=== PATIENT | male | born 1970 ===

== ENCOUNTER 2020-05-23 08:24 | Outpatient (REF) | payer OTHER, SELFPAY ==
[2020-05-23 09:35] LABS: Alanine Aminotransferase 16 U/L (0-40); Albumin Level 4.4 g/dL (3.5-5.0); Alkaline Phosphatase 54 U/L (39-117); Anion Gap 13 (12-20); Aspartate Amino Transferase 15 U/L (5-37); Bilirubin Total 0.6 mg/dL (0.0-1.0); Blood Urea Nitrogen 19 mg/dL (9-16); Calcium 9.4 mg/dL (8.4-10.2); Carbon Dioxide 30 mmol/L (22-29); Chloride 101 mmol/L (96-108); Cholesterol 302 mg/dL; Estimated Glomerular Filt Rate 54; Glucose Fasting 116 mg/dL (60-99); HDL Cholesterol 42 mg/dL; Potassium 3.7 mmol/l (3.3-5.1); Sodium 140 mmol/L (135-145); Total Protein 7.2 g/dL (6.5-8.0); Triglycerides 737 mg/dL
== END 2020-05-23 08:25 | disposition home or self-care (01) ==
LOC: HO.LAB 08:24
PROVIDERS: Visit Provider Internal Medicine
DX: Z12.12 Encounter for screening for malignant neoplasm of rectum (principal); Z12.11 Encounter for screening for malignant neoplasm of colon; E78.2 Mixed hyperlipidemia; I10 Essential (primary) hypertension; R00.0 Tachycardia, unspecified
CPT/HCPCS: 80053; 80061

== ENCOUNTER 2020-05-30 15:49 | Emergency (ER) | payer OTHER, SELFPAY ==
[2020-05-30 16:07] VITALS: BP 171/110; BP 195/107; PULSE 71; PULSE 98; RESP 20; TEMP 36.7; O2SAT 100; O2SAT 97; BMI 22.6
--- NOTE | 2020-05-30 17:43 | XR_ITS ---
EXAMINATION: XR CHEST CLINICAL INFORMATION: Chest pain COMPARISON: Prior chest 2019 TECHNIQUE: 2 views of the chest were obtained. FINDINGS: No significant abnormality is noted involving the heart, lungs, mediastinum, bony thorax or soft tissues. XR/XR chest 2V IMPRESSION: Unremarkable examination.
--- NOTE | 2020-05-30 17:51 | ED.CHESTPAIN ---
HPI - Chest Pain General Chief Complaint: Chest Pain Stated Complaint: htn Time Seen by Provider: 05/30/20 17:20 Source: patient and care transition mgr Mode of arrival: ambulatory Limitations: no limitations and language barrier History of Present Illness HPI narrative: 50-year-old male with a past medical history of anxiety, depression, GERD, asthma, hypertension and hyperlipidemia here with hypertension, chest discomfort, anxiety and palpitations since this morning. The patient tells me his blood pressure has been running high at home for the last month. His doctor has been changing his medications. He last saw his PCP on 05/27 and Norvasc 5 mg was started. The patient tells me he did not want to take his medications as he previously had a reaction and that the pain and did not take it. He is on propanolol 60 mg daily and clonidine 0.1 mg p.r.n.. Today he tells me he woke up with some chest discomfort and feeling anxious with palpitations. He checked his blood pressure at home and it was 200/100 and he brought himself to the emergency department. No headache, vomiting, vision changes. MD complaint: chest discomfort Onset (ago): day(s) Prior episodes: Yes Onset: awoke with symptoms Pain location: substernal Pain radiation: none Severity: mild Quality: heaviness Relieving factors: nothing Exacerbating factors: nothing Treatment prior to arrival: none Related Data Home Medications Medication Instructions Recorded Confirmed albuterol sulfate 90 mcg/actuation 2 puff PO Q4-6H PRN 04/22/20 04/22/20 aerosol inhaler famotidine 40 mg tablet 40 mg PO BID PRN 04/22/20 05/27/20 montelukast 10 mg tablet 10 mg PO DAILY 04/22/20 05/27/20 clonidine HCl 0.1 mg tablet 0.1 mg PO DAILY tab 05/27/20 05/27/20 fluticasone 250 mcg-salmeterol 50 1 inh INHALATION BID ea 05/27/20 05/27/20 mcg/dose blistr powdr for inhalation gabapentin 800 mg tablet 800 mg PO BID tab 05/27/20 05/27/20 Previous Rx's Medication Instructions Recorded escitalopram oxalate 10 mg tablet 10 mg PO DAILY 30 Days #30 tab 04/22/20 alprazolam 0.25 mg tablet 0.25 mg PO BEDTIME PRN #14 tab 05/27/20 amlodipine 5 mg tablet 5 mg PO DAILY #30 tab 05/27/20 hydrochlorothiazide 25 mg PO DAILY #20 tab 05/30/20 Allergies Allergy/AdvReac Type Severity Reaction Status Date / Time sumatriptan Allergy Unknown headaches Verified 05/30/20 16:12 nifedipine AdvReac Intermediate anxious Verified 05/30/20 16:12 Review of Systems Review of Systems: Yes all other systems are reviewed and are negative Constitutional: Constitutional: Reports no additional constitutional complaints, Denies body ache(s), Denies chills, Denies fever(s), Denies headache(s) and Denies weakness Eyes: Eyes: Reports no additional eye complaints and Denies change in vision ENT: Reports system reviewed and no additional complaints, except as documented, Denies dizziness, Denies headache(s), Denies nasal congestion, Denies nasal discharge and Denies neck pain Cardiovascular: Cardiovascular: Reports no additional cardiovascular complaints, Reports chest pain, Denies leg edema and Denies dyspnea Comments: Palpitation Respiratory: Respiratory: Reports no additional respiratory complaints, Denies cough and Denies dyspnea Gastrointestinal: Gastrointestinal: Reports no additional gastrointestinal complaints, Denies abdominal pain, Denies diarrhea, Denies nausea and Denies vomiting Genitourinary: Genitourinary: Denies urinary incontinence Musculoskeletal: Musculoskeletal: Reports no additional musculoskeletal complaints, Denies back pain, Denies arthralgias, Denies joint swelling, Denies neck pain, Denies numbness and Denies tingling Integumentary/Breasts: Skin/Breast: Reports system reviewed and no additional complaints, except as docu and Denies rash Neurologic: Reports system reviewed and no additional complaints, except as documented, Denies Abnormal speech present, Denies dizziness, Denies headache(s), Denies numbness, Denies tingling and Denies weakness Psychiatric: Psychiatric: Reports anxiety PMFSH Past Medical History Attestation statement: The following information was validated with the patient. Source: old records reviewed and nursing notes reviewed Medical History Essential hypertension GERD (gastroesophageal reflux disease) Headache Hyperostosis Mixed hyperlipidemia Moderate asthma Severe depression Tachycardia Surgical History History of hernia surgery Family History Family History Father No problems noted. Mother No problems noted. Social History Social History Smoking Status: Former smoker Advance Directives: No Advance Directives Information Provided: Yes Physical Exam Vital Signs: Vital Signs: Last Vital Signs Temp 98.6 F 05/30/20 19:37 Pulse 69 05/30/20 19:37 Resp 12 05/30/20 19:37 BP 146/102 H 05/30/20 19:37 Pulse Ox 97 05/30/20 19:37 Body Mass Index 22.6 Const: Other: anxious General: cooperative Orientation/consciousness: patient oriented x3 Limitations: no limitations HENMT: Head: Yes normal to inspection Ears: hearing grossly normal bilaterally General nose exam: Normal external nose present Face and sinus: Yes normal facial exam Mouth: Normal oral and palatal mucosa present Throat: Yes posterior oropharynx normal Eyes: General: appearance normal, both eyes and all related structures Pupils: Equal, round and reactive pupils present Neck: Neck: Yes normal visual inspection Chest: Chest palpation & inspection: normal inspection of the chest Resp: Effort & Inspection: normal respiratory effort Auscultation: clear to auscultation bilaterally Cardio: Rate: regular rate Rhythm: regular rhythm Peripheral pulses: Peripheral pulses 2+ throughout GI: Inspection: Yes normal to inspection Palpation (GI): Soft to palpation and nontender Auscultation: normal bowel sounds Back/Spine/Pelvis: Thoracic/Lumbar Spine: thoracic and lumbar spine normal to inspection Skin: General skin exam: no rashes or lesions noted Neuro: General: patient oriented x3, no focal motor deficits and normal sensation to monofilament Cranial nerves: Yes Equal, round and reactive pupils present Cognition (Neuro): normal cognition Speech: No Abnormal speech present Gait exam (Neuro): Normal gait present Motor exam (neuro): 5/5 motor strength present throughout Extrem: General: Yes normal to inspection Course Course Course Narrative: 50-year-old male here with high blood pressure, chest discomfort, anxiety and palpitations with waking this morning. He does have chronic high blood pressure which is uncontrolled. He did see his primary care doctor this week and was recommended to start a new medication but he has been noncompliant with this. On arrival the patient has a normal exam, he is well appearing although very anxious. He is hypertensive with a blood pressure of 170/110. Will check chest x-ray, EKG, labs including troponin and manage blood pressure here. 2000- blood pressure now improved to 146/102. Patient is feeling improved. His labs include troponin are unremarkable. His chest x-ray is also unremarkable his EKG is unremarkable. Discussed findings with patient. We will send him home with hydrochlorothiazide and have him follow-up with his primary care doctor in 1-2 days. Reviewed worrisome signs and symptoms and when to return to the emergency department. Comfortable discharge home. MDM - Chest Pain MDM Narrative Medical decision making narrative: Hypertensive urgency, ACS, anxiety, This likely hypertensive urgency with improving blood pressure when 1 dose of antihypertensives, less likely ACS with negative troponin unremarkable EKG, Medical Records Data Attestation: I reviewed the patient's medical records. Lab Data Attestation: I reviewed the patient's lab results. Result diagrams: 05/30/20 18:33 05/30/20 18:33 Labs: Lab Results 05/30/20 05/30/20 05/30/20 Range/Units 18:33 18:33 18:33 WBC 8.9 (4.8-10.8) X10*3/uL RBC 4.35 L (4.60-5.80) X10*6/uL Hgb 13.5 L (14.0-18.0) g/dl Hct 38.3 L (42-52) % MCV 88.0 (80-98) fL MCH 31.0 (27.0-33.0) pg MCHC 35.2 (31.0-36.0) g/dl RDW 12.4 (11.0-16.0) % Plt Count 204 (160-400) X10*3/uL MPV 12.3 (9.4-12.4) fL Immature Gran % (Auto) 0.4 (0.0-0.4) % Neut % (Auto) 77.9 H (45-73) % Lymph % (Auto) 14.9 L (20-40) % Bartholomew % (Auto) 5.7 (2-11) % Eos % (Auto) 0.9 (0-4) % Baso % (Auto) 0.2 (0-2) % Lymph # (Auto) 1.3 (1.2-4.9) X10*3/uL Bartholomew # (Auto) 0.5 (0.1-1.2) X10*3/uL Eos # (Auto) 0.1 (0.0-0.4) X10*3/uL Baso # (Auto) 0.0 (0.0-0.2) X10*3/uL Abs Immat Gran (auto) 0.04 H (0.00-0.03) X10*3/uL Absolute Neuts (auto) 6.9 (2.0-8.3) X10*3/uL Absolute Nucleated RBC 0.000 (0.0-0.012) X10*3/uL Nucleated RBC % (auto) 0.0 (0.0-0.2) /100WBC Hold Blue Top Sodium 136 (135-145) mmol/L Potassium 3.9 (3.3-5.1) mmol/l Chloride 99 (96-108) mmol/L Carbon Dioxide 26 (22-29) mmol/L Anion Gap 15 (12-20) BUN 16 (9-16) mg/dL Creatinine 1.30 (0.5-1.4) mg/dL Estim Creat Clear Calc 65.2 Estimated GFR 58 Random Glucose 108 (60-115) mg/dL Calcium 9.2 (8.4-10.2) mg/dL Magnesium 2.1 (1.6-2.6) mg/dL Troponin I High Sens 3.7 (<3.5-35.0) ng/L 05/30/20 Range/Units 18:33 WBC (4.8-10.8) X10*3/uL RBC (4.60-5.80) X10*6/uL Hgb (14.0-18.0) g/dl Hct (42-52) % MCV (80-98) fL MCH (27.0-33.0) pg MCHC (31.0-36.0) g/dl RDW (11.0-16.0) % Plt Count (160-400) X10*3/uL MPV (9.4-12.4) fL Immature Gran % (Auto) (0.0-0.4) % Neut % (Auto) (45-73) % Lymph % (Auto) (20-40) % Bartholomew % (Auto) (2-11) % Eos % (Auto) (0-4) % Baso % (Auto) (0-2) % Lymph # (Auto) (1.2-4.9) X10*3/uL Bartholomew # (Auto) (0.1-1.2) X10*3/uL Eos # (Auto) (0.0-0.4) X10*3/uL Baso # (Auto) (0.0-0.2) X10*3/uL Abs Immat Gran (auto) (0.00-0.03) X10*3/uL Absolute Neuts (auto) (2.0-8.3) X10*3/uL Absolute Nucleated RBC (0.0-0.012) X10*3/uL Nucleated RBC % (auto) (0.0-0.2) /100WBC Hold Blue Top SEE NOTE Sodium (135-145) mmol/L Potassium (3.3-5.1) mmol/l Chloride (96-108) mmol/L Carbon Dioxide (22-29) mmol/L Anion Gap (12-20) BUN (9-16) mg/dL Creatinine (0.5-1.4) mg/dL Estim Creat Clear Calc Estimated GFR Random Glucose (60-115) mg/dL Calcium (8.4-10.2) mg/dL Magnesium (1.6-2.6) mg/dL Troponin I High Sens (<3.5-35.0) ng/L Imaging Data Chest x-ray: Attestation: I personally reviewed and interpreted this imaging study as follows: Radiologist's impression: EXAMINATION: XR CHEST CLINICAL INFORMATION: Chest pain COMPARISON: Prior chest 2019 TECHNIQUE: 2 views of the chest were obtained. FINDINGS: No significant abnormality is noted involving the heart, lungs, mediastinum, bony thorax or soft tissues. XR/XR chest 2V IMPRESSION: Unremarkable examination. ECG Data ECG #1: Attestation: I personally reviewed and interpreted this ECG as follows: ECG interpretation date: 05/30/20 Interpretation: normal sinus rhythm with a rate of 66, normal [place], normal QRS, normal QT Discharge Plan Discharge Clinical Impression: Hypertension Patient Disposition: Home, Self-Care Instructions: Chronic Hypertension (ED) Additional Instructions: start your hydrochlorothiazide tomorrow Follow-up with your primary care doctor Tuesday Prescriptions: New hydrochlorothiazide 25 mg tablet 25 mg PO DAILY Qty: 20 RF: 0 No Action albuterol sulfate 90 mcg/actuation HFA aerosol inhaler 2 puff PO Q4-6H PRNRF: 0 montelukast 10 mg tablet 10 mg PO DAILY RF: 0 famotidine 40 mg tablet 40 mg PO BID PRNRF: 0 escitalopram oxalate 10 mg tablet 10 mg PO DAILY 30 Days Qty: 30 RF: 6 clonidine HCl 0.1 mg tablet 0.1 mg PO DAILY RF: 0 gabapentin 800 mg tablet 800 mg PO BID RF: 0 fluticasone propion-salmeterol 250-50 mcg/dose blister with device 1 inh inhalation BID RF: 0 amlodipine 5 mg tablet 5 mg PO DAILY Qty: 30 RF: 3 alprazolam 0.25 mg tablet 0.25 mg PO BEDTIME PRN (Reason: anxiety) Qty: 14 RF: 0 Referrals: Physician,Unknown [Primary Care Provider] - 2 days Interventions: ED Discharge Assessment Last Done: 05/30/20 20:09 Discharge Date/Time: 05/30/20 20:15
[2020-05-30] MEDS: hydroCHLOROthiazide 25 MG TABLET PO (18:34)
[2020-05-30 18:35] VITALS: BP 168/110; PULSE 97; RESP 18; O2SAT 97
[2020-05-30 18:41] LABS: MANUAL DIFF FLAG NO
[2020-05-30 18:42] LABS: Basophils Percent Auto 0.2 % (0-2); Eosinophils Absolute Auto 0.1 X10*3/uL (0.0-0.4); Eosinophils Percent Auto 0.9 % (0-4); Hematocrit 38.3 % (42-52); Hemoglobin 13.5 g/dl (14.0-18.0); Imm Gran Abs Auto 0.04 X10*3/uL (0.00-0.03); Imm Gran Pct Auto 0.4 % (0.0-0.4); Lymphocytes Absolute Auto 1.3 X10*3/uL (1.2-4.9); Lymphocytes Percent Auto 14.9 % (20-40); Mean Corpuscular HGB Conc 35.2 g/dl (31.0-36.0); Mean Platelet Volume 12.3 fL (9.4-12.4); Monocytes Absolute Auto 0.5 X10*3/uL (0.1-1.2); Monocytes Percent Auto 5.7 % (2-11); Neutrophils Absolute Auto 6.9 X10*3/uL (2.0-8.3); Neutrophils Percent Auto 77.9 % (45-73); Platelet Count 204 X10*3/uL (160-400); Red Blood Count 4.35 X10*6/uL (4.60-5.80); Red Cell Distribution Width 12.4 % (11.0-16.0); White Blood Count 8.9 X10*3/uL (4.8-10.8)
[2020-05-30 19:15] LABS: Anion Gap 15 (12-20); Blood Urea Nitrogen 16 mg/dL (9-16); Calcium 9.2 mg/dL (8.4-10.2); Carbon Dioxide 26 mmol/L (22-29); Chloride 99 mmol/L (96-108); Creatinine Clr Calc Pharmacy 65.2; Estimated Glomerular Filt Rate 58; Glucose Random 108 mg/dL (60-115); Magnesium 2.1 mg/dL (1.6-2.6); Potassium 3.9 mmol/l (3.3-5.1); Sodium 136 mmol/L (135-145)
[2020-05-30 19:18] LABS: Troponin-I High Sensitivity 3.7 ng/L (<3.5-35.0)
[2020-05-30 19:37] VITALS: BP 146/102; PULSE 69; RESP 12; TEMP 37; O2SAT 97
== END 2020-05-30 20:15 | disposition home or self-care (01) ==
PROVIDERS: Nurse Practitioner Family; Emergency Provider Emergency Medicine
DX: R07.9 Chest pain, unspecified (principal); I10 Essential (primary) hypertension; F41.9 Anxiety disorder, unspecified; F33.1 Major depressive disorder, recurrent, moderate; Z79.899 Other long term (current) drug therapy; Z87.891 Personal history of nicotine dependence
CPT/HCPCS: 36415; 71046; 80048; 83735; 84484; 85025; 93005; 99283

== ENCOUNTER → 2020-06-23 13:33 | Outpatient (REF) | payer OTHER, SELFPAY ==
--- NOTE | 2020-06-23 13:28 | ECG_ITS ---
Hook-up date: 2020-06-23 13:56:00 Duration: 25:18:00 Test Indications: palpitations Medications: 712255 QRS complexes 1 Ventricular ectopics which represent <1 % of total QRS comp. 13 Supraventricular ectopics which represent <1 % of total QRS comp. * Paced QRS complexs which represent % of total QRS comp. VENTRICULAR ECTOPY 1 Isolated 0 Bigeminal Cycles 0 Couplets 0 Runs 0 Beats in Runs * Beats LONGEST at * BPM at :: -- * Beats FASTEST at * BPM at :: -- SUPRAVENTRICULAR ECTOPY 13 Isolated 0 Couplets 0 Runs 0 Beats in Runs * Beats LONGEST at * BPM at :: -- * Beats FASTEST at * BPM at :: -- HEART RATES 54 MIN at 06:18:23 2020-06-24 79 AVG 113 MAX at 21:08:31 2020-06-23 LONGEST RR 1.2160 secs at 06:18:35 2020-06-24 S-T LEVELS Channel 1 - 128 mm at 13:56:00 2020-06-23 - 128 mm at 13:56:00 2020-06-23 Channel 2 - 128 mm at 13:56:00 2020-06-23 - 128 mm at 13:56:00 2020-06-23 Channel 3 - 128 mm at 03:31:51 -- - 128 mm at 03:31:51 Underlying rhythm is sinus; Average ventricular rate 79/min; range 54-113/min; Very rare ectopy; No sustained arrhythmias; Patient did not return diary Referred By: Jayashree Zepeda Overread By: ZOEY LOPEZ
== END ==
LOC: HO.CARD 13:33
PROVIDERS: PCP Internal Medicine; Visit Provider Internal Medicine
DX: R00.2 Palpitations (principal)
CPT/HCPCS: 93225; 93226

== ENCOUNTER → 2020-07-16 10:24 | Outpatient (BNVA) | payer OTHER, SELFPAY | PROVIDERS: PCP Internal Medicine; Visit Provider Internal Medicine | DX: I10 Essential (primary) hypertension (principal); F41.9 Anxiety disorder, unspecified | CPT/HCPCS: 93005; 99202 ==

== ENCOUNTER 2020-07-18 09:41 | Outpatient (REF) | payer OTHER, SELFPAY ==
[2020-07-18 10:27] LABS: MANUAL DIFF FLAG NO
[2020-07-18 10:43] LABS: Basophils Percent Auto 0.4 % (0-2); Eosinophils Absolute Auto 0.5 X10*3/uL (0.0-0.4); Eosinophils Percent Auto 6.7 % (0-4); Hematocrit 41.5 % (42-52); Hemoglobin 14.1 g/dl (14.0-18.0); Imm Gran Abs Auto 0.03 X10*3/uL (0.00-0.03); Imm Gran Pct Auto 0.4 % (0.0-0.4); Lymphocytes Absolute Auto 1.4 X10*3/uL (1.2-4.9); Lymphocytes Percent Auto 20.8 % (20-40); Mean Corpuscular Hemoglobin 31.2 pg (27.0-33.0); Mean Corpuscular Volume 91.8 fL (80-98); Mean Platelet Volume 12.6 fL (9.4-12.4); Monocytes Absolute Auto 0.6 X10*3/uL (0.1-1.2); Monocytes Percent Auto 8.9 % (2-11); Neutrophils Absolute Auto 4.3 X10*3/uL (2.0-8.3); Neutrophils Percent Auto 62.8 % (45-73); Platelet Count 194 X10*3/uL (160-400); Red Blood Count 4.52 X10*6/uL (4.60-5.80); Red Cell Distribution Width 12.8 % (11.0-16.0); White Blood Count 6.9 X10*3/uL (4.8-10.8)
[2020-07-18 11:07] LABS: Alanine Aminotransferase 13 U/L (0-40); Albumin Level 4.4 g/dL (3.5-5.0); Alkaline Phosphatase 63 U/L (39-117); Anion Gap 12 (12-20); Aspartate Amino Transferase 16 U/L (5-37); Bilirubin Total 0.9 mg/dL (0.0-1.0); Blood Urea Nitrogen 18 mg/dL (9-16); Calcium 9.5 mg/dL (8.4-10.2); Carbon Dioxide 32 mmol/L (22-29); Chloride 102 mmol/L (96-108); Cholesterol 264 mg/dL; Estimated Glomerular Filt Rate 44; Glucose Fasting 102 mg/dL (60-99); HDL Cholesterol 44 mg/dL; Potassium 4.4 mmol/l (3.3-5.1); Sodium 142 mmol/L (135-145); Triglycerides 449 mg/dL
[2020-07-18 11:31] LABS: TSH reflex Free T4 0.93 mIU/mL (0.32-4.0)
== END 2020-07-18 09:42 | disposition home or self-care (01) ==
LOC: HO.LAB 09:41
PROVIDERS: Absent Provider Internal Medicine; PCP Internal Medicine; Visit Provider Internal Medicine
DX: I10 Essential (primary) hypertension (principal); E78.2 Mixed hyperlipidemia; R00.0 Tachycardia, unspecified
CPT/HCPCS: 36415; 80053; 80061; 84443; 85025

== ENCOUNTER → 2020-08-06 13:05 | Outpatient (REF) | payer OTHER, SELFPAY ==
--- NOTE | 2020-08-06 13:08 | CA_ITS ---
Transthoracic Echocardiogram Patient (Last, First, Middle): Gaetano Tanner Leonela Waldrop Gender: Male Date of : 1970 Age: 50 Procedure Date: 08/06/2020 Procedure Type: Transthoracic Echocardiogram Location: OP Height: 175.26 cm Weight: 75.75 kg BSA: 1.91 m2 Heart Rate: bpm BP: 150 / 90 mmHg Supply Chain Intern: DSShahrzad Referring MD: Nadir Dawson MD Insurance Service Representative: Ganesh Arnold MD Symptoms: I10 - Essential (primary) hypertension Study Quality: Good ECG Rhythm: Sinus Conclusions: - Essentially normal study with aneurysmal interatrial septum towards the right Findings Left Ventricle Normal left ventricular size, thickness, and systolic function. The visually estimated ejection fraction is between 60-65%. Spectral Doppler is indicative of an impaired relaxation filling pattern. E/E prime ratio is between 8 and 15 consistent with indeterminate filling pressures. Right Ventricle Normal right ventricular cavity size and systolic function. Atria Both atria are normal in size. There is an interatrial septal aneurysm seen bowing to the right. Interatrial shunt cannot be excluded. Aortic Valve Normal aortic valve structure and function. There is no aortic valve stenosis. There is no aortic valve regurgitation. Mitral Valve Normal mitral valve structure and function. There is trace mitral valve regurgitation. There is no mitral valve stenosis. Pulmonic Valve The pulmonic valve is likely normal. There is trace pulmonic valve regurgitation. Tricuspid Valve Normal tricuspid valve structure. Tricuspid regurgitation envelope is inadequate for calculation of right ventricular systolic pressure. Great Vessels All visible segments of the aorta are normal in size. The pulmonary artery was not well visualized. Venous The inferior vena cava is normal in size and collapses greater than 50% with inspiration. Pericardium/Pleural There is no evidence of pericardial effusion. Prior Study Comparison No significant change compared to prior study dated: 02/17/2018. Recommendations, Care & Conclusions Recommend contrast study to evaluate intracardiac shunting. Measurements 2D Linear Measurements IVSd: 0.90 0.6-0.9/0.6-1.0 cm LVIDd: 4.87 3.9-5.3/4.2-5.9 cm LVIDd Index: 2.55 2.4-3.2/2.2-3.1 cm/m2 LVIDs: 3.18 2.0-3.6 cm LVPWd: 0.93 0.7-1.1 cm Ao Root: 2.80 2.1-3.5 cm LA Diam: 3.60 2.7-3.8/3.0-4.0 cm LAIDs Index: 1.88 1.5-2.3 cm/m2 LV Mass: 192.53 67-162/88-224 g LV Mass Index: 100.80 43-95/49-115 g/m2 LVOT Diam: 1.90 3.0+(-)1.3 cm 2D Systolic Function EF 4C: 64.00 >55% EF 2C: 55.40 >55% EF BiP: 59.90 >55% Mitral Valve MV Pk E: 0.90 MV PK A: 0.93 MV Decel Time: 195.00 E/A: 1.00 E'Lateral: 9.46 E'Medial: 5.66 E/E' Med: 15.90 E/E' Lat: 9.50 PHT: 57.00 MVA PHT: 3.86 Decel [place]: 4.62 Aortic Valve AoV Pk Meet: 1.33 AoV Pk Grad: 7.00 LVOT LVOT Pk Meet: 0.90 LVOT Mn Meet: 0.55 LVOT VTI: 0.20 LVOT Pk Grad: 3.00 LVOT Mn Grad: 1.00 LVOT Diam: 1.90 LVOT Area: 2.84 Diastolic Function MV Pk E: 0.90 MV Pk A: 0.93 E/A: 1.00 E'Medial: 5.66 E/E' Med: 15.90 E' Laterial: 9.46 E/E' Lat: 9.50 Tricuspid Valve RA Press: 3.00 Great Vessels Aorta Ao Root-2D: 2.80 2.0-3.7 cm Ao Asc: 2.90 2.1-3.4 cm Updated in Other Vendor System with Status of Final Ganesh Arnold MD electronically signed on 08/06/2020 3:50:20 PM with status of Final
== END ==
LOC: HO.CARD 13:05
PROVIDERS: Visit Provider Internal Medicine
DX: I10 Essential (primary) hypertension (principal)
CPT/HCPCS: 93306

== ENCOUNTER → 2020-08-13 13:10 | Outpatient (BNVA) | payer OTHER, SELFPAY | PROVIDERS: PCP Internal Medicine; Visit Provider Internal Medicine | DX: I10 Essential (primary) hypertension (principal); F41.9 Anxiety disorder, unspecified; I25.3 Aneurysm of heart | CPT/HCPCS: 99212 ==

== ENCOUNTER 2020-08-18 01:12 | Emergency (ER) | payer OTHER, SELFPAY ==
[2020-08-18] VITALS (10 sets, daily range): BP systolic 108–212; BP diastolic 69–126; PULSE 70–80; RESP 16–20; TEMP 36.9; O2SAT 95–96; BMI 25.5
--- NOTE | 2020-08-18 01:27 | ECG_ITS ---
Test Reason : HTN Blood Pressure : / mmHG Vent. Rate : 077 BPM Atrial Rate : 077 BPM P-R Int : 144 ms QRS Dur : 082 ms QT Int : 384 ms P-R-T Axes : 023 -15 051 degrees QTc Int : 434 ms Normal sinus rhythm Voltage criteria for left ventricular hypertrophy Abnormal ECG When compared with ECG of 30-MAY-2020 16:02, No significant change was found Referred By: Pricilla Holloway Electronically Signed By:Baljeet Tidwell
--- NOTE | 2020-08-18 01:56 | ED_ITS ---
HPI - General Adult General Chief complaint: General Medical Stated complaint: HIGH BP Time Seen by Provider: 08/18/20 01:26 Source: patient Mode of arrival: EMS History of Present Illness HPI narrative: This is a 50-year-old male with significant past medical history anxiety and depression who is brought in by EMS for patient's concerns regarding poorly controlled blood pressure and stating that he feels very anxious about this. However, patient denies any headache, dizziness, chest pain/palpitations, shortness of breath. Patient states that he took his medications in the morning but his blood pressure is persistently stay elevated and again took his medications in the evening and when the blood pressure did not respond decided to call EMS. Related Data Home Medications Medication Instructions Recorded Confirmed albuterol sulfate 90 mcg/actuation 2 puff PO Q4-6H PRN 04/22/20 08/13/20 aerosol inhaler famotidine 40 mg tablet 40 mg PO BID PRN 04/22/20 08/13/20 fluticasone 250 mcg-salmeterol 50 1 inh INHALATION BID ea 05/27/20 08/13/20 mcg/dose blistr powdr for inhalation cromolyn 4 % eye drops 0 drp OPHTHALMIC (EYE) 06/04/20 08/13/20 gabapentin 400 mg capsule 400 mg PO DAILY 06/24/20 08/13/20 Previous Rx's Medication Instructions Recorded rosuvastatin 10 mg tablet 10 mg PO DAILY 30 Days #30 tab 06/24/20 losartan 100 mg tablet 100 mg PO DAILY #30 tab 07/16/20 clonidine HCl 0.2 mg tablet 0.2 mg PO TID 30 Days #90 tab 07/21/20 carvedilol 12.5 mg tablet 12.5 mg PO BID #60 tab 08/13/20 Allergies Allergy/AdvReac Type Severity Reaction Status Date / Time sumatriptan Allergy Unknown headaches Verified 08/18/20 01:24 nifedipine AdvReac Intermediate anxious Verified 08/18/20 01:24 lisinopril AdvReac Mild Anxiety Verified 08/18/20 01:24 Review of Systems Review of Systems: Pertinent positives and negatives as stated in the HPI and 10 point review systems is otherwise negative. PMFSH Past Medical History Source: nursing notes reviewed Medical History Brcjt-fu-poyibkg kidney injury Anxiety Atrial septal aneurysm Benign essential hypertension Essential hypertension GERD (gastroesophageal reflux disease) Headache Hyperostosis Mixed hyperlipidemia Moderate asthma Severe depression Tachycardia Surgical History History of hernia surgery Family History Family History Father No problems noted. Mother No problems noted. Social History Social History Alcohol intake: never Smoking Status: Never smoker Smoked in Last 30 Days: No Use of substances other than those prescribed or required for medical reasons: No Advance Directives: No Advance Directives Information Provided: No Physical Exam Vital Signs: Vital Signs: Last Vital Signs Temp 98.4 F 08/18/20 01:19 Pulse 78 08/18/20 04:30 Resp 16 08/18/20 04:30 BP 140/85 H 08/18/20 04:30 Pulse Ox 96 08/18/20 04:30 Body Mass Index 25.5 VITAL SIGNS: Reviewed. GENERAL: Well developed, well nourished, moderate anxiety. HEAD: Normocephalic/atraumatic EYES: PERRLA, EOMI NOSE: Nares patent bilateral OROPHARYNX: no oral lesions noted, posterior pharynx clear NECK: Supple, no adenopathy LUNGS: Normal breath sounds.SpO2<96> CARDIOVASCULAR: Regular rate and rhythm without noted murmurs, no JVD or lower extremity edema. ABDOMEN: Soft, non-tender, non-distended with bowel sounds. NEUROLOGIC: Alert and oriented x 4. Strength and sensation to light touch were grossly intact x 4, no facial asymmetry, no pronator drift, no dysarthria. Course Course Course Narrative: This is a 50-year-old male with history and clinical presentation consistent with poorly controlled blood pressure, but likely a combination of anxiety. Will evaluate for end-organ concerns, no neurological findings or reported chest pain. Blood pressure elevation was treated with additional 5 mg of hydralazine IVP and 50 mg of hydroxyzine. On review of all investigations there are no acute findings to suggest end-organ affect of patient's blood pressure and no acute changes on EKG. Patient's blood pressure improved with a combination of hydralazine and hydroxyzine. All results and findings were discussed with him at bedside and he was strongly encouraged to follow up his primary care provider by calling the office this morning for re-evaluation and management. Medical Decision Making Lab Data Result diagrams: 08/18/20 01:53 08/18/20 01:53 Labs: Lab Results 08/18/20 08/18/20 08/18/20 Range/Units 01:53 01:53 01:53 WBC 11.9 H (4.8-10.8) X10*3/uL RBC 4.54 L (4.60-5.80) X10*6/uL Hgb 14.0 (14.0-18.0) g/dl Hct 40.5 L (42-52) % MCV 89.2 (80-98) fL MCH 30.8 (27.0-33.0) pg MCHC 34.6 (31.0-36.0) g/dl RDW 12.5 (11.0-16.0) % Plt Count 213 (160-400) X10*3/uL MPV 12.2 (9.4-12.4) fL Immature Gran % (Auto) 0.3 (0.0-0.4) % Neut % (Auto) 79.2 H (45-73) % Lymph % (Auto) 10.7 L (20-40) % [place] % (Auto) 4.9 (2-11) % Eos % (Auto) 4.6 H (0-4) % Baso % (Auto) 0.3 (0-2) % Lymph # (Auto) 1.3 (1.2-4.9) X10*3/uL [place] # (Auto) 0.6 (0.1-1.2) X10*3/uL Eos # (Auto) 0.6 H (0.0-0.4) X10*3/uL Baso # (Auto) 0.0 (0.0-0.2) X10*3/uL Abs Immat Gran (auto) 0.03 (0.00-0.03) X10*3/uL Absolute Neuts (auto) 9.4 H (2.0-8.3) X10*3/uL Absolute Nucleated RBC 0.000 (0.0-0.012) X10*3/uL Nucleated RBC % (auto) 0.0 (0.0-0.2) /100WBC Sodium 140 (135-145) mmol/L Potassium 3.9 (3.3-5.1) mmol/L Chloride 103 (96-108) mmol/L Carbon Dioxide 27 (22-29) mmol/L Anion Gap 14 (12-20) BUN 15 (9-16) mg/dL Creatinine 1.46 H (0.5-1.4) mg/dL Estim Creat Clear Calc 59.1 Estimated GFR 51 Random Glucose 136 H (60-115) mg/dL Calcium 9.7 (8.4-10.2) mg/dL Total Bilirubin 0.9 (0.0-1.0) mg/dL AST 18 (5-37) U/L ALT 19 (0-40) U/L Alkaline Phosphatase 67 (39-117) U/L Troponin I High Sens < 3.5 (<3.5-35.0) ng/L Total Protein 7.3 (6.5-8.0) g/dL Albumin 4.6 (3.5-5.0) g/dL COVID-19 ([facility]) (Negative) COVID-19 Clin Com 08/18/20 Range/Units 02:53 WBC (4.8-10.8) X10*3/uL RBC (4.60-5.80) X10*6/uL Hgb (14.0-18.0) g/dl Hct (42-52) % MCV (80-98) fL MCH (27.0-33.0) pg MCHC (31.0-36.0) g/dl RDW (11.0-16.0) % Plt Count (160-400) X10*3/uL MPV (9.4-12.4) fL Immature Gran % (Auto) (0.0-0.4) % Neut % (Auto) (45-73) % Lymph % (Auto) (20-40) % [place] % (Auto) (2-11) % Eos % (Auto) (0-4) % Baso % (Auto) (0-2) % Lymph # (Auto) (1.2-4.9) X10*3/uL [place] # (Auto) (0.1-1.2) X10*3/uL Eos # (Auto) (0.0-0.4) X10*3/uL Baso # (Auto) (0.0-0.2) X10*3/uL Abs Immat Gran (auto) (0.00-0.03) X10*3/uL Absolute Neuts (auto) (2.0-8.3) X10*3/uL Absolute Nucleated RBC (0.0-0.012) X10*3/uL Nucleated RBC % (auto) (0.0-0.2) /100WBC Sodium (135-145) mmol/L Potassium (3.3-5.1) mmol/L Chloride (96-108) mmol/L Carbon Dioxide (22-29) mmol/L Anion Gap (12-20) BUN (9-16) mg/dL Creatinine (0.5-1.4) mg/dL Estim Creat Clear Calc Estimated GFR Random Glucose (60-115) mg/dL Calcium (8.4-10.2) mg/dL Total Bilirubin (0.0-1.0) mg/dL AST (5-37) U/L ALT (0-40) U/L Alkaline Phosphatase (39-117) U/L Troponin I High Sens (<3.5-35.0) ng/L Total Protein (6.5-8.0) g/dL Albumin (3.5-5.0) g/dL COVID-19 ([facility]) Negative (Negative) COVID-19 Clin Com See Note ECG Data Attestation: I personally reviewed and interpreted this ECG as follows: Prior ECG tracings: available for review (05/30/2020 no acute changes on comparison.) Interpretation: Normal sinus rhythm, HR-77, no evidence of acute ischemia, OK/QRS/QTC are within normal limits. Discharge Plan Discharge Clinical Impression: Uncontrolled hypertension, Anxiety Patient Disposition: Home, Self-Care Instructions: DASH Eating Plan (ED), Hypertension (ED), Anxiety (ED) Additional Instructions: 1. Please resume all home medications as prescribed. 2. Please call the office of your primary care provider this morning to discuss further blood pressure control. Do not hesitate to return to the emergency department if you have any sudden worsening of your symptoms. Prescriptions: No Action clonidine HCl 0.2 mg tablet 0.2 mg PO TID 30 Days Qty: 90 RF: 3 albuterol sulfate 90 mcg/actuation HFA aerosol inhaler 2 puff PO Q4-6H PRNRF: 0 famotidine 40 mg tablet 40 mg PO BID PRNRF: 0 fluticasone propion-salmeterol 250-50 mcg/dose blister with device 1 inh inhalation BID RF: 0 gabapentin 400 mg capsule 400 mg PO DAILY RF: 0 rosuvastatin 10 mg tablet 10 mg PO DAILY 30 Days Qty: 30 RF: 3 cromolyn 4 % drops 0 drp ophthalmic (eye) RF: 0 losartan 100 mg tablet 100 mg PO DAILY Qty: 30 RF: 5 carvedilol [Coreg] 12.5 mg tablet 12.5 mg PO BID Qty: 60 RF: 5 Referrals: [facility] [Primary Care Provider] - 2 days (Re-evaluation and management after evaluation in the emergency department for uncontrolled high blood pressure without acute findings on UA, EKG, and negative troponin) Interventions: ED Discharge Assessment Last Done: 08/18/20 05:38 Discharge Date/Time: 08/18/20 05:39
[2020-08-18 01:57] LABS: Basophils Percent Auto 0.3 % (0-2); Eosinophils Absolute Auto 0.6 X10*3/uL (0.0-0.4); Eosinophils Percent Auto 4.6 % (0-4); Hematocrit 40.5 % (42-52); Imm Gran Abs Auto 0.03 X10*3/uL (0.00-0.03); Imm Gran Pct Auto 0.3 % (0.0-0.4); Lymphocytes Absolute Auto 1.3 X10*3/uL (1.2-4.9); Lymphocytes Percent Auto 10.7 % (20-40); MANUAL DIFF FLAG NO; Mean Corpuscular HGB Conc 34.6 g/dl (31.0-36.0); Mean Corpuscular Hemoglobin 30.8 pg (27.0-33.0); Mean Corpuscular Volume 89.2 fL (80-98); Mean Platelet Volume 12.2 fL (9.4-12.4); Monocytes Absolute Auto 0.6 X10*3/uL (0.1-1.2); Monocytes Percent Auto 4.9 % (2-11); Neutrophils Absolute Auto 9.4 X10*3/uL (2.0-8.3); Neutrophils Percent Auto 79.2 % (45-73); Platelet Count 213 X10*3/uL (160-400); Red Blood Count 4.54 X10*6/uL (4.60-5.80); Red Cell Distribution Width 12.5 % (11.0-16.0); White Blood Count 11.9 X10*3/uL (4.8-10.8)
[2020-08-18] MEDS: hydrALAZINE HCl 20 MG/ML VIAL 5 MG IVPUSH (02:28)
[2020-08-18 02:32] LABS: Alanine Aminotransferase 19 U/L (0-40); Albumin Level 4.6 g/dL (3.5-5.0); Alkaline Phosphatase 67 U/L (39-117); Anion Gap 14 (12-20); Aspartate Amino Transferase 18 U/L (5-37); Bilirubin Total 0.9 mg/dL (0.0-1.0); Blood Urea Nitrogen 15 mg/dL (9-16); Calcium 9.7 mg/dL (8.4-10.2); Carbon Dioxide 27 mmol/L (22-29); Chloride 103 mmol/L (96-108); Creatinine Clr Calc Pharmacy 59.1; Estimated Glomerular Filt Rate 51; Glucose Random 136 mg/dL (60-115); Potassium 3.9 mmol/L (3.3-5.1); Sodium 140 mmol/L (135-145); Total Protein 7.3 g/dL (6.5-8.0)
[2020-08-18 02:37] LABS: Troponin-I High Sensitivity < 3.5 ng/L (<3.5-35.0)
[2020-08-18] MEDS: hydrOXYzine HCL 50 MG TABLET PO (02:40)
[2020-08-18 03:18] LABS: COVID-19 Test Negative (Negative)
== END 2020-08-18 05:39 | disposition home or self-care (01) ==
PROVIDERS: Emergency Provider Student in an Organized Health Care Education/Training Program
DX: I16.0 Hypertensive urgency (principal); F41.9 Anxiety disorder, unspecified; Z20.822 Contact with and (suspected) exposure to COVID-19; I12.9 Hypertensive chronic kidney disease with stage 1 through stage 4 chronic kidney disease, or unspecified chronic kidney disease; N18.9 Chronic kidney disease, unspecified; N17.9 Acute kidney failure, unspecified; Z79.899 Other long term (current) drug therapy
CPT/HCPCS: 36415; 80053; 84484; 85025; 87635; 93005; 96374; 99284

== ENCOUNTER → 2020-09-22 13:56 | Outpatient (BNVA) | payer OTHER, SELFPAY | PROVIDERS: Visit Provider Internal Medicine | DX: I10 Essential (primary) hypertension (principal); I25.3 Aneurysm of heart; F41.9 Anxiety disorder, unspecified; Z79.899 Other long term (current) drug therapy | CPT/HCPCS: Q3014 ==

== ENCOUNTER 2021-02-17 07:54 | Outpatient (REF) | payer OTHER, SELFPAY ==
[2021-02-17 08:23] LABS: MANUAL DIFF FLAG NO
[2021-02-17 08:31] LABS: Basophils Percent Auto 0.4 % (0-2); Eosinophils Absolute Auto 0.4 X10*3/uL (0.0-0.4); Eosinophils Percent Auto 5.8 % (0-4); Hematocrit 39.8 % (42-52); Hemoglobin 13.6 g/dl (14.0-18.0); Imm Gran Abs Auto 0.03 X10*3/uL (0.00-0.03); Imm Gran Pct Auto 0.4 % (0.0-0.4); Lymphocytes Absolute Auto 1.6 X10*3/uL (1.2-4.9); Mean Corpuscular HGB Conc 34.2 g/dl (31.0-36.0); Mean Corpuscular Hemoglobin 31.3 pg (27.0-33.0); Mean Corpuscular Volume 91.7 fL (80-98); Mean Platelet Volume 12.2 fL (9.4-12.4); Monocytes Absolute Auto 0.5 X10*3/uL (0.1-1.2); Monocytes Percent Auto 7.5 % (2-11); Neutrophils Absolute Auto 4.4 X10*3/uL (2.0-8.3); Neutrophils Percent Auto 62.9 % (45-73); Platelet Count 195 X10*3/uL (160-400); Red Blood Count 4.34 X10*6/uL (4.60-5.80); Red Cell Distribution Width 12.6 % (11.0-16.0)
[2021-02-17 08:49] LABS: Alanine Aminotransferase 15 U/L (0-40); Albumin Level 4.4 g/dL (3.5-5.0); Alkaline Phosphatase 53 U/L (39-117); Anion Gap 12 (12-20); Aspartate Amino Transferase 15 U/L (5-37); Bilirubin Total 1.1 mg/dL (0.0-1.0); Blood Urea Nitrogen 22 mg/dL (9-16); Calcium 9.9 mg/dL (8.4-10.2); Carbon Dioxide 30 mmol/L (22-29); Chloride 101 mmol/L (96-108); Cholesterol 266 mg/dL; Estimated Glomerular Filt Rate 39; Glucose Fasting 121 mg/dL (60-99); HDL Cholesterol 37 mg/dL; Potassium 4.4 mmol/L (3.3-5.1); Sodium 139 mmol/L (135-145); Total Protein 7.2 g/dL (6.5-8.0); Triglycerides 546 mg/dL
[2021-02-17 09:11] LABS: TSH reflex Free T4 1.41 uIU/mL (0.32-4.0)
== END 2021-02-17 07:55 | disposition home or self-care (01) ==
LOC: HO.LAB 07:54
PROVIDERS: PCP Internal Medicine; Visit Provider Internal Medicine
DX: R00.0 Tachycardia, unspecified (principal); I10 Essential (primary) hypertension; E78.5 Hyperlipidemia, unspecified
CPT/HCPCS: 36415; 80053; 80061; 84443; 85025

== ENCOUNTER 2021-10-23 15:02 | Outpatient (REF) | payer OTHER, SELFPAY ==
[2021-10-23 17:06] LABS: Influenza A PCR POSITIVE (Negative); Influenza B PCR NEGATIVE (Negative); Resp Syncy Virus RNA Qual PCR NEGATIVE (Negative); SARS COV2 PCR INHOUSE NEGATIVE (Negative)
== END 2021-10-23 15:03 | disposition home or self-care (01) ==
LOC: HO.LAB 15:02
PROVIDERS: Visit Provider Hospitalist
DX: Z20.822 Contact with and (suspected) exposure to COVID-19 (principal); R51.9 Headache, unspecified; R06.00 Dyspnea, unspecified
CPT/HCPCS: 0241U

== ENCOUNTER 2023-02-14 14:58 | Outpatient (AMB) | payer OTHER, SELFPAY ==
[2023-02-14 15:03] VITALS: BP 130/90; PULSE 82; O2SAT 98; BMI 21.4
--- NOTE | 2023-02-14 15:03 | A.OFFPC_ITS ---
Vital Signs 02/14/23 15:03 Height 5 ft 9 in Weight 145 lb BMI 21.4 BP 130/90 H Blood Pressure Location Lt brachial Position Sitting Pulse 82 Pulse Source Pulse Oximeter Pulse Oximetry (%) 98 Oxygen Delivery Method Room Air Intake Visit Reasons: bp Intake Note: Pt is here for BP check. 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 Required: No Accompanied by: Self / Same As Patient Allergies sumatriptan Allergy (Mild, Verified 02/14/23 15:14) headaches nifedipine Adverse Reaction (Intermediate, Verified 02/14/23 15:14) anxious lisinopril Adverse Reaction (Mild, Verified 02/14/23 15:14) Anxiety Medication List - Last Reconciled 02/14/23 by Greta Olivera MD betamethasone dipropionate 0.05% 1 appl topical BID PRN clonidine HCl 0.3 mg PO TID 90 days famotidine 40 mg PO BID fluticasone propion-salmeterol 100-50 mcg/dose (Advair Diskus) 1 inh inhalation BID 30 days gabapentin 1,600 mg (2 x 800 mg) PO DAILY propranolol ER 60 mg PO DAILY 90 days rosuvastatin 10 mg PO DAILY sertraline 25 mg PO DAILY 90 days Ventolin HFA 90 mcg/actuation (albuterol sulfate) 2 puffs inhalation Q6H PRN 30 days NS Tobacco use date assessed: 10/14/22 Dental Screening Dental Screen Date: 02/14/23 Did you have a dental visit in the last 12 months?: Yes Did you have a dental problem in the last 6 months where you did not have access to dental care?: No Was dental information given to patient?: Patient has dentist HPI HPI Comments History of Present Illness Details This is a 52-year-old male with hypertension, mixed hyperlipidemia, GERD and mild recurrent major depression that comes today for follow-up on his conditions. Blood pressure stable. Lipid panel was ordered. GERD stable with medications. Depression also stable with SSRIs. Denies any chest pain or shortness of breath. No fever or cough. Has intentionally lost weight. [facility] Medical History Immff-ie-txzjhnu kidney injury Anxiety Atrial septal aneurysm Benign essential hypertension Essential hypertension GERD (gastroesophageal reflux disease) Headache Hyperostosis Mild recurrent major depression Mixed hyperlipidemia Moderate asthma Severe depression Tachycardia Surgical History History of hernia surgery Family History Father Seizures Mother No problems noted. Social History Housing: Other Housing Other:: townhouse Alcohol intake: never Patient Tobacco Use Status: Former Tobacco user e-Cigarette/Vaping Use: Never Used Second Hand Smoke Exposure: No service: No Current occupational status: disabled Cognitive needs: No Hearing needs: No Vision needs: Yes Questionnaire Thrive Questionnaire Date Thrive assessed: 10/14/22 KHRIS-7 AMB Questionnaire KHRIS-7 Date KHRIS - 7 assessed: 10/14/22 Source: Developed by Drs. Genaro Vásquez, Cindy Chávez, Remington Colvin and colleagues, with an educational kalli from [employer]. Review of Systems Const All systems reviewed & are unremarkable except as noted in HPI and below Eyes Reports no additional complaints, Denies change in vision and Denies other visual disturbances Card Denies chest pain at rest, Denies chest pain with activity, Denies edema, Denies irregular heart rhythm, Denies claudication, Denies dyspnea, Denies dyspnea on exertion, Denies orthopnea, Denies paroxysmal nocturnal dyspnea and Denies slow heart rate Resp Denies cough, Denies dyspnea and Denies dyspnea on exertion GI Denies abdominal pain, Denies change in bowel habits, Denies excessive flatus, Denies nausea and Denies vomiting Denies urinary hesitancy, Denies urinary incontinence and Denies urinary urgency Musc Denies abnormal gait, Denies atrophy, Denies deformity and Denies limited range of motion Skin/Breast Denies bleeding lesions, Denies changing lesions and Denies rash Neuro Denies abnormal gait and Denies lack of coordination Physical exam (Primary Care) Vital Signs: Last Vital Signs Pulse 82 02/14/23 15:03 BP 130/90 H 02/14/23 15:03 Pulse Ox 98 02/14/23 15:03 Oxygen Delivery Method Room Air 02/14/23 15:03 BMI result Body Mass Index 21.4 Tobacco/Smoking Status: Tobacco use Status Tobacco use date assessed 10/14/22 02/14/23 15:05 Patient Tobacco Use Status Former Tobacco user 02/14/23 15:05 e-Cigarette/Vaping Use Never Used 02/14/23 15:05 Thrive Assessment: Date of Thrive Assessment Date Thrive assessed 10/14/22 02/14/23 15:05 Eyes General: appearance normal, both eyes and all related structures Eyelids: Yes eyelids normal Conjunctivae: conjunctivae normal Neck Neck: Yes normal visual inspection and Yes supple Resp Effort & Inspection: normal respiratory effort Auscultation: clear to auscultation bilaterally Cardio Jugular venous distension: no JVD Rate: regular rate Rhythm: regular rhythm Heart sounds: S1 normal heart sound present and S2 normal heart sound present Extrem General: Yes full ROM Assessment and Plan Assessment & Plan (1) Mild recurrent major depression: Code(s): F33.0 - Major depressive disorder, recurrent, mild Plan: Continue SSRIs (2) GERD (gastroesophageal reflux disease): Code(s): K21.9 - Gastro-esophageal reflux disease without esophagitis Qualifiers: Esophagitis presence: without esophagitis Qualified Code(s): K21.9 - Gastro-esophageal reflux disease without esophagitis Plan: Continue famotidine (3) Mixed hyperlipidemia: Code(s): E78.2 - Mixed hyperlipidemia Plan: Continue statins (4) Essential hypertension: Code(s): I10 - Essential (primary) hypertension Plan: Continue clonidine. Blood pressure goal is equal or less than 130/80. Orders: Orders Comprehensive [place]. Panel Fast Today I10 - Essential (primary) hypertension Lipid Panel Today E78.5 - Hyperlipidemia, unspecified Vitamin D 25-OH Total Today E55.9 - Vitamin D deficiency, unspecified Complete Blood Count Auto Diff Today R51.9 - Headache, unspecified Medications: New scopolamine base 1 patch transdermal Q3D 7 days PRN 4 ea 0RF nausea and vomiting Coding Level of Care Code Est Pt Level 4 (10828) Diagnoses Mild recurrent major depression F33.0 GERD (gastroesophageal reflux disease) K21.9 Esophagitis presence: without esophagitis Mixed hyperlipidemia E78.2 Essential hypertension I10 Time Spent (min) 22
== END 2023-02-14 15:22 | disposition home or self-care (01) ==
PROVIDERS: Visit Provider Internal Medicine
DX: F33.0 Major depressive disorder, recurrent, mild (principal); K21.9 Gastro-esophageal reflux disease without esophagitis; E78.2 Mixed hyperlipidemia; I10 Essential (primary) hypertension
CPT/HCPCS: 99214

== ENCOUNTER 2023-04-17 03:33 | Emergency (ER) | payer OTHER, SELFPAY ==
[2023-04-17] VITALS (9 sets, daily range): BP systolic 139–181; BP diastolic 84–114; PULSE 65–92; RESP 14–24; TEMP 36.5–37.2; O2SAT 95–99; BMI 20.8
--- NOTE | ~2023-04-17 | XR_ITS ---
EXAMINATION: XR CHEST CLINICAL INFORMATION: Dyspnea COMPARISON: 05/30/2020 TECHNIQUE: 2 views of the chest were obtained. FINDINGS: No significant abnormality is noted involving the heart, lungs, mediastinum, bony thorax or soft tissues. XR/XR chest 2V IMPRESSION: Unremarkable examination.
[2023-04-17 04:17] LABS: MANUAL DIFF FLAG NO
[2023-04-17 04:19] LABS: Basophils Absolute Auto 0.1 X10*3/uL (0.0-0.2); Basophils Percent Auto 0.4 % (0-2); Eosinophils Absolute Auto 1.1 X10*3/uL (0.0-0.4); Eosinophils Percent Auto 9.6 % (0-4); Hemoglobin 13.5 g/dl (14.0-18.0); Imm Gran Abs Auto 0.03 X10*3/uL (0.00-0.03); Imm Gran Pct Auto 0.3 % (0.0-0.4); Lymphocytes Percent Auto 8.6 % (20-40); Mean Corpuscular HGB Conc 34.6 g/dl (31.0-36.0); Mean Corpuscular Volume 89.4 fL (80.0-98.0); Mean Platelet Volume 11.9 fL (9.4-12.4); Monocytes Absolute Auto 0.8 X10*3/uL (0.1-1.2); Monocytes Percent Auto 6.9 % (2-11); Neutrophils Absolute Auto 8.2 x10*3/uL (2.0-8.3); Neutrophils Percent Auto 74.2 % (45-73); Platelet Count 209 X10*3/uL (160-400); Red Blood Count 4.36 X10*6/uL (4.60-5.80); Red Cell Distribution Width 12.6 % (11.0-16.0); White Blood Count 11.1 X10*3/uL (4.8-10.8)
--- NOTE | 2023-04-17 04:19 | ECG_ITS ---
Test Reason : SOB Blood Pressure : / mmHG Vent. Rate : 081 BPM Atrial Rate : 081 BPM P-R Int : 148 ms QRS Dur : 078 ms QT Int : 376 ms P-R-T Axes : 053 022 083 degrees QTc Int : 436 ms Normal sinus rhythm Possible Left ventricular hypertrophy Abnormal ECG When compared with ECG of 18-AUG-2020 01:56, Moderate voltage criteria for LVH, may be normal variant is new Referred By: Generic ED Physician Electronically Signed By:AMELIA POLO MD
[2023-04-17 04:34] LABS: Alanine Aminotransferase 10 U/L (0-40); Albumin Level 4.4 g/dL (3.5-5.0); Alkaline Phosphatase 55 U/L (39-117); Anion Gap 17 (12-20); Aspartate Amino Transferase 15 U/L (5-37); Bilirubin Total 0.8 mg/dL (0.0-1.0); Blood Urea Nitrogen 20 mg/dL (9-16); Calcium 10.2 mg/dL (8.4-10.2); Carbon Dioxide 24 mmol/L (22-29); Chloride 103 mmol/L (96-108); Creatinine Clr Calc Pharmacy 47.9; Estimated Glomerular Filt Rate 44; Glucose Random 132 mg/dL (60-115); Potassium 4.3 mmol/L (3.3-5.1); Sodium 140 mmol/L (135-145); Total Protein 7.9 g/dL (6.5-8.0)
[2023-04-17 04:40] LABS: COVID-19 Test Negative (Negative); IDNOW Serial# 08D9AD1C
[2023-04-17 04:41] LABS: IDNOW Serial# BCCEAD1C; Influenza A Negative (Negative); Influenza B2 Negative (Negative)
--- NOTE | 2023-04-17 07:21 | PC.NURSE ---
provider at bedside and seen pt wating orders. pt sat 97% with nonprod cough. pt states he has a sore throat 3/. hr 78 with sat 97% on room air. needs at bedside.
--- NOTE | 2023-04-17 07:32 | ED_ITS ---
HPI - SOB/Dyspnea General Chief Complaint: Dyspnea Stated Complaint: asthma diff breathing Time Seen by Provider: 04/17/23 06:40 Source: patient Mode of arrival: ambulatory Limitations: no limitations History of Present Illness HPI Narrative: This is a 52-year-old male history of dermatitis, acute on chronic kidney injury, hypertension, anxiety, depression, GERD, hyperlipidemia presenting to the emergency department with complaints of shortness of breath & intermittent productive cough for the past few days with associated fatigue, malaise, throat discomfort, patient reports he has been wheezing a lot, this feels like his typical asthma attack however he feels like he may be getting sick. He has been using his nebulizer at home with little to no relief. No known sick contacts. Denies chest pain, fevers, chills, nausea, vomiting, abdominal pain, headache, vision changes, dizziness and weakness. Related Data Previous Rx's Medication Instructions Recorded gabapentin 800 mg tablet 1,600 mg (2 x 800 mg) PO DAILY 07/13/21 #180 tabs rosuvastatin 10 mg tablet 10 mg PO DAILY #90 tabs 07/13/21 betamethasone dipropionate 0.05 % 1 appl topical BID PRN skin 06/17/22 topical cream irritation #45 grams propranolol 60 mg capsule,24 60 mg PO DAILY 90 days #90 caps 10/04/22 hr,extended release Ventolin HFA 90 mcg/actuation 2 puff inhalation Q6H PRN 10/14/22 aerosol inhaler (albuterol sulfate) shortness of breath or wheezing 30 days #8 grams fluticasone 100 mcg-salmeterol 50 1 inh inhalation BID 30 days #60 ea 10/14/22 mcg/dose blistr powdr for inhalation (Advair Diskus) sertraline 25 mg tablet 25 mg PO DAILY 90 days #90 tabs 10/14/22 famotidine 40 mg tablet 40 mg PO BID #180 tabs 01/21/23 scopolamine base 1 mg over 3 days 1 patch transdermal Q3D PRN nausea 02/14/23 transdermal patch and vomiting 7 days #4 ea clonidine HCl 0.3 mg tablet 0.3 mg PO TID 90 days #270 tabs 04/04/23 albuterol sulfate 2.5 mg/3 mL 2.5 mg (3 mL) inhalation Q6H #75 mL 04/17/23 (0.083 %) solution for nebulization albuterol sulfate 90 mcg/actuation 2 inh inhalation Q4-6H PRN 04/17/23 breath activated powder inhaler shortness of breath or wheezing #1 ea doxycycline hyclate 100 mg capsule 100 mg PO BID 10 days #20 caps 04/17/23 prednisone 20 mg tablet 40 mg (2 x 20 mg) PO DAILY 5 days 04/17/23 #10 tabs Allergies Allergy/AdvReac Type Severity Reaction Status Date / Time sumatriptan Allergy Mild headaches Verified 02/14/23 15:14 nifedipine AdvReac Intermediate anxious Verified 02/14/23 15:14 lisinopril AdvReac Mild Anxiety Verified 02/14/23 15:14 Review of Systems 2 Review of Systems: Constitutional : No Weight loss, No Fever, No Chills, No Fatigue, No Malaise ENT/Mouth : No sore throat, No Rhinorrhea Eyes: No Eye Pain, No Swelling, No Redness Cardiovascular : No Chest Pain, + SOB, No Dyspnea on Exertion, No Orthopnea, No Edema, No Palpitations Respiratory : + Cough, + Sputum, + Wheezing Gastrointestinal : No Nausea, No Vomiting, No Diarrhea, No Constipation, No abdominal Pain, No Hematochezia, No Melena Genitourinary : No Dysuria, No Urinary Frequency, No Hematuria, Musculoskeletal : No joint pain, No Myalgias, No Joint Swelling Skin : No Skin Lesions, No rash Neuro : No Weakness, No Numbness, No Dizziness, No Headache Psych : No Anxiety/Panic, No Depression All other systems reviewed and are negative Yes all other systems are reviewed and are negative PMFSH Past Medical History Attestation statement: The following information was validated with the patient. Source: old records reviewed Medical History [id number] kidney injury Anxiety Atrial septal aneurysm Benign essential hypertension Essential hypertension GERD (gastroesophageal reflux disease) Headache Hyperostosis Mild recurrent major depression Mixed hyperlipidemia Moderate asthma Severe depression Tachycardia Surgical History History of hernia surgery Family History Family History Father Seizures Mother No problems noted. Social History Social History Housing: Other Housing Other:: [facility] Alcohol intake: never Patient Tobacco Use Status: Former Tobacco user Smoked in Last 30 Days: No e-Cigarette/Vaping Use: Never Used Second Hand Smoke Exposure: No Use of substances other than those prescribed or required for medical reasons: No Advance Directives: No Advance Directives Information Provided: Yes service: No Current occupational status: disabled Cognitive needs: No Hearing needs: No Vision needs: Yes Physical Exam 2 Vital Signs: Vital Signs: Last Vital Signs Temp 97.7 F 04/17/23 06:14 Pulse 75 04/17/23 12:25 Resp 18 04/17/23 12:25 BP 148/91 H 04/17/23 12:25 Pulse Ox 95 04/17/23 12:25 O2 Del Method Room Air 04/17/23 12:25 BMI result Body Mass Index 20.8 Patient is noted to be hypertensive. Has not taken home meds. Appearance: Alert.? Oriented X3.? No acute distress.? Head: Normocephalic, atraumatic, no step-offs or deformities Eyes: Pupils equal, round and reactive to light.? ENT: Pharynx normal.? Neck: Normal inspection.? Neck supple.? CVS: Normal heart rate and rhythm.? Pulses normal.? Respiratory: No respiratory distress.? Breath sounds with expiratory wheezing throughout..? Abdomen: Soft and nontender.? Skin: Skin warm and dry.? Normal skin color.? Normal skin turgor.? Extremities: No lower extremity edema.? No calf ttp. 5/5 strength to bilateral upper and lower extremities Neuro: Oriented X 3.? No motor deficit.? No sensory deficit. CN 2-12 intact Course Reevaluation(s) Reevaluation #1: The appears to have slighty elevated leukocytosis, without left shift, this could be secondary to viral illness, I do not suspect bacterial in nature. Chemistry with acute on chronic kidney injury, no acute findings. Troponin negative. No signs of fluid overload on exam, only noted to have wheezing no crackles no need for BNP unlikely CHF. COVID, influenza negative. Strep negative. Patient's chest x-ray unremarkable. Patient feeling better after a few treatments, magnesium and Solu-Medrol. Will obtain ambulatory O2 Time: 11:26 Reevaluation #2: ambulatory O2 95% feeling much better will dc home at this time. No tachypnea or tachycardia, this is reassuring that unlikely it is PE. Patient without significant risk factors. No chest pain unlikely dissection. Time of discharge denies chest pain and shortness of breath. Educated patient on diagnosis and treatment plan, answered all question, patient verbalizes understanding. At this time patient will be discharged home, advised to return with new or worsening symptoms. Educated on worrisome signs and symptoms and when to return. At this time I feel comfortable discharge home. Time: 12:25 Medications Administered Discontinued Medications Generic Name Dose Route Start Last Admin Trade Name Freq PRN Reason Stop Dose Admin Albuterol Sulfate 2.5 mg/ 5 mg 04/17/23 08:34 04/17/23 08:41 Albuterol Sulfate 2.5 mg INHALE 04/17/23 08:35 5 mg ONCE ONE Administration Albuterol Sulfate 2.5 mg/ 5 mg 04/17/23 09:34 04/17/23 09:38 Albuterol Sulfate 2.5 mg INHALE 04/17/23 09:35 5 mg ONCE ONE Administration Clonidine HCl 0.3 mg 04/17/23 08:20 04/17/23 08:46 Clonidine Hcl 0.1 Mg Tablet PO 04/17/23 08:21 0.3 mg ONCE ONE Administration Protocol Magnesium Sulfate 2 gm in 50 mls @ 25 mls/hr 04/17/23 07:30 04/17/23 08:27 Magnesium Sulfate/H2o IV 04/17/23 09:29 Infused ONCE ONE Infusion Sodium Chloride 1,000 mls @ 999 mls/hr 04/17/23 09:15 04/17/23 10:44 Ns IV 04/17/23 10:15 Infused .Q1H1M JOSE D Infusion Methylprednisolone Sodium Succinate 125 mg 04/17/23 07:30 04/17/23 07:49 Methylprednisolone Sod Succ 125 Mg/2 Ml Vial IVPUSH 04/17/23 07:31 125 mg ONCE ONE Administration Medical Decision Making Medical Decision Making MDM Narrative: 52-year-old male presents with shortness of breath and wheezing for the past few days also reports productive cough. Using treatments at home with little to no relief. On exam there is expiratory wheezing throughout all lung szymanski. Concerns for acute asthma exacerbation with possible superimposed viral illness vs bronchitis . Will rule out strep pharyngitis. No signs of threat to airway, peritonsillar or retropharyngeal abscess, unlikely epiglottitis. Based off patient physical exam and history unlikely that this is pulmonary embolism, ACS, dissection. I do not suspect pneumonia. Patient's blood pressure elevated likely secondary to non med compliance/not taking his medications this morning, will give his home dose of clonidine 0.3 mg he takes this p.o. t.i.d.. Saturating well on room air will start a bronch protocol Plan at this time labs, imaging, viral test, strep test. Differential Diagnosis Differential Diagnoses: The differential diagnosis associated with the presentation includes Concerns for acute asthma exacerbation with possible superimposed viral illness vs bronchitis . Will rule out strep pharyngitis. No signs of threat to airway, peritonsillar or retropharyngeal abscess, unlikely epiglottitis. Based off patient physical exam and history unlikely that this is pulmonary embolism, ACS, dissection. I do not suspect pneumonia. Patient's blood pressure elevated likely secondary to non med compliance/not taking his medications this morning, will give his home dose of clonidine 0.3 mg he takes this p.o. t.i.d.. Saturating well on room air will start a bronch protocol Admission/Observation Consideration of admission/observation: Escalation of care including admission/observation considered Possible Lab Data MDM Lab Attestation statement: I reviewed the patient's lab results. 04/17/23 04:10 04/17/23 04:10 Labs: Lab Results 04/17/23 04/17/23 Range/Units 04:10 08:52 WBC 11.1 H (4.8-10.8) X10*3/uL RBC 4.36 L (4.60-5.80) X10*6/uL Hgb 13.5 L (14.0-18.0) g/dl Hct 39.0 L (42.0-52.0) % MCV 89.4 (80.0-98.0) fL MCH 31.0 (27.0-33.0) pg MCHC 34.6 (31.0-36.0) g/dl RDW 12.6 (11.0-16.0) % Plt Count 209 (160-400) X10*3/uL MPV 11.9 (9.4-12.4) fL Immature Gran % (Auto) 0.3 (0.0-0.4) % Neut % (Auto) 74.2 H (45-73) % Lymph % (Auto) 8.6 L (20-40) % [place] % (Auto) 6.9 (2-11) % Eos % (Auto) 9.6 H (0-4) % Baso % (Auto) 0.4 (0-2) % Lymph # (Auto) 1.0 L (1.2-4.9) X10*3/uL [place] # (Auto) 0.8 (0.1-1.2) X10*3/uL Eos # (Auto) 1.1 H (0.0-0.4) X10*3/uL Baso # (Auto) 0.1 (0.0-0.2) X10*3/uL Abs Immat Gran (auto) 0.03 (0.00-0.03) X10*3/uL Absolute Neuts (auto) 8.2 (2.0-8.3) x10*3/uL Absolute Nucleated RBC 0.000 (0.0-0.012) X10*3/uL Nucleated RBC % (auto) 0.0 (0.0-0.2) /100WBC Sodium 140 (135-145) mmol/L Potassium 4.3 (3.3-5.1) mmol/L Chloride 103 (96-108) mmol/L Carbon Dioxide 24 (22-29) mmol/L Anion Gap 17 (12-20) BUN 20 H (9-16) mg/dL Creatinine 1.64 H (0.5-1.4) mg/dL Estim Creat Clear Calc 47.9 Estimated GFR 44 Random Glucose 132 H (60-115) mg/dL Calcium 10.2 (8.4-10.2) mg/dL Total Bilirubin 0.8 (0.0-1.0) mg/dL AST 15 (5-37) U/L ALT 10 (0-40) U/L Alkaline Phosphatase 55 (39-117) U/L Troponin I High Sens < 2.7 (<3.5-35.0) ng/L Total Protein 7.9 (6.5-8.0) g/dL Albumin 4.4 (3.5-5.0) g/dL COVID-19 (MARLO) Negative (Negative) COVID-19 Clin Com See Note Influenza Type A (HARJEET) Negative (Negative) Influenza Type B (HARJEET) Negative (Negative) Influenza A & B Note See Note S. pyogenes GrpA HARJEET Negative (Negative) Independent Interpretation I performed an independent interpretation of an: EKG (Ventricular rate of 81, [place] normal, QRS normal, QT/QTC normal. EKG normal sinus rhythm no ST elevations or inversions concerning for acute ischemia) and Plain X-Ray ( XR/XR chest 2V IMPRESSION: Unremarkable examination.) Radiology Impression Discussion of test interpretation with radiology: I have reviewed the radiologist's reading. External Record Review External record reviewed: Inpatient record, Office record, Outpatient record, Prior outpatient labs, Prior outpatient radiology, Primary care record and Outside ED record Prescription Management I considered prescription management with: Other (Prednisone, albuterol.) Chronic Conditions Patient?s care impacted by: Hypertension Critical Care Time Critical Care Time Critical Care Time: No Discharge Plan Discharge Clinical Impression: Asthma with exacerbation, Bronchitis Patient Disposition: Home, Self-Care Instructions: Asthma (ED), Viral Syndrome (ED) Additional Instructions: Take your medications as prescribed. If you were prescribed antibiotics today, it is important that you take your medication to their entirety, do not skip any doses, do not finish them early. Follow-up with your primary care provider this week. Return to the emergency department with new or worsening symptoms. Such as fevers, chills, chest pain, shortness of breath, nausea, vomiting, dizziness, headache, vision changes, lethargy In case of emergency call 911 XR/XR chest 2V IMPRESSION: Unremarkable examination. Prescriptions: New albuterol sulfate 90 mcg/actuation aerosol powdr breath activated 2 inh inhalation Q4-6H PRN (Reason: shortness of breath or wheezing) Qty: 1 0RF albuterol sulfate 2.5 mg /3 mL (0.083 %) solution for nebulization 2.5 mg inhalation Q6H Qty: 75 0RF prednisone 20 mg tablet 40 mg PO DAILY 5 Days Qty: 10 0RF doxycycline hyclate 100 mg capsule 100 mg PO BID 10 Days Qty: 20 0RF No Action propranolol 60 mg capsule,extended release 24 hr 60 mg PO DAILY 90 Days Qty: 90 1RF famotidine 40 mg tablet 40 mg PO BID Qty: 180 2RF clonidine HCl 0.3 mg tablet 0.3 mg PO TID 90 Days Qty: 270 2RF rosuvastatin 10 mg tablet 10 mg PO DAILY Qty: 90 3RF gabapentin 800 mg tablet 1,600 mg PO DAILY Qty: 180 2RF betamethasone dipropionate 0.05 % cream 1 appl topical BID PRN (Reason: skin irritation) Qty: 45 2RF fluticasone propion-salmeterol [Advair Diskus] 100-50 mcg/dose blister with device 1 inh inhalation BID 30 Days Qty: 60 6RF albuterol sulfate [Ventolin HFA] 90 mcg/actuation HFA aerosol inhaler 2 puff inhalation Q6H PRN (Reason: shortness of breath or wheezing) 30 Days Qty: 8 2RF sertraline 25 mg tablet 25 mg PO DAILY 90 Days Qty: 90 1RF scopolamine base 1 mg over 3 days patch 3 day 1 patch transdermal Q3D PRN (Reason: nausea and vomiting) 7 Days Qty: 4 0RF Referrals: Greta Ribeiro MD [Primary Care Provider] - 2 days
[2023-04-17] MEDS: methylPREDNISolone Sod Succ 125 MG/2 ML VIAL IVPUSH (07:49)
[2023-04-17] MEDS: Magnesium Sulfate/H2O 2 GM/50 ML PIGGYBACK IV (07:51)
--- NOTE | 2023-04-17 08:20 | PC.NURSE ---
PT REPORTS NO IMPROVEMENT AFTER MEDICATION. O2 SATS 99% ON ROOM AIR. SPEAKING IN FULL SENTENCES. NO ACUTE DISTRESS NOTED. PROVIDER NOTIFIED OF ABOVE AND OF ELEVATED BP
[2023-04-17] MEDS: Albuterol Sulfate 2.5 MG, Albuterol Sulfate (0.083%) 2.5 MG 5 MG INHALE ×2 (08:41→09:38)
[2023-04-17] MEDS: cloNIDine HCL 0.1 MG TABLET 0.3 MG PO (08:46)
--- NOTE | 2023-04-17 08:47 | PC.NURSE ---
PT COMPLETED UPDRAFT TREATMENT. MEDICATED ORDERED FOR HTN
[2023-04-17 09:03] LABS: Troponin-I High Sensitivity < 2.7 ng/L (<3.5-35.0)
[2023-04-17 09:06] LABS: IDNOW Serial# 08D9AD1C; Strep A Nucleic Acid Negative (Negative)
[2023-04-17] MEDS: 0.9 % Sodium Chloride 1,000 ML 999 ML IV (09:43)
--- NOTE | 2023-04-17 09:46 | PC.NURSE ---
pt a&ox3, vss aside from HTN at this time - clonidine administered by previous RN d/t increased BP - will reassess shortly. nsr on the monitoring analyst. pt currently completely nebulizer treatment at this time. crackoles noted in lower lungs bilaterally upon auscultation. no SOB/WOB noted at this time. pt able to speak in full, clear sentences w/o difficulty. pt c/o 3/10 chest pain only upon inspiration. pt displays w/ productive cough at this time. fluids administered per provider order. respirations even and unlabored. call mayo placed within reach.
== END 2023-04-17 13:26 | disposition home or self-care (01) ==
PROVIDERS: Physician Assistant; Emergency Provider Emergency Medicine; PCP Internal Medicine
DX: J40 Bronchitis, not specified as acute or chronic (principal); R06.02 Shortness of breath; Z11.52 Encounter for screening for COVID-19; Z20.822 Contact with and (suspected) exposure to COVID-19; Z79.899 Other long term (current) drug therapy; Z87.891 Personal history of nicotine dependence
CPT/HCPCS: 71046; 80053; 84484; 85025; 87502; 87635; 87651; 93005; 94640; 96361; 96365; 96375; 99285; J2930; J3475

== ENCOUNTER 2023-07-07 03:33 | Emergency (ER) | payer OTHER, SELFPAY ==
[2023-07-07] VITALS (8 sets, daily range): BP systolic 121–201; BP diastolic 80–137; PULSE 84–104; RESP 12–26; TEMP 36.7; O2SAT 92–99; BMI 20.7
--- NOTE | 2023-07-07 03:59 | ED.ASTHMA ---
HPI - Asthma General Chief Complaint: Asthma Stated Complaint: Asthma Time Seen by Provider: 07/07/23 03:47 Source: patient Mode of arrival: ambulatory Limitations: no limitations History of Present Illness HPI Narrative: Patient has history of asthma open CKD for hypertension, depression comes in for increased shortness of breath started coughing a lot with nasal congestion no fever or chills no chest pain or palpitation on arrival patient was saturating 92% at room air with audible wheezing Related Data Allergies Allergy/AdvReac Type Severity Reaction Status Date / Time sumatriptan Allergy Mild headaches Verified 07/07/23 03:53 nifedipine AdvReac Intermediate anxious Verified 07/07/23 03:53 lisinopril AdvReac Mild Anxiety Verified 07/07/23 03:53 Review of Systems Review of Systems: Yes all other systems are reviewed and are negative PMFSH Past Medical History Onset Date is defined in the Problem List Problems that require an onset date and time if occurred within 24 hrs of arrival to the ED Aortic Dissection and Rupture; Neurologic impairment; Cardiopulmonary Arrest; Endotracheal Intubation; Insertion or Replacement of Mechanical Circulatory Assist Device Medical History [id number] kidney injury Anxiety Atrial septal aneurysm Benign essential hypertension Essential hypertension GERD (gastroesophageal reflux disease) Headache Hyperostosis Mild recurrent major depression Mixed hyperlipidemia Moderate asthma Severe depression Tachycardia Surgical History History of hernia surgery Family History Family History Father Seizures Mother No problems noted. Social History Social History Housing: Other Housing Other:: [facility] Alcohol intake: never Patient Tobacco Use Status: Former Tobacco user Smoked in Last 30 Days: No e-Cigarette/Vaping Use: Never Used Second Hand Smoke Exposure: No Use of substances other than those prescribed or required for medical reasons: No Advance Directives: No Advance Directives Information Provided: Yes service: No Current occupational status: disabled Cognitive needs: No Hearing needs: No Vision needs: Yes Physical Exam Vital Signs: Vital Signs: Last Vital Signs Temp 98.1 F 07/07/23 03:42 Pulse 95 07/07/23 07:14 Resp 26 H 07/07/23 07:14 BP 126/82 07/07/23 07:14 Pulse Ox 94 07/07/23 07:14 O2 Del Method Room Air 07/07/23 07:14 BMI result Body Mass Index 20.7 Appearance: Alert. Oriented X3. No acute distress. Eyes: PERRLA, No Nystagmus ENT: Pharynx normal. Oral Mucosa moist Neck: Normal inspection. Neck supple. CVS: Normal heart rate and rhythm. Pulses normal. Respiratory: Moderate distress with expiratory wheezing Equal air entry bilateral, NO rales Abdomen: Soft and nontender. Bowel sounds are present, no mass palpable, no CVA tenderness Skin: Skin warm and dry. Normal skin color. Normal skin turgor. Extremities: No lower extremity edema. No calf tenderness Neuro: Oriented X 3. No motor deficit. No sensory deficit.No cerebellar signs , cranial nerves II-XII intact Medications Administered Discontinued Medications Generic Name Dose Route Start Last Admin Trade Name Freq PRN Reason Stop Dose Admin Albuterol Sulfate 5 mg/ 7.5 mg 07/07/23 04:31 07/07/23 04:33 Albuterol Sulfate 2.5 mg INHALE 07/07/23 04:32 7.5 mg ONCE ONE Administration Albuterol Sulfate 7.5 mg 07/07/23 05:25 07/07/23 05:36 Albuterol Sulfate (0.083%) 2.5 Mg/3 Ml Vial.Neb INHALE 07/07/23 05:26 7.5 mg ONCE ONE Administration Clonidine HCl 0.3 mg 07/07/23 03:55 07/07/23 04:09 Clonidine Hcl 0.1 Mg Tablet PO 07/07/23 03:56 0.3 mg ONCE ONE Administration Protocol Albuterol Sulfate 7.5 mg/ 0 mg 07/07/23 03:54 07/07/23 04:10 Albuterol/Ipratropium 3 ml INHALE 07/07/23 03:55 2.5 each ONCE ONE Administration Magnesium Sulfate 2 gm in 50 mls @ 150 mls/hr 07/07/23 03:48 07/07/23 05:39 Magnesium Sulfate/H2o IV 07/07/23 04:07 Infused ONCE ONE Infusion Methylprednisolone Sodium Succinate 125 mg 07/07/23 03:48 07/07/23 04:00 Methylprednisolone Sod Succ 125 Mg/2 Ml Vial IVPUSH 07/07/23 03:49 125 mg ONCE ONE Administration Medical Decision Making Medical Decision Making [facility] Narrative: Patient has severe asthma status asthmaticus received multiple nebulizing treatment , steroid, IV magnesium still wheezing desaturating to 90% will admit patient for further management Differential Diagnosis Differential Diagnoses: The differential diagnosis associated with the presentation includes Asthma/pneumonia/pneumothorax Admission/Observation Consideration of admission/observation: Escalation of care including admission/observation considered Consult Healthcare Provider Management of the patient was discussed with: Hospitalist Lab Data [facility] Lab Attestation statement: I reviewed the patient's lab results. 07/07/23 04:06 07/07/23 04:06 Labs: Lab Results 07/07/23 07/07/23 Range/Units 04:06 05:30 WBC 12.8 H (4.8-10.8) X10*3/uL RBC 4.57 L (4.60-5.80) X10*6/uL Hgb 14.1 (14.0-18.0) g/dl Hct 40.7 L (42.0-52.0) % MCV 89.1 (80.0-98.0) fL MCH 30.9 (27.0-33.0) pg MCHC 34.6 (31.0-36.0) g/dl RDW 12.7 (11.0-16.0) % Plt Count 161 (160-400) X10*3/uL MPV 12.1 (9.4-12.4) fL Immature Gran % (Auto) 0.4 (0.0-0.4) % Neut % (Auto) 71.8 (45-73) % Lymph % (Auto) 9.1 L (20-40) % [place] % (Auto) 6.2 (2-11) % Eos % (Auto) 12.0 H (0-4) % Baso % (Auto) 0.5 (0-2) % Lymph # (Auto) 1.2 (1.2-4.9) X10*3/uL [place] # (Auto) 0.8 (0.1-1.2) X10*3/uL Eos # (Auto) 1.5 H (0.0-0.4) X10*3/uL Baso # (Auto) 0.1 (0.0-0.2) X10*3/uL Abs Immat Gran (auto) 0.05 H (0.00-0.03) X10*3/uL Absolute Neuts (auto) 9.2 H (2.0-8.3) x10*3/uL Absolute Nucleated RBC 0.000 (0.0-0.012) X10*3/uL Nucleated RBC % (auto) 0.0 (0.0-0.2) /100WBC Sodium 140 (135-145) mmol/L Potassium 4.2 (3.3-5.1) mmol/L Chloride 101 (96-108) mmol/L Carbon Dioxide 25 (22-29) mmol/L Anion Gap 18 (12-20) BUN 18 H (9-16) mg/dL Creatinine 1.66 H (0.5-1.4) mg/dL Estim Creat Clear Calc 46.6 Estimated GFR 43 Random Glucose 129 H (60-115) mg/dL Calcium 10.0 (8.4-10.2) mg/dL Influenza Type A (PCR) NEGATIVE (Negative) Influenza Type B (PCR) NEGATIVE (Negative) RSV RNA Qual (PCR) NEGATIVE (Negative) SARS-CoV-2 RNA (RT-PCR) NEGATIVE (Negative) Independent Interpretation I performed an independent interpretation of an: Plain X-Ray Radiology Impression Discussion of test interpretation with radiology: I have reviewed the radiologist's reading. Discharge Plan Discharge Clinical Impression: Asthma with status asthmaticus Patient Disposition: Admitted As Inpatient
--- NOTE | 2023-07-07 04:10 | PC.NURSE ---
Pt presented to ED, for asthma exacerbation. Pt reports using home nebulizer and rescue inhaler with minimal to know relief. Pt lung sounds tight with inspiratory and expiratory wheezing throughout. RR 18-20, O2 saturation 98% room air. Pt very anxious, saying please don't let me . Sense of impending doom. BP elevated 201/137, pt reports he takes catapres and missed his last dose he was supposed to take. iv placed, respiratory called to room MD at bedside. Labs sent and meds administered per SEP.
--- NOTE | 2023-07-07 05:37 | PC.NURSE ---
BP improve, pt reports feeling a bit better. Lung sounds improved but still has wheezing throughout. RT in room giving a treatment. This RN collect RPP and sent to lab, cxr ordered.
--- NOTE | 2023-07-07 07:15 | PC.NURSE ---
patient a&ox3, vss, residential monitor [id number], pt has in/ex wheezing and diminished throughout, per dr elizondo pt ok to eat breakfast. 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 pt is attempting to make some calls. will continue to monitor
--- NOTE | 2023-07-07 08:10 | PM.EVENT ---
Event Note Date of Service: 07/07/23 Event Note: Patient examined in the ER. 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 He was unaware that we he was being admitted. Discussed with ER; given the fact his sats are acceptable and he understands the risk I am comfortable with the ER discharge him on the following; azithromycin 500 mg daily for 5 days; prednisone taper 10 mg number 45.... 5 x 3 4 x 3 3 x 3 2 x 3 1 x 3; and also will be sent on a Comp[employer] Particle Acceleration q.i.d. p.r.n.. Has home nebulizer. 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 Time Spent With Patient Time: Total time managing care of this patient today ____ minutes.
--- NOTE | 2023-07-07 08:11 | HE.PHANOTE ---
RE: med rec Started speaking to patient about home medications but Dr. Arreola alerted me that he would be discharged.
== END 2023-07-07 09:00 | disposition home or self-care (01) ==
PROVIDERS: Emergency Provider Internal Medicine
DX: J45.52 Severe persistent asthma with status asthmaticus (principal); R06.02 Shortness of breath; Z20.822 Contact with and (suspected) exposure to COVID-19; Z20.828 Contact with and (suspected) exposure to other viral communicable diseases; I10 Essential (primary) hypertension; E78.5 Hyperlipidemia, unspecified; Z87.891 Personal history of nicotine dependence
CPT/HCPCS: 0241U; 36415; 71045; 80048; 85025; 94640; 96365; 96366; 96375; 96376; 99285; J2930; J3475

== ENCOUNTER 2023-07-18 15:08 | Outpatient (AMB) | payer OTHER, SELFPAY ==
--- NOTE | 2023-07-18 15:12 | A.OFFPC_ITS ---
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 Accompanied by: Self / Same As Patient Allergies sumatriptan Allergy (Mild, Verified 07/18/23 15:29) headaches nifedipine Adverse Reaction (Intermediate, Verified 07/18/23 15:29) anxious lisinopril Adverse Reaction (Mild, Verified 07/18/23 15:29) Anxiety Medication List - Last Reconciled 07/18/23 by Greta Olivera MD clonidine HCl 0.3 mg PO TID gabapentin 400 mg PO BEDTIME ipratropium-albuterol 0.5 mg-3 mg(2.5 mg base)/3 mL 3 mL inhalation Q6-8H PRN prednisone 10 mg PO DIRECTED propranolol 60 mg PO DAILY Tobacco use date assessed: 07/18/23 Dental Screening Dental Screen Date: 07/18/23 Did you have a dental visit in the last 12 months?: No Did you have a dental problem in the last 6 months where you did not have access to dental care?: No Was dental information given to patient?: Patient has dentist HPI HPI Comments History of Present Illness Details This is a 53-year-old male with essential hypertension, chronic kidney disease stage 3, moderate major depression and moderate asthma that comes today as a hospital discharge follow-up with discharge date 07/07/2023 due to asthma exacerbation and upper respiratory infection which is still present but have improved. Was negative for COVID, RSV and flu. Chest x-ray was normal. White blood cells were elevated most likely due to prednisone which he is still on it. I will add a Z-Rayray. Blood pressure elevated and he has been taking his clonidine. I will start him on losartan. Blood pressure will be recheck in 3 weeks by nurse navigator. Moderate major depression still present and I will start him on sertraline. [facility] Medical History (Updated 07/18/23 @ 16:02 by Greta Olivera MD) Mild recurrent major depression Atrial septal aneurysm [id number] kidney injury Anxiety Benign essential hypertension Tachycardia GERD (gastroesophageal reflux disease) Headache Hyperostosis Severe depression Moderate asthma Essential hypertension Mixed hyperlipidemia Surgical History History of hernia surgery Family History Father Seizures Mother No problems noted. Social History Housing: Other Housing Other:: [facility] Alcohol intake: never Patient Tobacco Use Status: Former Tobacco user e-Cigarette/Vaping Use: Never Used Second Hand Smoke Exposure: No service: No Current occupational status: disabled Cognitive needs: No Hearing needs: No Vision needs: Yes Questionnaire PHQ-9 Over the last 2 weeks, how often have you been bothered by any of the following problems? 1. Little interest or pleasure in doing things: more than half the days 2. Feeling down, depressed, or hopeless: nearly every day 3. Trouble falling or staying asleep, or sleeping too much: not at all 4. Feeling tired or having little energy: nearly every day 5. Poor appetite or overeating: more than half the days 6. Feeling bad about yourself - or that you are a failure or have let yourself or your family down: nearly every day 7. Trouble concentrating on things, such as reading the newspaper or watching television: more than half the days 8. Moving or speaking so slowly that other people could have noticed. Or the opposite - being so fidgety or restless that you have been moving around a lot more than usual: more than half the days 9. Thoughts that you would be better off or of hurting yourself in some way: not at all Total score: 17 Depression Screening Interpretation: Positive (no suicidal thoughts) Depression Screening Follow-up: Existing condition Depression Screening Done: Yes 57581 - PHQ-9 Billing: Yes Source: Developed by Drs. Genaro Vásquez, Cindy Chávez, Remington Colvin and colleagues, with an educational kalli from [employer]. Thrive Questionnaire Date Thrive assessed: 07/18/23 I am a: Patient What is your living situation today?: I have a steady place to live Within the past 12 months, did the food you bought not last and you didn't have the money to get more?: Never true Within the past 12 months, did you worry whether your food would run out before you got money to buy more?: Never true Do you have trouble paying for medicines?: No Do you have trouble getting transportation to medical appointments?: No Do you have trouble paying your heating and electricity bill?: No Do you have trouble taking care of your child, family member or friend?: No Do you have trouble with day-to-day activities such as bathing, preparing meals, shopping, managing finances, etc.?: No Are you currently unemployed and looking for a job?: No Are you interested in more education?: No Please select the resources that you would like help with: None AUDIT C Alcohol Use Questionnaire (AUDIT-C) 1. How often do you have a drink containing alcohol?: Never Total Score: 0 KHRIS-7 AMB Questionnaire KHRIS-7 Date KHRIS - 7 assessed: 07/18/23 Feeling nervous, anxious, or on edge: 2 = More than half the days Not being able to stop or control worryin = Several days Worrying too much about different things: 2 = More than half the days Trouble relaxin = Several days Being so restless that it is hard to sit still: 0 = Not at all Becoming easily annoyed or irritable: 1 = Several days Feeling afraid as if something awful might happen: 0 = Not at all Total KHRIS-7 score (0-4 normal; 5-9 mild; 10-14 moderate; 15-21 severe): 7 Source: Developed by Drs. Genaro Vásquez, Cindy Chávez, Remington Colvin and colleagues, with an educational kalli from [employer]. KHRIS-7 Assessment Billing KHRIS-7 Assessment Tool: KHRIS-7 Assessment 82436 Review of Systems Const All systems reviewed & are unremarkable except as noted in HPI and below Eyes Reports no additional complaints, Denies change in vision and Denies other visual disturbances Card Denies chest pain at rest, Denies chest pain with activity, Denies edema, Denies irregular heart rhythm, Denies claudication, Denies dyspnea, Denies dyspnea on exertion, Denies orthopnea, Denies paroxysmal nocturnal dyspnea and Denies slow heart rate Resp Denies cough, Denies dyspnea and Denies dyspnea on exertion GI Denies abdominal pain, Denies change in bowel habits, Denies excessive flatus, Denies nausea and Denies vomiting Denies urinary hesitancy, Denies urinary incontinence and Denies urinary urgency Musc Denies abnormal gait, Denies atrophy, Denies deformity and Denies limited range of motion Skin/Breast Denies bleeding lesions, Denies changing lesions and Denies rash Neuro Denies abnormal gait and Denies lack of coordination Physical exam (Primary Care) Vital Signs: Last Vital Signs BP 180/100 H 07/18/23 15:56 BMI result Body Mass Index 21.7 Tobacco/Smoking Status: Tobacco use Status Tobacco use date assessed 07/18/23 07/18/23 15:20 Patient Tobacco Use Status Former Tobacco user 07/18/23 15:20 e-Cigarette/Vaping Use Never Used 07/18/23 15:20 PHQ-9: PHQ-9 Score PHQ-9: Total score 17 07/18/23 15:57 Depression Screening Interpretation: Positive (no suicidal thoughts) Depression Screening Follow-up: Existing condition Thrive Assessment: Date of Thrive Assessment Date Thrive assessed 07/18/23 07/18/23 15:20 Eyes General: appearance normal, both eyes and all related structures Eyelids: Yes eyelids normal Conjunctivae: conjunctivae normal Neck Neck: Yes normal visual inspection and Yes supple Resp Effort & Inspection: normal respiratory effort Auscultation: clear to auscultation bilaterally Cardio Jugular venous distension: no JVD Rate: regular rate Rhythm: regular rhythm Heart sounds: S1 normal heart sound present and S2 normal heart sound present Extrem General: Yes full ROM Office Procedures Flu Questionnaire Does the patient have a severe egg allergy?: No Immunizations flu vacc [id number] 6mos up(PF) 60 mcg(15 mcgx4)/0.5 mL IM syringe Performing Provider: Greta Olivera MD [facility] [place] Documented (not given) by: DAX Robins on 07/18/23 15:43 Reason Not Given: Patient Refused Assessment and Plan Assessment & Plan (1) Essential hypertension: Code(s): I10 - Essential (primary) hypertension Plan: Continue clonidine. Start losartan. Blood pressure goal is equal or less than 130/80. Recheck blood pressure with nurse navigator in 3 weeks. (2) Moderate asthma: Code(s): J45.909 - Unspecified asthma, uncomplicated Plan: Use rescue inhaler as needed. Complete prednisone. (3) Moderate major depression: Code(s): F32.1 - Major depressive disorder, single episode, moderate Plan: Start sertraline. (4) CKD (chronic kidney disease) stage 3, GFR 30-59 ml/min: Code(s): N18.30 - Chronic kidney disease, stage 3 unspecified Qualifiers: Chronic kidney disease stage 3 subtype: stage 3b (GFR 30-44) Qualified Code(s): N18.32 - Chronic kidney disease, stage 3b Plan: Avoid NSAIDs. Blood pressure goal is equal or less than 130/80. (5) Hospital discharge follow-up: Code(s): Z09 - Encounter for follow-up examination after completed treatment for conditions other than malignant neoplasm Plan: Discharge 07/07/2023 due to upper respiratory infection and asthma exacerbation. Still on prednisone. Chest x-ray negative. No significant lab abnormality. Patient is still coughing and shortness of breath. (6) URI (upper respiratory infection): Code(s): J06.9 - Acute upper respiratory infection, unspecified Plan: Start Zpak. Orders: Orders Lipid Panel Today E78.5 - Hyperlipidemia, unspecified Comprehensive [place]. Panel Fast Today I10 - Essential (primary) hypertension Complete Blood Count Auto Diff Today R00.2 - Palpitations Influenza [id number] Immunization Today Z23 - Encounter for immunization Medications: New azithromycin Take 2 tab the first day, then 1 tab for the next 4 days 250 mg PO DAILY 5 days 6 tabs 0RF nebulizers (VixOne Nebulizer-Adult Mask) As directed 1 ea 0RF J45.909 - Unspec ified asthma, uncomplicated losartan 25 mg PO DAILY 90 days 90 tabs 0RF I10 - Essential (primary) hypertension sertraline 25 mg PO DAILY 90 days 90 tabs 1RF F33.0 - Major depressive disorder, recurrent, mild Coding Level of Care Code TCM Mod MDM <= 14 Days Diagnoses Essential hypertension I10 Moderate asthma J45.909 Moderate major depression F32.1 Stage 3b chronic kidney disease N18.32 Chronic kidney disease stage 3 subtype: stage 3b (GFR 30-44) Hospital discharge follow-up Z09 URI (upper respiratory infection) J06.9 Additional Codes KHRIS-7 Assessment Billing - KHRIS-7 Assessment Tool: KHRIS-7 Assessment 54120 ( [id number]) Time Spent (min) 24
[2023-07-18 15:13] VITALS: BP 180/110; BMI 21.7
[2023-07-18 15:56] VITALS: BP 180/100
== END 2023-07-18 15:41 | disposition home or self-care (01) ==
PROVIDERS: PCP Internal Medicine; Visit Provider Internal Medicine
DX: I12.9 Hypertensive chronic kidney disease with stage 1 through stage 4 chronic kidney disease, or unspecified chronic kidney disease (principal); N18.32 Chronic kidney disease, stage 3b; J45.909 Unspecified asthma, uncomplicated; F32.1 Major depressive disorder, single episode, moderate; J06.9 Acute upper respiratory infection, unspecified
CPT/HCPCS: 99214

== ENCOUNTER 2023-10-17 16:01 | Inpatient (IN) | payer OTHER, SELFPAY ==
[2023-10-17] VITALS (10 sets, daily range): BP systolic 120–199; BP diastolic 87–130; PULSE 78–103; RESP 16–26; TEMP 36.8–37; O2SAT 92–98; BMI 25.1
--- NOTE | ~2023-10-17 | XR_ITS ---
EXAMINATION: XR CHEST CLINICAL INFORMATION: Shortness of breath. COMPARISON: Chest radiograph dated 07/07/2023. TECHNIQUE: 2 views of the chest were obtained. FINDINGS: The trachea is in normal anatomic position. The heart is normal in size. Both lungs are clear. No pleural effusion. No pneumothorax. No acute osseous abnormality. XR/XR chest 2V IMPRESSION: No acute cardiopulmonary disease.
--- NOTE | ~2023-10-17 | US_ITS ---
EXAMINATION: US RETROPERITONEAL LIMITED (RENAL ONLY) CLINICAL INFORMATION: Uncontrolled hypertension. COMPARISON: CT 01/28/2013 TECHNIQUE: Ultrasound along with color Doppler imaging and spectral analysis was performed of the kidneys. FINDINGS: Mid aortic velocity: 120 cm/s Aortic velocity greater than 100 cm per sec and cannot be used to calculate renal aortic ratio RIGHT KIDNEY: 8 x 4.7 x 5.2 cm (SAG x AP x TRV). The kidney is normal in size, contour, and echogenicity. Renal cortical thickness is normal. No calculi or focal parenchymal lesions. No hydronephrosis. The right renal artery is patent. Along the course of the vessel the peak systolic velocities from proximal to distal are 69 cm/s, 78 cm/s, 77 cm/s. Segmental resistive indices are within normal limits, 0.66-0.69. Renal vein is patent. LEFT KIDNEY: 9.1 x 4.6 x 4.3 cm (SAG x AP x TRV). The kidney is normal in size, contour, and echogenicity. Renal cortical thickness is normal. No renal calculi or hydronephrosis. At the upper pole of the kidney there is a 0.8 x 0.7 x 0.9 cm cyst containing internal calcification which would not require routine radiographic follow-up. There is a similar such 0.5 x 0.4 x 0.4 cm cyst at the lower pole. The left renal artery is patent. Along the course of the vessel peak systolic velocities from proximal to distal are 73 cm/s, 74 cm/s, 60 cm/s. Segmental resistive indices are within normal limits 0.61-0.64. Renal vein is patent. US/US renal doppler IMPRESSION: Overall essentially unremarkable sonographic appearance of the kidneys. Patent renal arterial and venous vasculature without evidence of renal arterial stenosis.
--- NOTE | ~2023-10-17 | US_ITS ---
EXAMINATION: US RETROPERITONEAL LIMITED (RENAL ONLY) CLINICAL INFORMATION: Uncontrolled hypertension. COMPARISON: CT 01/28/2013 TECHNIQUE: Ultrasound along with color Doppler imaging and spectral analysis was performed of the kidneys. FINDINGS: Mid aortic velocity: 120 cm/s Aortic velocity greater than 100 cm per sec and cannot be used to calculate renal aortic ratio RIGHT KIDNEY: 8 x 4.7 x 5.2 cm (SAG x AP x TRV). The kidney is normal in size, contour, and echogenicity. Renal cortical thickness is normal. No calculi or focal parenchymal lesions. No hydronephrosis. The right renal artery is patent. Along the course of the vessel the peak systolic velocities from proximal to distal are 69 cm/s, 78 cm/s, 77 cm/s. Segmental resistive indices are within normal limits, 0.66-0.69. Renal vein is patent. LEFT KIDNEY: 9.1 x 4.6 x 4.3 cm (SAG x AP x TRV). The kidney is normal in size, contour, and echogenicity. Renal cortical thickness is normal. No renal calculi or hydronephrosis. At the upper pole of the kidney there is a 0.8 x 0.7 x 0.9 cm cyst containing internal calcification which would not require routine radiographic follow-up. There is a similar such 0.5 x 0.4 x 0.4 cm cyst at the lower pole. The left renal artery is patent. Along the course of the vessel peak systolic velocities from proximal to distal are 73 cm/s, 74 cm/s, 60 cm/s. Segmental resistive indices are within normal limits 0.61-0.64. Renal vein is patent. US/US renal BI IMPRESSION: Overall essentially unremarkable sonographic appearance of the kidneys. Patent renal arterial and venous vasculature without evidence of renal arterial stenosis.
--- NOTE | 2023-10-17 16:06 | ECG_ITS ---
Test Reason : HYPERTENSION Blood Pressure : / mmHG Vent. Rate : 095 BPM Atrial Rate : 095 BPM P-R Int : 124 ms QRS Dur : 076 ms QT Int : 336 ms P-R-T Axes : 033 000 090 degrees QTc Int : 422 ms Normal sinus rhythm Left ventricular hypertrophy with repolarization abnormality ( R in aVL , Sokolow-Sarah ) Abnormal ECG When compared with ECG of 17-APR-2023 04:25, No significant change was found Referred By: Patrick Murphy Electronically Signed By:ZOEY LOPEZ
[2023-10-17] MEDS: Albuterol Sulfate 2.5 MG, Albuterol/Iprat 2.5/0.5MG 3 ML 3 ML INHALE (16:09)
--- NOTE | 2023-10-17 16:11 | ED.GENADULT ---
HPI - General Adult General Chief complaint: Dyspnea Stated complaint: RESPIRATORY DISTRESS Time Seen by Provider: 10/17/23 16:05 History of Present Illness HPI narrative: The patient is a 53-year-old male with a history of asthma and hypertension. He has no history of known heart disease. He has had worsening shortness of breath over the last couple of weeks. He went to an urgent care center 2 days ago and was diagnosed with a bronchitis and put on prednisone and azithromycin. Despite this his symptoms have worsened to the point where today he called an ambulance because he was so short of breath. He does not think he has had a fever. He has had a cough. He has a history of asthma but he has not certain that his symptoms today are similar to his previous asthma exacerbations. He has not had any chest pain. No swelling in his legs. Related Data Home Medications ?Medication ?Instructions ?Recorded ?Confirmed clonidine HCl 0.3 mg tablet 0.3 mg PO TID 07/18/23 10/17/23 famotidine 40 mg tablet 40 mg PO BID 10/17/23 10/17/23 propranolol 60 mg capsule,24 60 mg PO DAILY 10/17/23 10/17/23 hr,extended release Previous Rx's ?Medication ?Instructions ?Recorded ipratropium 0.5 mg-albuterol 3 mg 3 ml inhalation Q6-8H PRN 07/07/23 (2.5 mg base)/3 mL nebulization shortness of breath #180 mL soln nebulizers (VixOne Nebulizer-Adult #1 ea 07/18/23 Mask) losartan 25 mg tablet 25 mg PO DAILY 90 days #90 tabs 08/26/23 Ventolin HFA 90 mcg/actuation 2 puff inhalation Q6H PRN 10/11/23 aerosol inhaler (albuterol sulfate) shortness of breath or wheezing 30 days #18 grams Allergies Allergy/AdvReac Type Severity Reaction Status Date / Time sumatriptan Allergy Mild headaches Verified 10/17/23 16:28 nifedipine AdvReac Intermediate anxious Verified 07/18/23 15:29 lisinopril AdvReac Mild Anxiety Verified 07/18/23 15:29 Review of Systems Review of Systems: Yes all other systems are reviewed and are negative PMFSH Past Medical History Medical History Mild recurrent major depression Atrial septal aneurysm Woofi-[id number] kidney injury Anxiety Benign essential hypertension Tachycardia GERD (gastroesophageal reflux disease) Headache Hyperostosis Severe depression Moderate asthma Essential hypertension Mixed hyperlipidemia Surgical History History of hernia surgery Family History Family History Father Seizures Mother No problems noted. Social History Social History Housing: Other Housing Other:: [facility] Alcohol intake: never Patient Tobacco Use Status: Former Tobacco user Smoked in Last 30 Days: No e-Cigarette/Vaping Use: Never Used Second Hand Smoke Exposure: No Use of substances other than those prescribed or required for medical reasons: No Advance Directives: No Advance Directives Information Provided: No service: No Current occupational status: disabled Cognitive needs: No Hearing needs: No Vision needs: Yes Physical Exam ED Vital Signs: Vital Signs - 24 hr 10/17/23 16:09 10/17/23 16:25 10/17/23 18:12 Temperature 98.4 F 98.6 F Pulse Rate 95 85 99 Respiratory Rate 26 H 22 H 18 Blood Pressure 181/119 H 180/123 H Pulse Oximetry 96 93 Oxygen Delivery Method Room Air Room Air Oxygen Flow Rate 10/17/23 18:23 10/17/23 19:05 10/17/23 19:49 Temperature 98.2 F Pulse Rate 103 H 90 87 Respiratory Rate 20 22 H 16 Blood Pressure 182/122 H 198/128 H Pulse Oximetry 95 96 Oxygen Delivery Method Room Air Nasal Cannula Oxygen Flow Rate 2 10/17/23 20:20 Temperature Pulse Rate 88 Respiratory Rate Blood Pressure 199/108 H Pulse Oximetry 98 Oxygen Delivery Method Room Air Oxygen Flow Rate BMI result Body Mass Index 25.1 Const Other: The patient has a slight, somewhat chronically ill-appearing 53-year-old who was mildly short of breath. HENMT Other: Face is symmetrical. Mucous membranes moist. Eyes Other: Pupils are round equal, conjunctivae clear Neck Neck: Yes no JVD Resp Other: Mild tachypnea. The patient has coarse air entry bilaterally with wheezes and crackles. Cardio Rate: regular rate Rhythm: regular rhythm Heart sounds: S1 normal heart sound present and S2 normal heart sound present GI Other: Abdomen is soft and nontender Skin Other: Skin is pale and dry. Neuro Other: The patient is awake and alert. He has an anxious affect but normal mental status otherwise. Cranial nerves are grossly intact and his strength is intact in his extremities. Extrem Other: No peripheral edema, no calf swelling or tenderness, no asymmetry. Medications Administered Generic Name Dose Route Start Last Admin Trade Name Freq PRN Reason Stop Dose Admin Enoxaparin Sodium 40 mg 10/17/23 21:00 10/17/23 22:54 Enoxaparin Sodium 40 Mg/0.4 Ml Syringe SUBCUT 40 mg Q24H JOSE D Administration Gabapentin 400 mg 10/17/23 21:00 10/17/23 22:54 Gabapentin 400 Mg Capsule PO 400 mg BEDTIME JOSE D Administration Discontinued Medications Generic Name Dose Route Start Last Admin Trade Name Freq PRN Reason Stop Dose Admin Albuterol/Ipratropium 3 ml 10/17/23 18:20 10/17/23 18:22 Albuterol/Iprat 2.5/0.5mg 3 Ml Ampul.Neb INHALE 10/17/23 18:21 3 ml ONCE ONE Administration Clonidine HCl 0.1 mg 10/17/23 16:46 10/17/23 17:04 Clonidine Hcl 0.1 Mg Tablet PO 10/17/23 16:47 0.1 mg ONCE ONE Administration Protocol Clonidine HCl 0.3 mg 10/17/23 18:57 10/17/23 19:06 Clonidine Hcl 0.1 Mg Tablet PO 10/17/23 18:58 0.3 mg ONCE ONE Administration Protocol Albuterol Sulfate 2.5 mg/ 0 mg 10/17/23 16:07 10/17/23 16:09 Albuterol/Ipratropium 3 ml INHALE 10/17/23 16:08 1 dose ONCE ONE Administration Magnesium Sulfate 2 gm in 50 mls @ 150 mls/hr 10/17/23 16:45 10/17/23 17:39 Magnesium Sulfate/H2o IV 10/17/23 17:04 Infused ONCE ONE Infusion Sodium Chloride 1,000 mls @ 999 mls/hr 10/17/23 17:30 10/17/23 20:30 Ns IV 10/17/23 18:30 Infused .Q1H1M JOSE D Infusion Labetalol HCl 10 mg 10/17/23 19:59 10/17/23 20:22 Labetalol Hcl 100 Mg/20 Ml Vial IVPUSH 10/17/23 20:00 10 mg ONCE ONE Administration Lorazepam 1 mg 10/17/23 20:00 10/17/23 20:21 Lorazepam 2 Mg/Ml Vial IVPUSH 10/17/23 20:01 1 mg ONCE ONE Administration Losartan Potassium 25 mg 10/17/23 17:33 10/17/23 17:50 Losartan Potassium 25 Mg Tablet PO 10/17/23 17:34 25 mg ONCE ONE Administration Protocol Methylprednisolone Sodium Succinate 80 mg 10/17/23 16:45 10/17/23 17:04 Methylprednisolone Sod Succ 125 Mg/2 Ml Vial IVPUSH 10/17/23 16:46 80 mg ONCE ONE Administration Medical Decision Making Medical Decision Making [facility] Narrative: The patient arrived on CPAP with paramedics. He has a history of asthma. He also has a history of hypertension. He had received a DuoNeb updraft from paramedics and his respiratory status seemed to have stabilized somewhat. He did not seem to require ongoing positive pressure ventilation. He looked unwell however and continued to look somewhat short of breath and had very coarse wheezes and crackles in both lung szymanski. Additionally his blood pressures were quite high. The patient apparently normally takes losartan 25 mg daily and he says he also takes 0.3 mg of clonidine 3 times daily. The patient was given bronchodilator treatment as well as IV methylprednisolone and magnesium. He was given a dose of losartan as well as clonidine. Ultimately was also given labetalol. He continued to be quite wheezy and given his high blood pressures and his overall for clinical appearance he will be admitted to the hospitalist service for further care. Lab Data 10/17/23 16:18 10/17/23 16:18 Labs: Lab Results 10/17/23 10/17/23 Range/Units 16:18 16:22 WBC 13.7 H (4.8-10.8) X10*3/uL RBC 3.58 L D (4.60-5.80) X10*6/uL Hgb 11.0 L D (14.0-18.0) g/dl Hct 31.7 L D (42.0-52.0) % MCV 88.5 (80.0-98.0) fL MCH 30.7 (27.0-33.0) pg MCHC 34.7 (31.0-36.0) g/dl RDW 12.7 (11.0-16.0) % Plt Count 248 D (160-400) X10*3/uL MPV 11.7 (9.4-12.4) fL Immature Gran % (Auto) 0.5 H (0.0-0.4) % Neut % (Auto) 73.7 H (45-73) % Lymph % (Auto) 7.9 L (20-40) % [place] % (Auto) 6.6 (2-11) % Eos % (Auto) 10.9 H (0-4) % Baso % (Auto) 0.4 (0-2) % Lymph # (Auto) 1.1 L (1.2-4.9) X10*3/uL [place] # (Auto) 0.9 (0.1-1.2) X10*3/uL Eos # (Auto) 1.5 H (0.0-0.4) X10*3/uL Baso # (Auto) 0.1 (0.0-0.2) X10*3/uL Abs Immat Gran (auto) 0.07 H (0.00-0.03) X10*3/uL Absolute Neuts (auto) 10.1 H (2.0-8.3) x10*3/uL Absolute Nucleated RBC 0.000 (0.0-0.012) X10*3/uL Nucleated RBC % (auto) 0.0 (0.0-0.2) /100WBC VBG pH 7.50 H (7.32-7.43) VBG pCO2 34 mmHg VBG pO2 77 mmHg VBG HCO3 27 H (22-26) mmol/L VBG O2 Saturation 98.0 % VBG Base Excess 4.0 mmol/L Sodium 140 (135-145) mmol/L Potassium 3.9 (3.3-5.1) mmol/L Chloride 105 (96-108) mmol/L Carbon Dioxide 25 (22-29) mmol/L Anion Gap 14 (12-20) BUN 15 (9-16) mg/dL Creatinine 1.52 H (0.5-1.4) mg/dL Estim Creat Clear Calc 54.9 Estimated GFR 48 Random Glucose 129 H (60-115) mg/dL Calcium 9.6 (8.4-10.2) mg/dL Magnesium 2.1 (1.6-2.6) mg/dL Total Bilirubin 0.6 (0.0-1.0) mg/dL Direct Bilirubin 0.2 (0.0-0.5) mg/dL AST 12 (5-37) U/L ALT 8 (0-40) U/L Alkaline Phosphatase 47 (39-117) U/L Troponin I High Sens < 2.7 (<3.5-35.0) ng/L C-Reactive Protein 1.75 H (< or = 0.50) mg/dL B-Natriuretic Peptide 275 H (<100) pg/mL Total Protein 7.0 (6.5-8.0) g/dL Albumin 3.8 (3.5-5.0) g/dL Influenza Type A (PCR) NEGATIVE (Negative) Influenza Type B (PCR) NEGATIVE (Negative) RSV RNA Qual (PCR) NEGATIVE (Negative) SARS-CoV-2 RNA (RT-PCR) NEGATIVE (Negative) Independent Interpretation I performed an independent interpretation of an: EKG Interpretation: EKG at 16:08 shows normal sinus rhythm at 95 beats per minute. Probable LVH. No definite ischemic changes. Critical Care Time Critical Care Time Critical Care Time: Yes Total Critical Care Time: 45 Attestation: The patient was critically ill with a high probability of imminent or life-threatening deterioration. ?I spent greater than 30 minutes of discontinuous time evaluating the patient, delivering critical care at the bedside, discussing evaluating data with consultants. ?Critical care time does not include time spent performing separately billable procedures or teaching. ?Time spent performing critical care with 45 minutes. Discharge Plan Discharge Clinical Impression: Acute asthma exacerbation, Hypertension Patient Disposition: Admitted As Inpatient
[2023-10-17 16:25] LABS: MANUAL DIFF FLAG NO
[2023-10-17 16:29] LABS: VBG HCO3 27 mmol/L (22-26); VBG pCO2 34 mmHg; VBG pO2 77 mmHg
[2023-10-17 16:38] LABS: Basophils Absolute Auto 0.1 X10*3/uL (0.0-0.2); Basophils Percent Auto 0.4 % (0-2); Eosinophils Absolute Auto 1.5 X10*3/uL (0.0-0.4); Eosinophils Percent Auto 10.9 % (0-4); Hematocrit 31.7 % (42.0-52.0); Imm Gran Abs Auto 0.07 X10*3/uL (0.00-0.03); Imm Gran Pct Auto 0.5 % (0.0-0.4); Lymphocytes Absolute Auto 1.1 X10*3/uL (1.2-4.9); Lymphocytes Percent Auto 7.9 % (20-40); Mean Corpuscular HGB Conc 34.7 g/dl (31.0-36.0); Mean Corpuscular Hemoglobin 30.7 pg (27.0-33.0); Mean Corpuscular Volume 88.5 fL (80.0-98.0); Mean Platelet Volume 11.7 fL (9.4-12.4); Monocytes Absolute Auto 0.9 X10*3/uL (0.1-1.2); Monocytes Percent Auto 6.6 % (2-11); Neutrophils Absolute Auto 10.1 x10*3/uL (2.0-8.3); Neutrophils Percent Auto 73.7 % (45-73); Platelet Count 248 X10*3/uL (160-400); Red Blood Count 3.58 X10*6/uL (4.60-5.80); Red Cell Distribution Width 12.7 % (11.0-16.0); White Blood Count 13.7 X10*3/uL (4.8-10.8)
[2023-10-17 16:53] LABS: Alanine Aminotransferase 8 U/L (0-40); Albumin Level 3.8 g/dL (3.5-5.0); Alkaline Phosphatase 47 U/L (39-117); Anion Gap 14 (12-20); Aspartate Amino Transferase 12 U/L (5-37); Bilirubin Direct 0.2 mg/dL (0.0-0.5); Bilirubin Total 0.6 mg/dL (0.0-1.0); Blood Urea Nitrogen 15 mg/dL (9-16); C Reactive Protein 1.75 mg/dL (< or = 0.50); Calcium 9.6 mg/dL (8.4-10.2); Carbon Dioxide 25 mmol/L (22-29); Chloride 105 mmol/L (96-108); Creatinine Clr Calc Pharmacy 54.9; Estimated Glomerular Filt Rate 48; Glucose Random 129 mg/dL (60-115); Magnesium 2.1 mg/dL (1.6-2.6); Potassium 3.9 mmol/L (3.3-5.1); Sodium 140 mmol/L (135-145)
[2023-10-17 16:58] LABS: B Type Natriuretic Peptide 275 pg/mL (<100)
[2023-10-17 16:59] LABS: Troponin-I High Sensitivity < 2.7 ng/L (<3.5-35.0)
[2023-10-17] MEDS: methylPREDNISolone Sod Succ 125 MG/2 ML VIAL 80 MG IVPUSH (17:04)
[2023-10-17] MEDS: cloNIDine HCL 0.1 MG TABLET PO (17:04)
[2023-10-17] MEDS: Magnesium Sulfate/H2O 2 GM/50 ML PIGGYBACK IV (17:05)
[2023-10-17 17:08] LABS: Influenza A PCR NEGATIVE (Negative); Influenza B PCR NEGATIVE (Negative); Resp Syncy Virus RNA Qual PCR NEGATIVE (Negative); SARS COV2 PCR INHOUSE NEGATIVE (Negative)
[2023-10-17 17:41] LABS: Venous Blood Gas Refer to POC result
[2023-10-17] MEDS: Losartan Potassium 25 MG TABLET PO (17:50)
[2023-10-17] MEDS: 0.9 % Sodium Chloride 1,000 ML 999 ML IV (17:50)
--- NOTE | 2023-10-17 18:12 | PC.NURSE ---
Patient with significant dyspnea with any exerction noted.
[2023-10-17] MEDS: Albuterol/Iprat 2.5/0.5MG 3 ML AMPUL.NEB INHALE (18:22)
[2023-10-17] MEDS: cloNIDine HCL 0.1 MG TABLET 0.3 MG PO (19:06)
--- NOTE | 2023-10-17 19:14 | PC.NURSE ---
Assumed care of pt at 19:00. PT laying in bed, 02 sat 95% on RA however is exhibiting increased work of breathing. RR 22. Blood pressure elevated (see chart) Clonidine 0.3 mg given PO, pending effect.
[2023-10-17] MEDS: LORazepam 2 MG/ML VIAL 1 MG IVPUSH (20:21)
[2023-10-17] MEDS: Labetalol HCL 100 MG/20 ML VIAL 10 MG IVPUSH (20:22)
--- NOTE | 2023-10-17 20:34 | PM.IMHP ---
History of Present Illness Date of Service: 10/17/23 Attending physician on admission: Dayne Cristina Chief Complaint: sob, wheezing 53-year-old male with history of hypertension, hyperlipidemia, asthma, GERD, anxiety, atrial septal aneurysm, and hyperostosis of the parieto-occipital region (dx 40 years ago) with chronic daily headaches presented to the ED earlier today for evaluation of shortness of breath and wheezing that has been ongoing for 3 days. He was seen in urgent care 2 days ago and prescribed prednisone and azithromycin. However, symptoms worsened acutely this morning prompting him to present to the ED. Denies fevers, chills but does endorse nonproductive cough. No chest pain. Reports his mother with whom he lives and cares for is sick with similar symptoms. He states he has not taken any of his medications today including his blood pressure medications such as clonidine. Since arrival, patient has been hypertensive to 198/128, tachycardic to 103, tachypneic to 22. Did develop hypoxia to 87% while in the ED now on 2 L supplemental O2 maintaining oximetry 94-95%. He is afebrile. There is leukocytosis of 13.7. Stable normocytic anemia with H/H 11.0/31.7%. Electrolyte levels normal. Troponin undetectable. CRP 1.75. BNP 275. VBG with pH 7.50, pCO2 34, bicarb 27. Negative for COVID-19, RSV, influenza. Chest x-ray unremarkable. In the ED, has received DuoNeb x2, 1 mg lorazepam, 10 mg labetalol, 25 mg losartan, 2 g IV magnesium, 1 L IV NS, a total of 0.4 mg clonidine, and 80 mg IV methylprednisolone. He will be admitted for further management of acute asthma exacerbation with hypoxemic respiratory failure and hypertensive urgency. Of note, pt reports he takes an unkown medication for his headaches and is concerned he will begin to withdraw without the medication. He is unsure of the name. There is no record of any narcotic prescription on [facility]. Will collect UTox. Review of Systems Review of Systems: General: No fevers, malaise, unintentional weight loss HEENT: No blurred vision, diplopia. No sore throat, nasal congestion, rhinorrhea, sinus pain, ear pain Cardiovascular: No chest pain, palpitations, or leg edema Respiratory: Reports shortness of breath, wheezing, cough GI: No abdominal pain, nausea, vomiting, diarrhea, constipation, melena, hematochezia : No dysuria, hematuria, increased urinary frequency, decreased urinary output MSK: No myalgia, back pain Neuro: +headaches. No weakness, paresthesias Skin: No rashes or lesions [facility] Medical History Mild recurrent major depression Atrial septal aneurysm [id number] kidney injury Anxiety Benign essential hypertension Tachycardia GERD (gastroesophageal reflux disease) Headache Hyperostosis Severe depression Moderate asthma Essential hypertension Mixed hyperlipidemia Family History Father Seizures Mother No problems noted. Surgical History History of hernia surgery Social History Housing: Other Housing Other:: [facility] Alcohol intake: never Patient Tobacco Use Status: Former Tobacco user Smoked in Last 30 Days: No e-Cigarette/Vaping Use: Never Used Second Hand Smoke Exposure: No Use of substances other than those prescribed or required for medical reasons: No Advance Directives: No Advance Directives Information Provided: No service: No Current occupational status: disabled Cognitive needs: No Hearing needs: No Vision needs: Yes Meds Allergies Allergy/AdvReac Type Severity Reaction Status Date / Time sumatriptan Allergy Mild headaches Verified 10/17/23 16:28 nifedipine AdvReac Intermediate anxious Verified 07/18/23 15:29 lisinopril AdvReac Mild Anxiety Verified 07/18/23 15:29 Home Medications ?Medication ?Instructions ?Recorded ?Confirmed ?Last Taken ?Type clonidine HCl 0.3 mg tablet 0.3 mg PO TID 07/18/23 07/18/23 Unknown History gabapentin 400 mg capsule 400 mg PO BEDTIME 07/18/23 07/18/23 Unknown History Physical Exam Vital Signs and Narrative: Vital Signs: Last Vital Signs Temp 98.2 F 10/17/23 19:49 Pulse 87 10/17/23 19:49 Resp 16 10/17/23 19:49 BP 198/128 H 10/17/23 19:49 Pulse Ox 96 04/15/24 19:49 O2 Del Method Nasal Cannula 10/17/23 19:49 O2 Flow Rate 2 10/17/23 19:49 BMI result Body Mass Index 25.1 Constitutional - Awake and Alert, Anxious appearing, but No apparent distress Eyes - PERRLA, EOMI Cardiovascular - S1S2, RRR, No edema Respiratory - Normal lung expansion, Normal respiratory effort, No respiratory distress, diffuse coarse expiratory wheezing Extremities - no calf tenderness bilaterally, no swelling Skin - Warm/Dry Neurological - Alert & oriented x3 Psychological - Appropriate affect Results Labs 10/17/23 16:18 10/17/23 16:18 Labs: Laboratory Results - last 24 hr 10/17/23 10/17/23 16:18 16:22 MCV 88.5 MCH 30.7 MCHC 34.7 RDW 12.7 Plt Count 248 D MPV 11.7 Immature Gran % (Auto) 0.5 H Neut % (Auto) 73.7 H Lymph % (Auto) 7.9 L Karnes % (Auto) 6.6 Eos % (Auto) 10.9 H Baso % (Auto) 0.4 Lymph # (Auto) 1.1 L Karnes # (Auto) 0.9 Eos # (Auto) 1.5 H Baso # (Auto) 0.1 Abs Immat Gran (auto) 0.07 H Absolute Neuts (auto) 10.1 H Absolute Nucleated RBC 0.000 Nucleated RBC % (auto) 0.0 VBG pH 7.50 H VBG pCO2 34 VBG pO2 77 VBG HCO3 27 H VBG O2 Saturation 98.0 VBG Base Excess 4.0 Anion Gap 14 Estim Creat Clear Calc 54.9 Estimated GFR 48 Random Glucose 129 H Calcium 9.6 Magnesium 2.1 Total Bilirubin 0.6 Direct Bilirubin 0.2 AST 12 ALT 8 Alkaline Phosphatase 47 Troponin I High Sens < 2.7 C-Reactive Protein 1.75 H B-Natriuretic Peptide 275 H Total Protein 7.0 Albumin 3.8 Influenza Type A (PCR) NEGATIVE Influenza Type B (PCR) NEGATIVE RSV RNA Qual (PCR) NEGATIVE SARS-CoV-2 RNA (RT-PCR) NEGATIVE Imaging Radiologist's Impressions: Impressions Chest X-Ray 10/17/23 16:40 IMPRESSION: No acute cardiopulmonary disease. Assessment and Plan (1) Hypertensive urgency: Status: Acute (2) Acute asthma exacerbation: Status: Acute (3) Acute hypoxemic respiratory failure: Status: Acute Plan 53-year-old male with history of hypertension, hyperlipidemia, asthma, GERD, anxiety, atrial septal aneurysm, and hyperostosis of the parieto-occipital region (dx 40 years ago) with chronic daily headaches admitted for further management of asthma exacerbation with acute hypoxemic respiratory failure and hypertensive urgency. # mild intermittent asthma exacerbation with acute hypoxemic respiratory failure -CXR unremarkable -negative for COVID-19, influenza, RSV. Check RPP -IV methylprednisolone 40 mg b.i.d. -DuoNebs q.4h while awake -symptomatic management -continue supplemental O2 to maintain oximetry greater than 92% # hypertensive urgency -likely rebound hypertension due to missed clonidine doses -resume clonidine 0.3 mg t.i.d., losartan 25 mg daily, propranolol 60 mg daily # hyperostosis with chronic daily headaches -patient denies any change in quality or severity of headaches -reports he is taking unknown medication that could result in withdrawal for miss doses. However, no record of any narcotics on [facility] -check urine tox screen. Monitor on cows -continue gabapentin # severe anxiety -continue propranolol, clonidine, sertraline DVT prophylaxis-Lovenox Full code Patient requires inpatient stay at least 2 midnights for management of acute asthma exacerbation with hypoxemic respiratory failure requiring supplemental oxygen, IV steroids, DuoNebs as well as close monitoring for decompensation. He will also require close vital signs monitoring due to hypertensive urgency with resumption of home antihypertensive agents. Quality Stroke Does the patient have a stroke diagnosis?: No VTE Prior VTE?: No VTE Risk Level:: Medical - moderate - high VTE Device Contraindication: Treatment Not Indicated VTE Drug Contraindication: N/A - Med Ordered
[2023-10-17 21:29] LABS: Amphetamine Screen Urine Not Detected (Not Detect); Barbiturates, Urine Not Detected (Not Detect); Benzodiazepines Screen Urine Not Detected (Not Detect); Cannabinoid Screen Urine Not Detected (Not Detect); Cocaine Screen Urine Not Detected (Not Detect); Fentanyl, urine Not Detected (Not Detect); Opiate Screen Urine Not Detected (Not Detect); Phencyclidine Screen Urine Not Detected (Not Detect)
[2023-10-17] MEDS: Enoxaparin Sodium 40 MG/0.4 ML SYRINGE SUBCUT (22:54)
[2023-10-17] MEDS: Gabapentin 400 MG CAPSULE PO (22:54)
[2023-10-18] VITALS (17 sets, daily range): BP systolic 150–210; BP diastolic 9–118; PULSE 74–107; RESP 13–22; TEMP 36.4–37; O2SAT 94–100
--- NOTE | 2023-10-18 06:02 | PC.NURSE ---
PTs 02 sat currently 98% on 1L. NC discontinued for trial without oxygen. PT tolerating well at this time. Exhibiting decreased WOB.
--- NOTE | 2023-10-18 06:22 | PC.NURSE ---
PT maintaining 98% on RA @ this time.
[2023-10-18 06:27] LABS: MANUAL DIFF FLAG NO
[2023-10-18 06:31] LABS: Basophils Percent Auto 0.2 % (0-2); Eosinophils Percent Auto 0.1 % (0-4); Hematocrit 34.1 % (42.0-52.0); Hemoglobin 11.8 g/dl (14.0-18.0); Imm Gran Abs Auto 0.07 X10*3/uL (0.00-0.03); Imm Gran Pct Auto 0.7 % (0.0-0.4); Lymphocytes Absolute Auto 0.7 X10*3/uL (1.2-4.9); Lymphocytes Percent Auto 7.2 % (20-40); Mean Corpuscular HGB Conc 34.6 g/dl (31.0-36.0); Mean Corpuscular Hemoglobin 31.2 pg (27.0-33.0); Mean Corpuscular Volume 90.2 fL (80.0-98.0); Mean Platelet Volume 12.1 fL (9.4-12.4); Monocytes Absolute Auto 0.2 X10*3/uL (0.1-1.2); Monocytes Percent Auto 1.9 % (2-11); Neutrophils Absolute Auto 9.1 x10*3/uL (2.0-8.3); Neutrophils Percent Auto 89.9 % (45-73); Platelet Count 260 X10*3/uL (160-400); Red Blood Count 3.78 X10*6/uL (4.60-5.80); Red Cell Distribution Width 12.7 % (11.0-16.0); White Blood Count 10.1 X10*3/uL (4.8-10.8)
[2023-10-18 06:50] LABS: Anion Gap 14 (12-20); Blood Urea Nitrogen 16 mg/dL (9-16); Calcium 9.4 mg/dL (8.4-10.2); Carbon Dioxide 26 mmol/L (22-29); Chloride 104 mmol/L (96-108); Estimated Glomerular Filt Rate 49; Glucose Random 130 mg/dL (60-115); Potassium 4.7 mmol/L (3.3-5.1); Sodium 139 mmol/L (135-145)
[2023-10-18] MEDS: methylPREDNISolone Sod Succ 40 MG/ML VIAL IVPUSH ×2 (07:09→16:57)
[2023-10-18] MEDS: Albuterol/Iprat 2.5/0.5MG 3 ML AMPUL.NEB INHALE ×4 (07:37→19:22)
--- NOTE | 2023-10-18 08:37 | PC.NURSE ---
assumed care of pt at 0700. pt a&o x4, pleasant, calm, and cooperative. pt BP noted to be elevated. Dr. Cannon notified and aware. currently at bedside. pt med rec complete. pt ate breakfast. rr even/unlabored. call [facility] within reach. awaiting bed assignment. plan of care ongoing.
--- NOTE | 2023-10-18 08:42 | PHA.MEDREC ---
Pharmacy Consult ? Medication Reconciliation Pharmacy has completed the medication reconciliation. Reviewed med rec done by nurse. Went to talk to patient to confirm med list. Patient said he only takes sertraline 25 mg in the evening as needed and he was sure that he takes 400 mg of gabapentin at night (asked pt where he got the gabapentin from but he didn't answer).
[2023-10-18] MEDS: Azithromycin 500 MG TABLET PO (09:05)
[2023-10-18] MEDS: Loratadine 10 MG TABLET PO (09:05)
[2023-10-18] MEDS: Losartan Potassium 25 MG TABLET PO (09:05)
[2023-10-18] MEDS: cloNIDine HCL 0.1 MG TABLET 0.3 MG PO ×3 (09:05→21:21)
[2023-10-18] MEDS: LORazepam 0.5 MG TABLET PO (09:05)
[2023-10-18] MEDS: Propranolol HCL LA 60 MG CAP.SA.24H PO (09:09)
[2023-10-18 09:11] LABS: Adenovirus PCR Not Detected (Not Detect.); Bordetella parapertussis PCR Not Detected (Not Detect.); Bordetella pertussis PCR Not Detected (Not Detect.); Chlamydia pneumoniae PCR Not Detected (Not Detect.); Coronavirus 229E PCR Not Detected (Not Detect.); Coronavirus HKU1 PCR Not Detected (Not Detect.); Coronavirus NL63 PCR Not Detected (Not Detect.); Coronavirus OC43 PCR Not Detected (Not Detect.); Human metapneumovirus PCR Not Detected (Not Detect.); Influenza A PCR Not Detected (Not Detect.); Influenza B PCR Not Detected (Not Detect.); Mycoplasma pneumoniae PCR Not Detected (Not Detect.); Parainfluenza 1 PCR Not Detected (Not Detect.); Parainfluenza 2 PCR Not Detected (Not Detect.); Parainfluenza 3 PCR Not Detected (Not Detect.); Parainfluenza 4 PCR Not Detected (Not Detect.); RSV PCR Not Detected (Not Detect.); Rhino/Enterovirus PCR Detected (Not Detect.)
[2023-10-18] MEDS: Famotidine 20 MG TABLET 40 MG PO (09:11)
--- NOTE | 2023-10-18 09:37 | MHC.CM.PN ---
cm attempted to meet w/pt however pt is still in ED, cm will revisit once pt comes up to unit.
[2023-10-18 09:52] LABS: SARS-CoV-2 PCR Not Detected (Not Detect.)
--- NOTE | 2023-10-18 15:02 | P.PNIM_ITS ---
Subjective Subjective Date of Service: 10/18/23 Interval History: Shortness of breath, anxiety Review of Systems Shortness of breath seems similar, talking in slow sentences Denies any chest pain or nausea vomiting Physical Exam 2 Vital Signs: Vital Signs: Last Vital Signs Temp 97.5 F 10/18/23 12:00 Pulse 94 10/18/23 14:56 Resp 18 10/18/23 14:56 BP 192/82 H 10/18/23 12:00 Pulse Ox 96 10/18/23 12:00 O2 Del Method Room Air 10/18/23 12:00 O2 Flow Rate 1 10/18/23 05:35 BMI result Body Mass Index 25.1 Appearance: Alert.? Oriented X3.? not in distress. cvs: rrr, [id number] , no murmur res: clear to auscultation ,no rhonchii or wheezing abd: no rebound or guarding ,nt, bs present. ext pulses present , no cyanosis . neuro: axo3 , nonfocal. Objective Data Active Medications Acetaminophen (Acetaminophen 325 Mg Tablet) 650 mg PO Q6H PRN PRN Reason: Pain, Mild (Pain Scale 1-3) Albuterol/Ipratropium (Albuterol/Iprat 2.5/0.5mg 3 Ml Ampul.Neb) 3 ml INHALE RQ4H WHILE AWAKE [facility] Last Admin: 10/18/23 14:54 Dose: 3 ml Documented By: YAMILETH Albuterol/Ipratropium (Albuterol/Iprat 2.5/0.5mg 3 Ml Ampul.Neb) 3 ml INHALE Q3H PRN PRN Reason: Sob Azithromycin (Azithromycin 500 Mg Tablet) 500 mg PO Q24H [facility] Last Admin: 10/18/23 09:05 Dose: 500 mg Documented By: AISHA Clonidine HCl (Clonidine Hcl 0.1 Mg Tablet) 0.3 mg PO TID [facility]; Protocol Last Admin: 10/18/23 09:05 Dose: 0.3 mg Documented By: AISHA Enoxaparin Sodium (Enoxaparin Sodium 40 Mg/0.4 Ml Syringe) 40 mg SUBCUT Q24H [facility] Last Admin: 10/17/23 22:54 Dose: 40 mg Documented By: DONTE Famotidine (Famotidine 20 Mg Tablet) 40 mg PO BID PRN PRN Reason: acid reflux Last Admin: 10/18/23 09:11 Dose: 40 mg Documented By: AISHA Gabapentin (Gabapentin 400 Mg Capsule) 400 mg PO BEDTIME [facility] Last Admin: 10/17/23 22:54 Dose: 400 mg Documented By: DONTE Guaifenesin (Guaifenesin 200 Mg/10 Ml 10 Ml Liquid) 10 ml PO Q4H PRN PRN Reason: Sob Loratadine (Loratadine 10 Mg Tablet) 10 mg PO DAILY [facility] Last Admin: 10/18/23 09:05 Dose: 10 mg Documented By: AISHA Lorazepam (Lorazepam 0.5 Mg Tablet) 0.5 mg PO Q12H PRN PRN Reason: Anxiety Losartan Potassium (Losartan Potassium 25 Mg Tablet) 25 mg PO DAILY [facility]; Protocol Last Admin: 10/18/23 09:05 Dose: 25 mg Documented By: AISHA Methylprednisolone Sodium Succinate (Methylprednisolone Sod Succ 40 Mg/Ml Vial) 40 mg IVPUSH Q12H [facility] Last Admin: 10/18/23 07:09 Dose: 40 mg Documented By: AISHA Ondansetron HCl (Ondansetron Hcl 4 Mg/2 Ml Vial) 4 mg IVPUSH Q8H PRN PRN Reason: Nausea and Vomiting Propranolol HCl (Propranolol Hcl La 60 Mg Cap.Sa.24h) 60 mg PO DAILY [facility]; Protocol Last Admin: 10/18/23 09:09 Dose: 60 mg Documented By: AISHA Senna (Sennosides 8.6 Mg Tablet) 17.2 mg PO BEDTIME PRN PRN Reason: Constipation Sodium Chloride (0.9 % Sodium Chloride Flush 3 Ml Syringe) 3 ml IVFLUSH QSHIFT [facility] Last Admin: 10/18/23 07:04 Dose: Not Given Documented By: AISHA Non-Admin Reason: Med Not Available Labs 10/18/23 05:20 10/18/23 05:20 Labs: Laboratory Results - last 24 hr 10/17/23 10/17/23 10/17/23 16:18 16:22 Unknown MCV 88.5 MCH 30.7 MCHC 34.7 RDW 12.7 Plt Count 248 D MPV 11.7 Immature Gran % (Auto) 0.5 H Neut % (Auto) 73.7 H Lymph % (Auto) 7.9 L Scurry % (Auto) 6.6 Eos % (Auto) 10.9 H Baso % (Auto) 0.4 Lymph # (Auto) 1.1 L [place] # (Auto) 0.9 Eos # (Auto) 1.5 H Baso # (Auto) 0.1 Abs Immat Gran (auto) 0.07 H Absolute Neuts (auto) 10.1 H Absolute Nucleated RBC 0.000 Nucleated RBC % (auto) 0.0 VBG pH 7.50 H VBG pCO2 34 VBG pO2 77 VBG HCO3 27 H VBG O2 Saturation 98.0 VBG Base Excess 4.0 Anion Gap 14 Estim Creat Clear Calc 54.9 Estimated GFR 48 Random Glucose 129 H Calcium 9.6 Magnesium 2.1 Total Bilirubin 0.6 Direct Bilirubin 0.2 AST 12 ALT 8 Alkaline Phosphatase 47 Troponin I High Sens < 2.7 C-Reactive Protein 1.75 H B-Natriuretic Peptide 275 H Total Protein 7.0 Albumin 3.8 Urine Opiates Screen Not Detected Urine Fentanyl Screen Not Detected Ur Barbiturates Screen Not Detected Ur Phencyclidine Scrn Not Detected Ur Amphetamines Screen Not Detected U Benzodiazepines Scrn Not Detected Urine Cocaine Screen Not Detected U Marijuana (THC) Screen Not Detected Respiratory Panel Bethea See Note Adenovirus (Rapid PCR) Not Detected B.pert (TEM-PCR) Not Detected B.parapertussis DNA PCR Not Detected C. pneumoniae DNA (PCR) Not Detected Coronavirus OC43 (PCR) Not Detected Coronavirus HKU1 (PCR) Not Detected Coronavirus 229E (PCR) Not Detected Coronavirus NL63 (PCR) Not Detected Human Metapneumovir PCR Not Detected Influenza A (RT-PCR) Not Detected Influenza Type A (PCR) NEGATIVE Influenza B (RT-PCR) Not Detected Influenza Type B (PCR) NEGATIVE M. pneumoniae (PCR) Not Detected Parainfluenza 1 (PCR) Not Detected Parainfluenza 2 (PCR) Not Detected Parainfluenza 3 (PCR) Not Detected Parainfluenza 4 (PCR) Not Detected RSV (PCR) Not Detected RSV RNA Qual (PCR) NEGATIVE Entero/Rhino (PCR) Detected A SARS-CoV-2 RNA (RT-PCR) NEGATIVE Not Detected 10/18/23 05:20 MCV 90.2 MCH 31.2 MCHC 34.6 RDW 12.7 Plt Count 260 MPV 12.1 Immature Gran % (Auto) 0.7 H Neut % (Auto) 89.9 H Lymph % (Auto) 7.2 L [place] % (Auto) 1.9 L Eos % (Auto) 0.1 Baso % (Auto) 0.2 Lymph # (Auto) 0.7 L [place] # (Auto) 0.2 Eos # (Auto) 0.0 Baso # (Auto) 0.0 Abs Immat Gran (auto) 0.07 H Absolute Neuts (auto) 9.1 H Absolute Nucleated RBC 0.000 Nucleated RBC % (auto) 0.0 VBG pH VBG pCO2 VBG pO2 VBG HCO3 VBG O2 Saturation VBG Base Excess Anion Gap 14 Estim Creat Clear Calc 56.0 Estimated GFR 49 Random Glucose 130 H Calcium 9.4 Magnesium Total Bilirubin Direct Bilirubin AST ALT Alkaline Phosphatase Troponin I High Sens C-Reactive Protein B-Natriuretic Peptide Total Protein Albumin Urine Opiates Screen Urine Fentanyl Screen Ur Barbiturates Screen Ur Phencyclidine Scrn Ur Amphetamines Screen U Benzodiazepines Scrn Urine Cocaine Screen U Marijuana (THC) Screen Respiratory Panel Bethea Adenovirus (Rapid PCR) B.pert (TEM-PCR) B.parapertussis DNA PCR C. pneumoniae DNA (PCR) Coronavirus OC43 (PCR) Coronavirus HKU1 (PCR) Coronavirus 229E (PCR) Coronavirus NL63 (PCR) Human Metapneumovir PCR Influenza A (RT-PCR) Influenza Type A (PCR) Influenza B (RT-PCR) Influenza Type B (PCR) M. pneumoniae (PCR) Parainfluenza 1 (PCR) Parainfluenza 2 (PCR) Parainfluenza 3 (PCR) Parainfluenza 4 (PCR) RSV (PCR) RSV RNA Qual (PCR) Entero/Rhino (PCR) SARS-CoV-2 RNA (RT-PCR) Assessment and Plan (1) Acute hypoxemic respiratory failure: Status: Acute (2) Hypertension: Status: Acute Assessment and Plan: 53-year-old male with history of hypertension, hyperlipidemia, asthma, GERD, anxiety, atrial septal aneurysm, and hyperostosis of the parieto-occipital region (dx 40 years ago) with chronic daily headaches admitted for further management of asthma exacerbation with acute hypoxemic respiratory failure and hypertensive urgency. mild intermittent asthma exacerbation with acute hypoxemic respiratory failure in setting of enetro/rhinovirus uri. CXR unremarkable,negative for COVID-19, influenza, RSV. Check RPP continue IV methylprednisolone 40 mg b.i.d.,DuoNebs q.4h while awake,azithromycin,symptomatic management continue supplemental O2 to maintain oximetry greater than 92% hypertensive controlled:likely rebound hypertension due to missed clonidine doses continue clonidine 0.3 mg t.i.d, losartan 25 mg daily, propranolol 60 mg daily. ckd 3: stable range . severe anxiety-continue propranolol, clonidine, sertraline,added ativan prn psych eval. DVT prophylaxis-Lovenox Full code Patient requires inpatient stay for 48-72 hrs for acute asthma exacerbation with hypoxemic respiratory failure requiring supplemental oxygen, IV steroids, DuoNebs as well as close monitoring for decompensation. He will also require close vital signs monitoring due to hypertensive urgency with resumption of home antihypertensive agents. Quality Stroke Does the patient have a stroke diagnosis?: No VTE Prior VTE?: No VTE Risk Level:: Medical - moderate - high VTE Device Contraindication: Treatment Not Indicated VTE Drug Contraindication: N/A - Med Ordered
--- NOTE | 2023-10-18 15:08 | PM.PSYCN ---
History of Present Illness Date of Service: 10/18/2023 Chief Complaint: Asthma exacerbation, hypoxia, hypertensive urgency Requesting physician: Lanette Cannon Discussed with referring provider: Yes Sources of Information: patient interviewed, chart reviewed and crisis/core team assessment reviewed HPI Narrative: Mr. Salter is a 53 year-old male admitted to medical floor for exacerbation of asthma and hypertensive crisis. Psychiatry consulted to management of panic attacks and anxiety. Utox is negative. Pt reports hx of of panic attacks for the past 3 years. He describes symptoms as heart racing, feeling like he is going to , sweatiness, lasting few minutes. He reports sometimes these symptoms do happen when having asthma attack but other times independent of asthma attack. He does report feeling particularly worried and anxious about not having his inhaler with him due to fear of having an asthma attack. He denies depressed mood. He also denies SI/HI. He reports ihs PCP has been prescribing sertraline 25mg po daily- he reports he had side effects in the past with this medication and is cautious about increasing dose. He reports fair sleep as he cares for his elderly mother who has advanced dementia and at times she is up most of the night. When asked about hx of hallucinations, he does report seeing some shadows but does not seem particularly psychotic symptoms. No hx of inpatient psychiatric admission. No hx of suicide attempts. [facility] Medical History Mild recurrent major depression Atrial septal aneurysm Hplkg-po-rwkfjyl kidney injury Anxiety Benign essential hypertension Tachycardia GERD (gastroesophageal reflux disease) Headache Hyperostosis Severe depression Moderate asthma Essential hypertension Mixed hyperlipidemia Surgical History History of hernia surgery Diagnostics Vital Signs (24Hr): Vital Signs - 24 hr 10/17/23 16:09 10/17/23 16:25 10/17/23 18:12 Temperature 98.4 F 98.6 F Pulse Rate 95 85 99 Respiratory Rate 26 H 22 H 18 Blood Pressure 181/119 H 180/123 H Pulse Oximetry 96 93 Oxygen Delivery Method Room Air Room Air Oxygen Flow Rate 10/17/23 18:23 10/17/23 19:05 10/17/23 19:49 Temperature 98.2 F Pulse Rate 103 H 90 87 Respiratory Rate 20 22 H 16 Blood Pressure 182/122 H 198/128 H Pulse Oximetry 95 96 Oxygen Delivery Method Room Air Nasal Cannula Oxygen Flow Rate 2 10/17/23 20:20 10/17/23 20:53 10/17/23 21:38 Temperature 98.5 F Pulse Rate 88 84 89 Respiratory Rate 16 Blood Pressure 199/108 H 120/87 159/110 H Pulse Oximetry 98 92 96 Oxygen Delivery Method Room Air Nasal Cannula Room Air Oxygen Flow Rate 2 10/17/23 22:35 10/18/23 02:01 10/18/23 05:35 Temperature 98.2 F 98.5 F Pulse Rate 83 85 89 Respiratory Rate 16 16 14 Blood Pressure 152/103 H 150/101 H 155/107 H Pulse Oximetry 97 94 96 Oxygen Delivery Method Nasal Cannula Room Air Nasal Cannula Room Air Nasal Cannula Oxygen Flow Rate 2 1 1 10/18/23 07:05 10/18/23 07:39 10/18/23 08:35 Temperature 97.6 F Pulse Rate 84 107 H 107 H Respiratory Rate 13 18 14 Blood Pressure 164/110 H 187/118 H Pulse Oximetry 98 94 Oxygen Delivery Method Room Air Room Air Oxygen Flow Rate 10/18/23 10:40 10/18/23 11:13 10/18/23 12:00 Temperature 97.5 F Pulse Rate 90 100 81 Respiratory Rate 22 H 18 20 Blood Pressure 210/110 H 192/82 H Pulse Oximetry 95 96 Oxygen Delivery Method Room Air Room Air Oxygen Flow Rate 10/18/23 14:56 Temperature Pulse Rate 94 Respiratory Rate 18 Blood Pressure Pulse Oximetry Oxygen Delivery Method Oxygen Flow Rate BMI result Body Mass Index 25.1 Labs 10/18/23 05:20 10/18/23 05:20 Labs: Laboratory Results - last 48 hr 10/17/23 10/17/23 10/17/23 16:18 16:22 Unknown WBC 13.7 H RBC 3.58 L D Hgb 11.0 L D Hct 31.7 L D MCV 88.5 MCH 30.7 MCHC 34.7 RDW 12.7 Plt Count 248 D MPV 11.7 Immature Gran % (Auto) 0.5 H Neut % (Auto) 73.7 H Lymph % (Auto) 7.9 L Saunders % (Auto) 6.6 Eos % (Auto) 10.9 H Baso % (Auto) 0.4 Lymph # (Auto) 1.1 L Saunders # (Auto) 0.9 Eos # (Auto) 1.5 H Baso # (Auto) 0.1 Abs Immat Gran (auto) 0.07 H Absolute Neuts (auto) 10.1 H Absolute Nucleated RBC 0.000 Nucleated RBC % (auto) 0.0 VBG pH 7.50 H VBG pCO2 34 VBG pO2 77 VBG HCO3 27 H VBG O2 Saturation 98.0 VBG Base Excess 4.0 Sodium 140 Potassium 3.9 Chloride 105 Carbon Dioxide 25 Anion Gap 14 BUN 15 Creatinine 1.52 H Estim Creat Clear Calc 54.9 Estimated GFR 48 Random Glucose 129 H Calcium 9.6 Magnesium 2.1 Total Bilirubin 0.6 Direct Bilirubin 0.2 AST 12 ALT 8 Alkaline Phosphatase 47 Troponin I High Sens < 2.7 C-Reactive Protein 1.75 H B-Natriuretic Peptide 275 H Total Protein 7.0 Albumin 3.8 Urine Opiates Screen Not Detected Urine Fentanyl Screen Not Detected Ur Barbiturates Screen Not Detected Ur Phencyclidine Scrn Not Detected Ur Amphetamines Screen Not Detected U Benzodiazepines Scrn Not Detected Urine Cocaine Screen Not Detected U Marijuana (THC) Screen Not Detected Respiratory Panel Bethea See Note Adenovirus (Rapid PCR) Not Detected B.pert (TEM-PCR) Not Detected B.parapertussis DNA PCR Not Detected C. pneumoniae DNA (PCR) Not Detected Coronavirus OC43 (PCR) Not Detected Coronavirus HKU1 (PCR) Not Detected Coronavirus 229E (PCR) Not Detected Coronavirus NL63 (PCR) Not Detected Human Metapneumovir PCR Not Detected Influenza A (RT-PCR) Not Detected Influenza Type A (PCR) NEGATIVE Influenza B (RT-PCR) Not Detected Influenza Type B (PCR) NEGATIVE M. pneumoniae (PCR) Not Detected Parainfluenza 1 (PCR) Not Detected Parainfluenza 2 (PCR) Not Detected Parainfluenza 3 (PCR) Not Detected Parainfluenza 4 (PCR) Not Detected RSV (PCR) Not Detected RSV RNA Qual (PCR) NEGATIVE Entero/Rhino (PCR) Detected A SARS-CoV-2 RNA (RT-PCR) NEGATIVE Not Detected 10/18/23 05:20 WBC 10.1 RBC 3.78 L Hgb 11.8 L Hct 34.1 L MCV 90.2 MCH 31.2 MCHC 34.6 RDW 12.7 Plt Count 260 MPV 12.1 Immature Gran % (Auto) 0.7 H Neut % (Auto) 89.9 H Lymph % (Auto) 7.2 L Saunders % (Auto) 1.9 L Eos % (Auto) 0.1 Baso % (Auto) 0.2 Lymph # (Auto) 0.7 L Saunders # (Auto) 0.2 Eos # (Auto) 0.0 Baso # (Auto) 0.0 Abs Immat Gran (auto) 0.07 H Absolute Neuts (auto) 9.1 H Absolute Nucleated RBC 0.000 Nucleated RBC % (auto) 0.0 VBG pH VBG pCO2 VBG pO2 VBG HCO3 VBG O2 Saturation VBG Base Excess Sodium 139 Potassium 4.7 D Chloride 104 Carbon Dioxide 26 Anion Gap 14 BUN 16 Creatinine 1.49 H Estim Creat Clear Calc 56.0 Estimated GFR 49 Random Glucose 130 H Calcium 9.4 Magnesium Total Bilirubin Direct Bilirubin AST ALT Alkaline Phosphatase Troponin I High Sens C-Reactive Protein B-Natriuretic Peptide Total Protein Albumin Urine Opiates Screen Urine Fentanyl Screen Ur Barbiturates Screen Ur Phencyclidine Scrn Ur Amphetamines Screen U Benzodiazepines Scrn Urine Cocaine Screen U Marijuana (THC) Screen Respiratory Panel Bethea Adenovirus (Rapid PCR) B.pert (TEM-PCR) B.parapertussis DNA PCR C. pneumoniae DNA (PCR) Coronavirus OC43 (PCR) Coronavirus HKU1 (PCR) Coronavirus 229E (PCR) Coronavirus NL63 (PCR) Human Metapneumovir PCR Influenza A (RT-PCR) Influenza Type A (PCR) Influenza B (RT-PCR) Influenza Type B (PCR) M. pneumoniae (PCR) Parainfluenza 1 (PCR) Parainfluenza 2 (PCR) Parainfluenza 3 (PCR) Parainfluenza 4 (PCR) RSV (PCR) RSV RNA Qual (PCR) Entero/Rhino (PCR) SARS-CoV-2 RNA (RT-PCR) Imaging Radiology Impressions: ITS Impressions Chest X-Ray 10/17/23 16:40 IMPRESSION: No acute cardiopulmonary disease. Mental Status Exam Mental Status Exam Narrative: Appearance: wearing hospital gown, some SOB, in NAD Behavior: cooperative Psychomotor: no agitation or retardation noted Speech: clear, normal rate/rhythm/volume, spontaneous TP: linear TC: no signs of psychosis, feeling anxious and overwhelmed with his medical condition as well caring for elderly mother with dementia Mood: anxious Affect: congruent SI: denies HI: denies AV/VH: none Delusions: none Insight/judgment: fair x2 Memory/cog: alert, oriented x 3. grossly intact to conversational testing. Medications Medications Current Medications Acetaminophen (Acetaminophen 325 Mg Tablet) 650 mg PO Q6H PRN PRN Reason: Pain, Mild (Pain Scale 1-3) Albuterol/Ipratropium (Albuterol/Iprat 2.5/0.5mg 3 Ml Ampul.Neb) 3 ml INHALE RQ4H WHILE AWAKE JOSE D Last Admin: 10/18/23 14:54 Dose: 3 ml Albuterol/Ipratropium (Albuterol/Iprat 2.5/0.5mg 3 Ml Ampul.Neb) 3 ml INHALE Q3H PRN PRN Reason: Sob Azithromycin (Azithromycin 500 Mg Tablet) 500 mg PO Q24H JOSE D Last Admin: 10/18/23 09:05 Dose: 500 mg Clonidine HCl (Clonidine Hcl 0.1 Mg Tablet) 0.3 mg PO TID JOSE D; Protocol Last Admin: 10/18/23 09:05 Dose: 0.3 mg Enoxaparin Sodium (Enoxaparin Sodium 40 Mg/0.4 Ml Syringe) 40 mg SUBCUT Q24H JOSE D Last Admin: 10/17/23 22:54 Dose: 40 mg Famotidine (Famotidine 20 Mg Tablet) 40 mg PO BID PRN PRN Reason: acid reflux Last Admin: 10/18/23 09:11 Dose: 40 mg Gabapentin (Gabapentin 400 Mg Capsule) 400 mg PO BEDTIME JOSE D Last Admin: 10/17/23 22:54 Dose: 400 mg Guaifenesin (Guaifenesin 200 Mg/10 Ml 10 Ml Liquid) 10 ml PO Q4H PRN PRN Reason: Sob Loratadine (Loratadine 10 Mg Tablet) 10 mg PO DAILY JOSE D Last Admin: 10/18/23 09:05 Dose: 10 mg Lorazepam (Lorazepam 0.5 Mg Tablet) 0.5 mg PO Q12H PRN PRN Reason: Anxiety Losartan Potassium (Losartan Potassium 25 Mg Tablet) 25 mg PO DAILY JOSE D; Protocol Last Admin: 10/18/23 09:05 Dose: 25 mg Methylprednisolone Sodium Succinate (Methylprednisolone Sod Succ 40 Mg/Ml Vial) 40 mg IVPUSH Q12H JOSE D Last Admin: 10/18/23 07:09 Dose: 40 mg Ondansetron HCl (Ondansetron Hcl 4 Mg/2 Ml Vial) 4 mg IVPUSH Q8H PRN PRN Reason: Nausea and Vomiting Propranolol HCl (Propranolol Hcl La 60 Mg Cap.Sa.24h) 60 mg PO DAILY [facility]; Protocol Last Admin: 10/18/23 09:09 Dose: 60 mg Senna (Sennosides 8.6 Mg Tablet) 17.2 mg PO BEDTIME PRN PRN Reason: Constipation Sodium Chloride (0.9 % Sodium Chloride Flush 3 Ml Syringe) 3 ml IVFLUSH QSHIFT [facility] Last Admin: 10/18/23 07:04 Dose: Not Given Allergies Allergies Allergy/AdvReac Type Severity Reaction Status Date / Time sumatriptan Allergy Mild headaches Verified 10/17/23 16:28 nifedipine AdvReac Intermediate anxious Verified 07/18/23 15:29 lisinopril AdvReac Mild Anxiety Verified 07/18/23 15:29 Assessment & Plan Assessment & Plan (1) Moderate major depression: Status: Acute Code(s): F32.1 - Major depressive disorder, single episode, moderate (2) Panic disorder: Status: Acute Code(s): F41.0 - Panic disorder [episodic paroxysmal anxiety] Plan Mr. Salter is a 53 year-old male with hx of asthma, admitted for acute on chronic respiratory failure. Psychiatry consult due to ongoing panic attacks, increase anxious mood exacerbating asthma and affecting quality of care. Pt has been on low dose sertraline which at this point would not expect having any therapeutic effect. However, he reports he had side effects with this medication in the past and would like to try another antidepressant. We discussed starting lexapro 10mg po daily. We also discuss short term ativan for panic attacks. He also agrees to speak with his OP therapist at [facility] to connect with psychiatric provider for further medication management. Also, recommend considering different beta navjot than propanolol for rate control as it may exacerbate bronchospasm. PLAN 1. No need for inpt level of care for psychiatric care. 2. dc sertraline. start lexapro 10mg po daily. ativan 0.5mg po BID prn panic attack 3. consider changing propanolol to different beta navjot, especially if used for heart rate control as it will have less impact on bronchospasm and exacerbation of asthmatic attacks. Total time managing care of this patient today ____ minutes.
--- NOTE | 2023-10-18 16:38 | MHC.CM.PN ---
Emr reviewed, pt admitted w/asthma exac, hypoxia.. 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 PCP on file verified.
[2023-10-18] MEDS: amLODIPine Besylate 2.5 MG TABLET PO (16:57)
[2023-10-18] MEDS: 0.9 % Sodium Chloride Flush 3 ML SYRINGE IVFLUSH ×2 (16:58→21:25)
[2023-10-18] MEDS: Gabapentin 400 MG CAPSULE PO (21:21)
[2023-10-18] MEDS: Enoxaparin Sodium 40 MG/0.4 ML SYRINGE SUBCUT (21:22)
[2023-10-19] VITALS (18 sets, daily range): BP systolic 138–166; BP diastolic 77–103; PULSE 76–93; RESP 18; TEMP 36.6–37.6; O2SAT 95–98
[2023-10-19] MEDS: methylPREDNISolone Sod Succ 40 MG/ML VIAL IVPUSH ×2 (05:45→18:36)
[2023-10-19] MEDS: Albuterol/Iprat 2.5/0.5MG 3 ML AMPUL.NEB INHALE ×4 (07:45→19:49)
[2023-10-19] MEDS: Azithromycin 500 MG TABLET PO (08:17)
[2023-10-19] MEDS: Losartan Potassium 25 MG TABLET PO (08:17)
[2023-10-19] MEDS: 0.9 % Sodium Chloride Flush 3 ML SYRINGE IVFLUSH ×3 (08:18→22:58)
[2023-10-19] MEDS: cloNIDine HCL 0.1 MG TABLET 0.3 MG PO ×3 (08:18→22:57)
[2023-10-19] MEDS: Loratadine 10 MG TABLET PO (08:19)
[2023-10-19] MEDS: Propranolol HCL LA 60 MG CAP.SA.24H PO (08:19)
[2023-10-19] MEDS: guaiFENesin 200 MG/10 ML 10 ML LIQUID PO (08:30)
[2023-10-19] MEDS: guaiFEN/Codeine SF 200/20/10ML 10 ML LIQUID PO ×2 (09:32→15:51)
[2023-10-19] MEDS: guaiFENesin LA 600 MG TAB.ER.12H PO (11:33)
--- NOTE | 2023-10-19 12:28 | HO.PM.IMPN ---
Subjective Subjective Date of Service: 10/19/23 Interval History: asthma exceebation ,uncontrolled htn Review of Systems sob with minimal excersion ,aggressive cough Physical Exam Vital Signs: Vital Signs: Last Vital Signs Temp 98.5 F 10/19/23 11:05 Pulse 78 10/19/23 11:23 Resp 18 10/19/23 11:23 BP 138/77 10/19/23 11:05 Pulse Ox 97 10/19/23 11:05 O2 Del Method Room Air 10/19/23 11:05 O2 Flow Rate 1 10/18/23 05:35 BMI result Body Mass Index 25.1 Appearance: Alert.? Oriented X3.? not in distress. cvs: rrr, [id number] . res: clear to auscultation ,no rhonchii or wheezing abd: no rebound or guarding ,nt, bs present. ext pulses present , no cyanosis . neuro: axo3 , nonfocal. Objective Data Active Medications Acetaminophen (Acetaminophen 325 Mg Tablet) 650 mg PO Q6H PRN PRN Reason: Pain, Mild (Pain Scale 1-3) Albuterol/Ipratropium (Albuterol/Iprat 2.5/0.5mg 3 Ml Ampul.Neb) 3 ml INHALE RQ4H WHILE AWAKE [facility] Last Admin: 10/19/23 11:23 Dose: 3 ml Documented By: STEPHANIE Albuterol/Ipratropium (Albuterol/Iprat 2.5/0.5mg 3 Ml Ampul.Neb) 3 ml INHALE Q3H PRN PRN Reason: Sob Azithromycin (Azithromycin 500 Mg Tablet) 500 mg PO Q24H [facility] Last Admin: 10/19/23 08:17 Dose: 500 mg Documented By: GINI Clonidine HCl (Clonidine Hcl 0.1 Mg Tablet) 0.3 mg PO TID [facility]; Protocol Last Admin: 10/19/23 08:18 Dose: 0.3 mg Documented By: GINI Enoxaparin Sodium (Enoxaparin Sodium 40 Mg/0.4 Ml Syringe) 40 mg SUBCUT Q24H [facility] Last Admin: 10/18/23 21:22 Dose: 40 mg Documented By: SUNNY Famotidine (Famotidine 20 Mg Tablet) 40 mg PO BID PRN PRN Reason: acid reflux Last Admin: 10/18/23 09:11 Dose: 40 mg Documented By: AISHA Gabapentin (Gabapentin 400 Mg Capsule) 400 mg PO BEDTIME [facility] Last Admin: 10/18/23 21:21 Dose: 400 mg Documented By: SUNNY Guaifenesin/Codeine Phosphate (Guaifen/Codeine Sf 200/20/10ml 10 Ml Liquid) 10 ml PO Q4H PRN PRN Reason: Cough Last Admin: 10/19/23 09:32 Dose: 10 ml Documented By: GINI Loratadine (Loratadine 10 Mg Tablet) 10 mg PO DAILY [facility] Last Admin: 10/19/23 08:19 Dose: 10 mg Documented By: GINI Lorazepam (Lorazepam 0.5 Mg Tablet) 0.5 mg PO Q12H PRN PRN Reason: Anxiety Losartan Potassium (Losartan Potassium 25 Mg Tablet) 25 mg PO DAILY [facility]; Protocol Last Admin: 10/19/23 08:17 Dose: 25 mg Documented By: GINI Methylprednisolone Sodium Succinate (Methylprednisolone Sod Succ 40 Mg/Ml Vial) 40 mg IVPUSH Q12H [facility] Last Admin: 10/19/23 05:45 Dose: 40 mg Documented By: SUNYN Ondansetron HCl (Ondansetron Hcl 4 Mg/2 Ml Vial) 4 mg IVPUSH Q8H PRN PRN Reason: Nausea and Vomiting Propranolol HCl (Propranolol Hcl La 60 Mg Cap.Sa.24h) 60 mg PO DAILY [facility]; Protocol Last Admin: 10/19/23 08:19 Dose: 60 mg Documented By: GINI Senna (Sennosides 8.6 Mg Tablet) 17.2 mg PO BEDTIME PRN PRN Reason: Constipation Sodium Chloride (0.9 % Sodium Chloride Flush 3 Ml Syringe) 3 ml IVFLUSH QSHIFT [facility] Last Admin: 10/19/23 08:18 Dose: 3 ml Documented By: GINI Labs 10/18/23 05:20 10/18/23 05:20 Assessment and Plan (1) Acute hypoxemic respiratory failure: Status: Acute (2) Hypertension: Status: Acute Assessment and Plan: 53-year-old male with history of hypertension, hyperlipidemia, asthma, GERD, anxiety, atrial septal aneurysm, and hyperostosis of the parieto-occipital region (dx 40 years ago) with chronic daily headaches admitted for further management of asthma exacerbation with acute hypoxemic respiratory failure and hypertensive urgency. mild intermittent asthma exacerbation with acute hypoxemic respiratory failure in setting of enetro/rhinovirus uri. CXR unremarkable,negative for COVID-19, influenza, RSV. plan: continue IV methylprednisolone 40 mg b.i.d.,DuoNebs q.4h while awake,azithromycin,symptomatic management-hycodan, supplemental O2 to maintain oximetry greater than 92% hypertensive controlled:likely rebound hypertension due to missed clonidine doses. improving continue clonidine 0.3 mg t.i.d, losartan 25 mg daily, propranolol 60 mg daily. ckd 3: stable range . severe anxiety-continue propranolol, clonidine, sertraline,added ativan prn psych eval. DVT prophylaxis-Lovenox Full code Patient requires inpatient stay for 48-72 hrs for acute asthma exacerbation with hypoxemic respiratory failure requiring supplemental oxygen, IV steroids, DuoNebs as well as close monitoring for decompensation. He will also require close vital signs monitoring due to hypertensive urgency with resumption of home antihypertensive agents. Quality Stroke Does the patient have a stroke diagnosis?: No VTE Prior VTE?: No VTE Risk Level:: Medical - moderate - high VTE Device Contraindication: Treatment Not Indicated VTE Drug Contraindication: N/A - Med Ordered
[2023-10-19] MEDS: Enoxaparin Sodium 40 MG/0.4 ML SYRINGE SUBCUT (22:56)
[2023-10-19] MEDS: Gabapentin 400 MG CAPSULE PO (22:57)
[2023-10-20] VITALS (17 sets, daily range): BP systolic 150–200; BP diastolic 94–128; PULSE 70–96; RESP 17–20; TEMP 36.4–37.4; O2SAT 96–99
[2023-10-20] MEDS: methylPREDNISolone Sod Succ 40 MG/ML VIAL IVPUSH ×2 (06:14→17:50)
[2023-10-20] MEDS: cloNIDine HCL 0.1 MG TABLET 0.3 MG PO ×3 (07:58→20:08)
[2023-10-20] MEDS: Propranolol HCL LA 60 MG CAP.SA.24H PO (07:58)
[2023-10-20] MEDS: Losartan Potassium 25 MG TABLET PO (07:58)
[2023-10-20] MEDS: Azithromycin 500 MG TABLET PO (07:58)
[2023-10-20] MEDS: Loratadine 10 MG TABLET PO (07:58)
[2023-10-20] MEDS: 0.9 % Sodium Chloride Flush 3 ML SYRINGE IVFLUSH ×3 (08:01→20:12)
[2023-10-20] MEDS: guaiFEN/Codeine SF 200/20/10ML 10 ML LIQUID PO (08:15)
[2023-10-20] MEDS: Albuterol/Iprat 2.5/0.5MG 3 ML AMPUL.NEB INHALE ×4 (08:18→19:51)
--- NOTE | 2023-10-20 11:44 | HO.PM.IMPN ---
Subjective Subjective Date of Service: 10/20/23 Interval History: asthma excerebation ,uncontrolled htn Review of Systems sob and wheezin htn uncontrolled. Physical Exam Vital Signs: Vital Signs: Last Vital Signs Temp 98.9 F 10/20/23 11:41 Pulse 76 10/20/23 11:42 Resp 17 10/20/23 11:42 BP 160/98 H 10/20/23 11:41 Pulse Ox 96 10/20/23 11:41 O2 Del Method Room Air 10/20/23 11:41 O2 Flow Rate 1 10/18/23 05:35 BMI result Body Mass Index 25.1 Appearance: Alert.? Oriented X3.? not in distress. cvs: rrr, [id number] . res: clear to auscultation ,no rhonchii or wheezing abd: no rebound or guarding ,nt, bs present. ext pulses present , no cyanosis . neuro: axo3 , nonfocal. Objective Data Active Medications Acetaminophen (Acetaminophen 325 Mg Tablet) 650 mg PO Q6H PRN PRN Reason: Pain, Mild (Pain Scale 1-3) Albuterol/Ipratropium (Albuterol/Iprat 2.5/0.5mg 3 Ml Ampul.Neb) 3 ml INHALE RQ4H WHILE AWAKE [facility] Last Admin: 10/20/23 11:42 Dose: 3 ml Documented By: ORIN Albuterol/Ipratropium (Albuterol/Iprat 2.5/0.5mg 3 Ml Ampul.Neb) 3 ml INHALE Q3H PRN PRN Reason: Sob Amlodipine Besylate (Amlodipine Besylate 2.5 Mg Tablet) 2.5 mg PO ONCE ONE; Protocol Stop: 10/20/23 11:44 Azithromycin (Azithromycin 500 Mg Tablet) 500 mg PO Q24H [facility] D Last Admin: 10/20/23 07:58 Dose: 500 mg Documented By: REYNALDO Clonidine HCl (Clonidine Hcl 0.1 Mg Tablet) 0.3 mg PO TID [facility]; Protocol Last Admin: 10/20/23 07:58 Dose: 0.3 mg Documented By: REYNALDO Enoxaparin Sodium (Enoxaparin Sodium 40 Mg/0.4 Ml Syringe) 40 mg SUBCUT Q24H [facility] Last Admin: 10/19/23 22:56 Dose: 40 mg Documented By: SCOTTIE Famotidine (Famotidine 20 Mg Tablet) 40 mg PO BID PRN PRN Reason: acid reflux Last Admin: 10/18/23 09:11 Dose: 40 mg Documented By: AISHA Gabapentin (Gabapentin 400 Mg Capsule) 400 mg PO BEDTIME [facility] Last Admin: 10/19/23 22:57 Dose: 400 mg Documented By: SCOTTIE Guaifenesin/Codeine Phosphate (Guaifen/Codeine Sf 200/20/10ml 10 Ml Liquid) 10 ml PO Q4H PRN PRN Reason: Cough Last Admin: 10/20/23 08:15 Dose: 10 ml Documented By: REYNALDO Loratadine (Loratadine 10 Mg Tablet) 10 mg PO DAILY [facility] Last Admin: 10/20/23 07:58 Dose: 10 mg Documented By: REYNALDO Lorazepam (Lorazepam 0.5 Mg Tablet) 0.5 mg PO Q12H PRN PRN Reason: Anxiety Losartan Potassium (Losartan Potassium 25 Mg Tablet) 25 mg PO DAILY [facility]; Protocol Last Admin: 10/20/23 07:58 Dose: 25 mg Documented By: REYNALDO Methylprednisolone Sodium Succinate (Methylprednisolone Sod Succ 40 Mg/Ml Vial) 40 mg IVPUSH Q12H [facility] Last Admin: 10/20/23 06:14 Dose: 40 mg Documented By: SCOTTIE Ondansetron HCl (Ondansetron Hcl 4 Mg/2 Ml Vial) 4 mg IVPUSH Q8H PRN PRN Reason: Nausea and Vomiting Propranolol HCl (Propranolol Hcl La 60 Mg Cap.Sa.24h) 60 mg PO DAILY [facility]; Protocol Last Admin: 10/20/23 07:58 Dose: 60 mg Documented By: REYNALDO Senna (Sennosides 8.6 Mg Tablet) 17.2 mg PO BEDTIME PRN PRN Reason: Constipation Sodium Chloride (0.9 % Sodium Chloride Flush 3 Ml Syringe) 3 ml IVFLUSH QSHIFT [facility] Last Admin: 10/20/23 08:01 Dose: 3 ml Documented By: REYNALDO Labs 10/18/23 05:20 10/18/23 05:20 Assessment and Plan (1) Acute hypoxemic respiratory failure: Status: Acute (2) Hypertension: Status: Acute Assessment and Plan: 53-year-old male with history of hypertension, hyperlipidemia, asthma, GERD, anxiety, atrial septal aneurysm, and hyperostosis of the parieto-occipital region (dx 40 years ago) with chronic daily headaches admitted for further management of asthma exacerbation with acute hypoxemic respiratory failure and hypertensive urgency. mild intermittent asthma exacerbation with acute hypoxemic respiratory failure in setting of enetro/rhinovirus uri. CXR unremarkable,negative for COVID-19, influenza, RSV. plan: continue IV methylprednisolone 40 mg b.i.d.,DuoNebs q.4h while awake,azithromycin,symptomatic management-hycodan, supplemental O2 to maintain oximetry greater than 92% hypertensive controlled:still suboptimal improving continue clonidine 0.3 mg t.i.d, losartan 25 mg daily, propranolol 60 mg daily,added amlodipine , ckd 3: stable range . severe anxiety-continue propranolol, clonidine, sertraline,added ativan prn psych eval. DVT prophylaxis-Lovenox Full code Patient requires inpatient stay for 48-72 hrs for acute asthma exacerbation with hypoxemic respiratory failure requiring supplemental oxygen, IV steroids, DuoNebs as well as close monitoring for decompensation. He will also require close vital signs monitoring due to hypertensive urgency with resumption of home antihypertensive agents. Quality Stroke Does the patient have a stroke diagnosis?: No VTE Prior VTE?: No VTE Risk Level:: Medical - moderate - high VTE Device Contraindication: Treatment Not Indicated VTE Drug Contraindication: N/A - Med Ordered
[2023-10-20] MEDS: amLODIPine Besylate 2.5 MG TABLET PO (11:59)
--- NOTE | 2023-10-20 14:16 | MHC.CM.PN ---
EMR reviewed and per MD rounds, pt is not medically cleared for D/C due to management of asthma exacerbation.
[2023-10-20] MEDS: guaiFENesin LA 600 MG TAB.ER.12H PO (16:38)
[2023-10-20] MEDS: Baclofen 10 MG TABLET PO (16:38)
[2023-10-20] MEDS: Gabapentin 400 MG CAPSULE PO (20:08)
[2023-10-20] MEDS: Enoxaparin Sodium 40 MG/0.4 ML SYRINGE SUBCUT (20:11)
[2023-10-20] MEDS: Acetaminophen 325 MG TABLET 650 MG PO (20:12)
[2023-10-20] MEDS: amLODIPine Besylate 10 MG TABLET PO (22:09)
[2023-10-21] VITALS (18 sets, daily range): BP systolic 140–200; BP diastolic 82–110; PULSE 81–99; RESP 18–20; TEMP 35.9–37.4; O2SAT 95–99
[2023-10-21] MEDS: methylPREDNISolone Sod Succ 40 MG/ML VIAL IVPUSH ×2 (05:37→17:08)
--- NOTE | 2023-10-21 06:33 | PC.NURSE ---
Pt blood pressure at start of shift approx 200/128. Mild headache per pt 09/10. MD notified. Scheduled antihypertensive given with prn tylenol. After about one hour, BP reassessment showed a decrease to about 190/100. MD notified and added amlodipine 10mg at bedtime. Dose given, BP reassessed at 150/90. No further orders. Pt headache resolved and with no further complaints. remains fully alert and oriented and ambulatory. call mayo in reach. plan of care ongoing
[2023-10-21] MEDS: Albuterol/Iprat 2.5/0.5MG 3 ML AMPUL.NEB INHALE ×4 (08:23→19:25)
[2023-10-21] MEDS: Propranolol HCL LA 60 MG CAP.SA.24H PO (08:53)
[2023-10-21] MEDS: Loratadine 10 MG TABLET PO (08:54)
[2023-10-21] MEDS: Azithromycin 500 MG TABLET PO (08:54)
[2023-10-21] MEDS: cloNIDine HCL 0.1 MG TABLET 0.3 MG PO ×3 (08:54→20:37)
[2023-10-21] MEDS: Losartan Potassium 25 MG TABLET PO (08:54)
[2023-10-21] MEDS: 0.9 % Sodium Chloride Flush 3 ML SYRINGE IVFLUSH ×2 (08:55→15:51)
[2023-10-21] MEDS: NIFEdipine ER 60 MG TAB.ER.24 PO (10:20)
--- NOTE | 2023-10-21 15:20 | MHC.CM.PN ---
Per MD rounds no discharge today. BP elevated. Medications changes have been made. DP resume [employer] services. Patient will arrange for transportation home.
--- NOTE | 2023-10-21 15:52 | HO.PM.IMPN ---
Subjective Subjective Date of Service: 10/21/23 Interval History: asthma excerebation,uncontrolled htn Review of Systems sob seems to be imporved bp was in 200;s overnight no chest pain or sob Physical Exam Vital Signs: Vital Signs: Last Vital Signs Temp 98.9 F 10/21/23 15:43 Pulse 91 10/21/23 15:43 Resp 20 10/21/23 15:43 BP 180/110 H 10/21/23 15:43 Pulse Ox 99 10/21/23 15:43 O2 Del Method Room Air 10/21/23 15:43 O2 Flow Rate 1 10/18/23 05:35 BMI result Body Mass Index 25.1 Appearance: Alert.? Oriented X3.? not in distress. cvs: rrr, [id number] . res: clear to auscultation ,no rhonchii or wheezing abd: no rebound or guarding ,nt, bs present. ext pulses present , no cyanosis . neuro: axo3 , nonfocal. Objective Data Active Medications Acetaminophen (Acetaminophen 325 Mg Tablet) 650 mg PO Q6H PRN PRN Reason: Pain, Mild (Pain Scale 1-3) Last Admin: 10/20/23 20:12 Dose: 650 mg Documented By: GIL Albuterol/Ipratropium (Albuterol/Iprat 2.5/0.5mg 3 Ml Ampul.Neb) 3 ml INHALE RQ4H WHILE AWAKE [facility] Last Admin: 10/21/23 15:38 Dose: 3 ml Documented By: STEPHANIE Albuterol/Ipratropium (Albuterol/Iprat 2.5/0.5mg 3 Ml Ampul.Neb) 3 ml INHALE Q3H PRN PRN Reason: Sob Azithromycin (Azithromycin 500 Mg Tablet) 500 mg PO Q24H [facility] Last Admin: 10/21/23 08:54 Dose: 500 mg Documented By: WEN Clonidine HCl (Clonidine Hcl 0.1 Mg Tablet) 0.3 mg PO TID [facility]; Protocol Last Admin: 10/21/23 08:54 Dose: 0.3 mg Documented By: WEN Enoxaparin Sodium (Enoxaparin Sodium 40 Mg/0.4 Ml Syringe) 40 mg SUBCUT Q24H [facility] Last Admin: 10/20/23 20:11 Dose: 40 mg Documented By: GIL Famotidine (Famotidine 20 Mg Tablet) 40 mg PO BID PRN PRN Reason: acid reflux Last Admin: 10/18/23 09:11 Dose: 40 mg Documented By: AISHA Gabapentin (Gabapentin 400 Mg Capsule) 400 mg PO BEDTIME JOSE D Last Admin: 10/20/23 20:08 Dose: 400 mg Documented By: GIL Guaifenesin/Codeine Phosphate (Guaifen/Codeine Sf 200/20/10ml 10 Ml Liquid) 10 ml PO Q4H PRN PRN Reason: Cough Last Admin: 10/20/23 08:15 Dose: 10 ml Documented By: REYNALDO Loratadine (Loratadine 10 Mg Tablet) 10 mg PO DAILY [facility] Last Admin: 10/21/23 08:54 Dose: 10 mg Documented By: WEN Lorazepam (Lorazepam 0.5 Mg Tablet) 0.5 mg PO Q12H PRN PRN Reason: Anxiety Losartan Potassium (Losartan Potassium 25 Mg Tablet) 25 mg PO DAILY [facility]; Protocol Last Admin: 10/21/23 08:54 Dose: 25 mg Documented By: WEN Methylprednisolone Sodium Succinate (Methylprednisolone Sod Succ 40 Mg/Ml Vial) 40 mg IVPUSH Q12H [facility] Last Admin: 10/21/23 05:37 Dose: 40 mg Documented By: GIL Nifedipine (Nifedipine Er 60 Mg Tab.Er.24) 60 mg PO DAILY [facility]; Protocol Last Admin: 10/21/23 10:20 Dose: 60 mg Documented By: WEN Ondansetron HCl (Ondansetron Hcl 4 Mg/2 Ml Vial) 4 mg IVPUSH Q8H PRN PRN Reason: Nausea and Vomiting Propranolol HCl (Propranolol Hcl La 60 Mg Cap.Sa.24h) 60 mg PO DAILY [facility]; Protocol Last Admin: 10/21/23 08:53 Dose: 60 mg Documented By: WEN Senna (Sennosides 8.6 Mg Tablet) 17.2 mg PO BEDTIME PRN PRN Reason: Constipation Sodium Chloride (0.9 % Sodium Chloride Flush 3 Ml Syringe) 3 ml IVFLUSH QSHIFT [facility] Last Admin: 10/21/23 08:55 Dose: 3 ml Documented By: WEN Labs 10/18/23 05:20 10/18/23 05:20 Assessment and Plan (1) Acute hypoxemic respiratory failure: Status: Acute (2) Hypertension: Status: Acute Assessment and Plan: 53-year-old male with history of hypertension, hyperlipidemia, asthma, GERD, anxiety, atrial septal aneurysm, and hyperostosis of the parieto-occipital region (dx 40 years ago) with chronic daily headaches admitted for further management of asthma exacerbation with acute hypoxemic respiratory failure and hypertensive urgency. mild intermittent asthma exacerbation with acute hypoxemic respiratory failure in setting of enetro/rhinovirus uri. CXR unremarkable,negative for COVID-19, influenza, RSV. plan: continue DuoNebs q.4h while awake,azithromycin,symptomatic management-hycodan,switch to po steriods, supplemental O2 to maintain oximetry greater than 92% hypertensive controlled:in 200;s last night continue clonidine 0.3 mg t.i.d, losartan 25 mg daily, propranolol 60 mg daily,added procardia ,renal us doppler . bp somewhat improving , we will add iv hydralazine prn for bp nephrology eval. ckd 3: stable range . severe anxiety-continue propranolol, clonidine, sertraline,added ativan prn psych eval. DVT prophylaxis-Lovenox Full code Patient requires inpatient stay for acute asthma exacerbation with hypoxemic respiratory failure requiring supplemental oxygen, IV steroids, DuoNebs as well as close monitoring for decompensation. He will also require close vital signs monitoring due to hypertensive urgency with resumption of home antihypertensive agents. Quality Stroke Does the patient have a stroke diagnosis?: No VTE Prior VTE?: No VTE Risk Level:: Medical - moderate - high VTE Device Contraindication: Treatment Not Indicated VTE Drug Contraindication: N/A - Med Ordered
[2023-10-21] MEDS: hydrALAZINE HCl 20 MG/ML VIAL 10 MG IVPUSH (16:06)
--- NOTE | 2023-10-21 19:27 | P.CONNP_ITS ---
History of Present Illness Reason for Consult Consult date: 10/21/23 Chief Complaint Chief complaint: Asthma exacerbation, hypoxia, hypertensive urgency History of Present Illness Narrative: 53-year-old male presented to the ED for evaluation of shortness of breath and wheezing that has been ongoing for 3 days. He was seen in urgent care 2 days ago and prescribed prednisone and azithromycin. However, symptoms worsened acutely prompting him to present to the ED. Denies fevers, chills but does endorse nonproductive cough. No chest pain. He is known to have CKD and hypertension. Since arrival, patient has been hypertensive.Was negative for COVID-19, RSV, influenza. Chest x-ray unremarkable. He was be admitted for further management of acute asthma exacerbation with hypoxemic respiratory failure and hypertensive urgency. Nephrology has been consulted to assist in his clinical care during his current hospital stay Review of Systems Review of Systems Yes all other systems are reviewed and are negative PMF Past Medical History Medical History Mild recurrent major depression Atrial septal aneurysm [id number] kidney injury Anxiety Benign essential hypertension Tachycardia GERD (gastroesophageal reflux disease) Headache Hyperostosis Severe depression Moderate asthma Essential hypertension Mixed hyperlipidemia Family History Family History Father Seizures Mother No problems noted. Surgical History Surgical History History of hernia surgery Social History Social History Household Members: Family Housing: Apartment Housing Other:: [facility] Do you presently have visiting nurse or other home services: Yes Alcohol intake: never Patient Tobacco Use Status: Former Tobacco user e-Cigarette/Vaping Use: Never Used Second Hand Smoke Exposure: No service: No Current occupational status: disabled Cognitive needs: No Hearing needs: No Vision needs: Yes Meds Allergies Allergy/AdvReac Type Severity Reaction Status Date / Time sumatriptan Allergy Mild headaches Verified 10/17/23 16:28 nifedipine AdvReac Intermediate anxious Verified 07/18/23 15:29 lisinopril AdvReac Mild Anxiety Verified 07/18/23 15:29 Active Medications: Current Medications Acetaminophen (Acetaminophen 325 Mg Tablet) 650 mg PO Q6H PRN PRN Reason: Pain, Mild (Pain Scale 1-3) Last Admin: 10/20/23 20:12 Dose: 650 mg Albuterol/Ipratropium (Albuterol/Iprat 2.5/0.5mg 3 Ml Ampul.Neb) 3 ml INHALE RQ4H WHILE AWAKE JOSE D Last Admin: 10/21/23 19:25 Dose: 3 ml Albuterol/Ipratropium (Albuterol/Iprat 2.5/0.5mg 3 Ml Ampul.Neb) 3 ml INHALE Q3H PRN PRN Reason: Sob Azithromycin (Azithromycin 500 Mg Tablet) 500 mg PO Q24H [facility] D Last Admin: 10/21/23 08:54 Dose: 500 mg Clonidine HCl (Clonidine Hcl 0.1 Mg Tablet) 0.3 mg PO TID [facility]; Protocol Last Admin: 10/21/23 15:50 Dose: 0.3 mg Enoxaparin Sodium (Enoxaparin Sodium 40 Mg/0.4 Ml Syringe) 40 mg SUBCUT Q24H [facility] Last Admin: 10/20/23 20:11 Dose: 40 mg Famotidine (Famotidine 20 Mg Tablet) 40 mg PO BID PRN PRN Reason: acid reflux Last Admin: 10/18/23 09:11 Dose: 40 mg Gabapentin (Gabapentin 400 Mg Capsule) 400 mg PO BEDTIME JOSE D Last Admin: 10/20/23 20:08 Dose: 400 mg Guaifenesin/Codeine Phosphate (Guaifen/Codeine Sf 200/20/10ml 10 Ml Liquid) 10 ml PO Q4H PRN PRN Reason: Cough Last Admin: 10/20/23 08:15 Dose: 10 ml Hydralazine HCl (Hydralazine Hcl 20 Mg/Ml Vial) 10 mg IVPUSH Q6H PRN; Protocol PRN Reason: htn Last Admin: 10/21/23 16:06 Dose: 10 mg Loratadine (Loratadine 10 Mg Tablet) 10 mg PO DAILY [facility] Last Admin: 10/21/23 08:54 Dose: 10 mg Lorazepam (Lorazepam 0.5 Mg Tablet) 0.5 mg PO Q12H PRN PRN Reason: Anxiety Losartan Potassium (Losartan Potassium 25 Mg Tablet) 25 mg PO DAILY [facility]; Protocol Last Admin: 10/21/23 08:54 Dose: 25 mg Methylprednisolone Sodium Succinate (Methylprednisolone Sod Succ 40 Mg/Ml Vial) 40 mg IVPUSH Q12H [facility] Last Admin: 10/21/23 17:08 Dose: 40 mg Nifedipine (Nifedipine Er 60 Mg Tab.Er.24) 60 mg PO DAILY [facility]; Protocol Last Admin: 10/21/23 10:20 Dose: 60 mg Ondansetron HCl (Ondansetron Hcl 4 Mg/2 Ml Vial) 4 mg IVPUSH Q8H PRN PRN Reason: Nausea and Vomiting Propranolol HCl (Propranolol Hcl La 60 Mg Cap.Sa.24h) 60 mg PO DAILY [facility]; Protocol Last Admin: 10/21/23 08:53 Dose: 60 mg Senna (Sennosides 8.6 Mg Tablet) 17.2 mg PO BEDTIME PRN PRN Reason: Constipation Sodium Chloride (0.9 % Sodium Chloride Flush 3 Ml Syringe) 3 ml IVFLUSH QSHIFT [facility] Last Admin: 10/21/23 15:51 Dose: 3 ml Home Medications ?Medication ?Instructions ?Recorded ?Confirmed ?Last Taken ?Type clonidine HCl 0.3 mg tablet 0.3 mg PO TID 07/18/23 10/17/23 10/17/23 History 1999 famotidine 40 mg tablet 40 mg PO BID PRN Acid Reflux 10/17/23 10/17/23 10/17/23 History 40 propranolol 60 mg capsule,24 60 mg PO DAILY 10/17/23 10/17/23 Unknown History hr,extended release gabapentin 400 mg capsule 400 mg PO BEDTIME 10/18/23 10/18/23 10/16/23 History sertraline 25 mg tablet 25 mg PO DAILY PRN depression 10/18/23 10/18/23 Unknown History Physical Exam Vital Signs: Last Vital Signs Temp 98.9 F 10/21/23 15:43 Pulse 91 10/21/23 19:25 Resp 20 10/21/23 19:25 BP 140/84 H 10/21/23 17:08 Pulse Ox 99 10/21/23 15:43 O2 Del Method Room Air 10/21/23 15:43 O2 Flow Rate 1 10/18/23 05:35 BMI result Body Mass Index 25.1 Const General: comfortable and no acute distress Orientation/consciousness: patient oriented x3 HEENT Head: Yes normocephalic Mouth: Normal oral and palatal mucosa present Eyes EOM: EOMs intact bilaterally Neck Neck: Yes supple Resp Auscultation: clear to auscultation bilaterally Cardio Jugular venous distension: no JVD Rate: regular rate GI Palpation (GI): Soft to palpation Auscultation: normal bowel sounds General: Yes no CVA tenderness Back/Spine/Pelvis Back: no CVA tenderness Skin General skin exam: no rashes or lesions noted Neuro General: patient oriented x3 and moves all extremities Extrem General: Yes no pedal edema Results Lab Results 10/18/23 05:20 10/18/23 05:20 Assessment and Plan (1) CKD stage 3a, GFR 45-59 ml/min: Status: Acute (2) Hypertension: Qualifiers: Hypertension type: secondary to other renal disorders Qualified Code(s): I15.1 - Hypertension secondary to other renal disorders Status: Acute Plan Known to have CKD 3- renal functions close to baseline No clinical suspicion of thrombotic microangiopathy yet Doppler renal artery pending; On ARB; Added Nifedipine Urine protein pending; If renal function/K stable,can increase losartan Needs close follow up with [facility] for continued care after D/C Procedures Date of Service Date of Service: 10/21/23
[2023-10-21] MEDS: Enoxaparin Sodium 40 MG/0.4 ML SYRINGE SUBCUT (20:37)
[2023-10-21] MEDS: Gabapentin 400 MG CAPSULE PO (20:37)
[2023-10-22] VITALS: PULSE 92
[2023-10-22] MEDS: 0.9 % Sodium Chloride Flush 3 ML SYRINGE IVFLUSH ×2 (01:44→08:59)
[2023-10-22 03:58] VITALS: BP 136/93; PULSE 90; RESP 18; TEMP 37; O2SAT 96
[2023-10-22] MEDS: methylPREDNISolone Sod Succ 40 MG/ML VIAL IVPUSH (06:09)
[2023-10-22 07:19] LABS: Anion Gap 11 (12-20); Blood Urea Nitrogen 36 mg/dL (9-16); Calcium 9.3 mg/dL (8.4-10.2); Carbon Dioxide 28 mmol/L (22-29); Chloride 102 mmol/L (96-108); Creatinine Clr Calc Pharmacy 64.2; Estimated Glomerular Filt Rate 57; Glucose Random 134 mg/dL (60-115); Sodium 137 mmol/L (135-145)
[2023-10-22 07:25] LABS: Parathyroid Hormone Intact 56.7 pg/mL (8.7-77.1)
[2023-10-22 07:30] VITALS: BP 160/90; PULSE 84; RESP 18; TEMP 36.7; O2SAT 95
[2023-10-22 07:35] LABS: Vitamin D 25-OH Total 71.7 ng/mL (>30)
[2023-10-22 07:44] VITALS: PULSE 89; RESP 18; O2SAT 97
[2023-10-22] MEDS: Albuterol/Iprat 2.5/0.5MG 3 ML AMPUL.NEB INHALE ×2 (07:44→11:34)
[2023-10-22] MEDS: Azithromycin 500 MG TABLET PO (08:59)
[2023-10-22] MEDS: Propranolol HCL LA 60 MG CAP.SA.24H PO (08:59)
[2023-10-22] MEDS: NIFEdipine ER 60 MG TAB.ER.24 PO (08:59)
[2023-10-22] MEDS: cloNIDine HCL 0.1 MG TABLET 0.3 MG PO (08:59)
[2023-10-22] MEDS: Losartan Potassium 25 MG TABLET PO ×2 (08:59→09:34)
[2023-10-22] MEDS: Loratadine 10 MG TABLET PO (08:59)
[2023-10-22 10:16] LABS: Creatinine Urine 47.75 mg/dL; Protein/Creatinine Ratio, Ur 0.25 (<0.2); Total Protein Urine Random 12 mg/dL (<12)
[2023-10-22 11:08] VITALS: BP 138/89; PULSE 93; RESP 18; TEMP 37.1; O2SAT 95
[2023-10-22 11:37] VITALS: PULSE 81; RESP 18; O2SAT 98
--- NOTE | 2023-10-22 12:44 | P.DS_ITS ---
DS: Providers Provider Date of Service: 10/22/23 Date of admission: 10/17/23 20:37 Date of discharge: 10/22/23 Primary care physician: Greta Olivera MD Consults: 10/18/23 09:09 Consult to Psychiatry Routine Consulting Provider: Psych Covering Reason for consultation: Panic dis -complicating asthma excerebation Has provider been notified: No 10/21/23 08:47 Consult to Nephrology Routine Consulting Provider: [facility] Reason for consultation: Uncontrolled htn Has provider been notified: No Attending physician on discharge: Lanette Cannon Discharging clinician: Lanette Cannon DS: Diagnosis Discharge Diagnosis (1) CKD stage 3a, GFR 45-59 ml/min: Status: Acute (2) Hypertension: Status: Acute DS: Summary Hospital Course Hospital Course: 53-year-old male with history of hypertension, hyperlipidemia, asthma, GERD, anxiety, atrial septal aneurysm, and hyperostosis of the parieto-occipital region (dx 40 years ago) with chronic daily headaches presented to the ED earlier today for evaluation of shortness of breath and wheezing that has been ongoing for 3 days. He was seen in urgent care 2 days ago and prescribed prednisone and azithromycin. However, symptoms worsened acutely this morning prompting him to present to the ED. Denies fevers, chills but does endorse nonproductive cough. No chest pain. Reports his mother with whom he lives and cares for is sick with similar symptoms. He states he has not taken any of his medications today including his blood pressure medications such as clonidine. Since arrival, patient has been hypertensive to 198/128, tachycardic to 103, tachypneic to 22. Did develop hypoxia to 87% while in the ED now on 2 L supplemental O2 maintaining oximetry 94-95%. He is afebrile. There is leukocytosis of 13.7. Stable normocytic anemia with H/H 11.0/31.7%. Electrolyte levels normal. Troponin undetectable. CRP 1.75. BNP 275. VBG with pH 7.50, pCO2 34, bicarb 27. Negative for COVID-19, RSV, influenza. Chest x-ray unremarkable. In the ED, has received DuoNeb x2, 1 mg lorazepam, 10 mg labetalol, 25 mg losartan, 2 g IV magnesium, 1 L IV NS, a total of 0.4 mg clonidine, and 80 mg IV methylprednisolone. He will be admitted for further management of acute asthma exacerbation with hypoxemic respiratory failure and hypertensive urgency. Of note, pt reports he takes an unkown medication for his headaches and is concerned he will begin to withdraw without the medication. He is unsure of the name. There is no record of any narcotic prescription on [facility]. Will collect UTox. Hospital course: Patient came with mild intermittent asthma exacerbation started on IV steroids, nebs, azithromycin for possible superimposed bronchitis: Patient is started on IV steroids, nebs, azithromycin, loratadine and cough syrup-patient shortness of breath seems to be improved-patient will be going home with loratadine, cough syrup, p.o. steroids 40 mg daily for 4 days, azithromycin 250 mg p.o. daily for 4 days. Uncontrolled hypertension, possible CKD stage 3: Mild proteinuria. Patient home medications clonidine, propranolol, losartan continued--blood pressure was still elevated so losartan adjusted to 50 mg daily, added Procardia 30 mg daily. Patient seems to be improved significantly blood pressure lerma, in additionRenal Doppler was done which shows questionable narrowing left renal artery vs dec flow ?(official report is pending). Discussed with Nephrology patient is to follow-up BMP and further management out patiently with PCP and Nephrology. Anxiety: Patient seems stable with anxiety continue home medications. Follow-up with outpatient psych-for further management. plan: Complete p.o. steroids 40 mg daily for 4 days, azithromycin 250 mg p.o. daily for 4 days. Continue nifedipine 30 mg daily, adjusted losartan to 50 mg daily Monitor BP out patient closely-his medications for blood pressure can be adjusted out patiently as per his blood pressure. If blood pressure drops below 100mmg-consider stopping nifedipine outpatient and got nearest emergency room. Above management discussed with the patient in detail length he understand and in agreement with the above plan, time spent 45 minute. Time Attestation Total time managing care of this patient today: 45 mintues. Discharge Coordination Time (in mins): 45 min Quality: Safe Use of Opioids Does Pt have an Active Cancer Diagnosis on the Problem List?: No Quality: Stroke Does the patient have a stroke diagnosis?: No Physical Exam Vital Signs: Vital Signs: Last Vital Signs Temp 98.8 F 10/22/23 11:08 Pulse 81 10/22/23 11:37 Resp 18 10/22/23 11:37 BP 138/89 10/22/23 11:08 Pulse Ox 95 10/22/23 11:08 O2 Del Method Room Air 10/22/23 11:08 O2 Flow Rate 1 10/18/23 05:35 BMI result Body Mass Index 25.1 Appearance: Alert.? Oriented X3.? not in distress. cvs: rrr, [id number] . res: clear to auscultation ,no rhonchii or wheezing abd: no rebound or guarding ,nt, bs present. ext pulses present , no cyanosis . neuro: axo3 , nonfocal DS: Data Data Completed and Pending Labs on day of discharge: Laboratory Results - last 24 hr 10/22/23 10/22/23 06:30 09:40 Hold Purple Top SEE NOTE Sodium 137 Potassium 4.0 Chloride 102 Carbon Dioxide 28 Anion Gap 11 L BUN 36 H Creatinine 1.30 Estim Creat Clear Calc 64.2 Estimated GFR 57 Random Glucose 134 H Calcium 9.3 25-OH Vitamin D Total 71.7 PTH Intact 56.7 U Random Total Protein 12 Urine Creatinine 47.75 Protein/Creatinin Ratio 0.25 H Imaging Chest x-ray: Radiologist's impression: ITS Impressions Chest X-Ray 10/17/23 16:40 IMPRESSION: No acute cardiopulmonary disease. Discharge Plan Discharge Anticipated Discharge Date/Time: 10/22/23 11:09 Patient Disposition: Home, Self-Care Discharge Diagnosis: uncontrolled htn , asthma exacerbation, anxiety, questable Narrowing of left renal artery Referrals: Travis Lynn MD [Physician] - 2 Weeks Greta Ribeiro MD [Primary Care Provider] - 1 Week Discharge Medications: New nifedipine [Procardia XL] 30 mg tablet extended release 24hr 30 mg PO DAILY Qty: 30 0RF loratadine 10 mg Tablet 10 mg PO DAILY Qty: 10 0RF azithromycin 500 mg Tablet 250 mg PO Q24H Qty: 2 0RF prednisone 20 mg Tablet 40 mg PO DAILY Qty: 8 0RF Robitussin Cough-Sore Throat 325-10 mg/10 mL liquid 20 ml PO Q4H PRN (Reason: cough) Qty: 118 0RF Continued albuterol sulfate [Ventolin HFA] 90 mcg/actuation HFA aerosol inhaler 2 puff inhalation Q6H PRN (Reason: shortness of breath or wheezing) 30 Days Qty: 18 0RF ipratropium-albuterol 0.5 mg-3 mg(2.5 mg base)/3 mL solution for nebulization 3 ml inhalation Q6-8H PRN (Reason: shortness of breath) Qty: 180 0RF famotidine 40 mg tablet 40 mg PO BID PRN (Reason: Acid Reflux) propranolol 60 mg capsule,extended release 24 hr 60 mg PO DAILY sertraline 25 mg tablet 25 mg PO DAILY PRN (Reason: depression) gabapentin 400 mg Capsule 400 mg PO BEDTIME clonidine HCl 0.3 mg tablet 0.3 mg PO TID (DME) nebulizers [VixOne Nebulizer-Adult Mask] Misc See Rx Instructions .Route Qty: 1 0RF Rx Instructions: As directed Changed losartan 25 mg tablet 50 mg PO DAILY 90 Days Qty: 90 0RF Discharge Orders: Discharge Order (Routine); Ordered 10/22/23 Ordered By: Lanette aCnnon Diet: Advance to usual diet Activity on Discharge: As tolerated Stand Alone Forms: Patient Portal Discharge page Print Language: French Other Ambulatory Orders: Basic Metabolic Panel (Routine) Timeframe: 1 Week Facility: [facility] - Location: Laboratory Ordered By: Lanette Cannon Care Plan Goals: Patient came with mild intermittent asthma exacerbation started on IV steroids, nebs, azithromycin for possible superimposed bronchitis: Patient is started on IV steroids, nebs, azithromycin, loratadine and cough syrup-patient shortness of breath seems to be improved-patient will be going home with loratadine, cough syrup, p.o. steroids 40 mg daily for 4 days, azithromycin 250 mg p.o. daily for 4 days. Uncontrolled hypertension, possible CKD stage 3: Mild proteinuria. Patient home medications clonidine, propranolol, losartan continued--blood pressure was still elevated so losartan adjusted to 50 mg daily, added Procardia 30 mg daily. Patient seems to be improved significantly blood pressure lerma, in additionRenal Doppler was done which shows questionable narrowing left renal artery vs dec flow ?(official report is pending). Discussed with Nephrology patient is to follow-up BMP and further management out patiently with PCP and Nephrology. Anxiety: Patient seems stable with anxiety continue home medications. Follow-up with outpatient psych-for further management. Health Concerns: As above. Plan of Treatment: Complete p.o. steroids 40 mg daily for 4 days, azithromycin 250 mg p.o. daily for 4 days. Continue nifedipine 30 mg daily, adjusted losartan to 50 mg daily Monitor BP out patient closely-his medications for blood pressure can be adjusted out patiently as per his blood pressure. If blood pressure drops below 100mmg-consider stopping nifedipine outpatient and got nearest emergency room. Assessment: As above.
--- NOTE | 2023-10-22 12:57 | MHC.CM.PN ---
Patient has been medically cleared for dc to home today, self care. CM met with Patient at bedside and addressed IMM with him (original was given to Patient and a copy has been placed on the chart).
== END 2023-10-22 13:58 | disposition home or self-care (01) | DRG 202 ==
LOC: HO.ED 20:02 → HO.EDOVER 20:55 → HO.IMC 10-18 07:47
PROVIDERS: Internal Medicine Nephrology; Admitting Provider Physician Assistant; Emergency Provider Emergency Medicine; PCP Internal Medicine; Visit Provider Internal Medicine
DX: J45.21 Mild intermittent asthma with (acute) exacerbation (principal); J96.01 Acute respiratory failure with hypoxia; F32.1 Major depressive disorder, single episode, moderate; J40 Bronchitis, not specified as acute or chronic; M85.2 Hyperostosis of skull; F41.0 Panic disorder [episodic paroxysmal anxiety]; R51.9 Headache, unspecified; N18.31 Chronic kidney disease, stage 3a; I16.0 Hypertensive urgency; B97.89 Other viral agents as the cause of diseases classified elsewhere; B97.10 Unspecified enterovirus as the cause of diseases classified elsewhere; I12.9 Hypertensive chronic kidney disease with stage 1 through stage 4 chronic kidney disease, or unspecified chronic kidney disease; T46.5X6A Underdosing of other antihypertensive drugs, initial encounter; D63.1 Anemia in chronic kidney disease; Z20.822 Contact with and (suspected) exposure to COVID-19; Z87.891 Personal history of nicotine dependence; Z79.899 Other long term (current) drug therapy
CPT/HCPCS: 0241U; 36415; 71046; 76775; 80048; 80076; 80307; 82306; 82570; 82803; 83735; 83880; 83970; 84156; 84484; 85025; 86140; 87633; 93005; 93975; 94640; 99285; J0360; J1650; J1920; J2060; J2920; J2930; J3475

== ENCOUNTER → 2023-10-17 16:06 | Outpatient (BNV) | payer OTHER, SELFPAY | PROVIDERS: Admitting Provider Physician Assistant; Emergency Provider Emergency Medicine; PCP Internal Medicine; Visit Provider Internal Medicine | DX: I10 Essential (primary) hypertension (principal); I51.7 Cardiomegaly | CPT/HCPCS: 93010 ==

== ENCOUNTER → 2023-10-17 20:37 | Outpatient (BNV) | payer OTHER, SELFPAY | PROVIDERS: Admitting Provider Physician Assistant; Emergency Provider Emergency Medicine; PCP Internal Medicine; Visit Provider Social Worker | DX: F32.1 Major depressive disorder, single episode, moderate (principal); F41.0 Panic disorder [episodic paroxysmal anxiety] | CPT/HCPCS: 99232 ==

== ENCOUNTER → 2023-10-17 20:37 | Outpatient (BNV) | payer OTHER, SELFPAY | PROVIDERS: Admitting Provider Physician Assistant; Emergency Provider Emergency Medicine; PCP Internal Medicine; Visit Provider Internal Medicine Nephrology | DX: I12.9 Hypertensive chronic kidney disease with stage 1 through stage 4 chronic kidney disease, or unspecified chronic kidney disease (principal); N18.31 Chronic kidney disease, stage 3a | CPT/HCPCS: 99223 ==

== ENCOUNTER → 2023-10-17 20:37 | Outpatient (BNV) | payer OTHER, SELFPAY | PROVIDERS: Admitting Provider Physician Assistant; Emergency Provider Emergency Medicine; PCP Internal Medicine; Visit Provider Internal Medicine | DX: N18.31 Chronic kidney disease, stage 3a (principal); I15.1 Hypertension secondary to other renal disorders | CPT/HCPCS: 99223; 99232; 99239 ==

== ENCOUNTER 2023-11-09 12:36 | Outpatient (AMB) | payer OTHER, SELFPAY ==
[2023-11-09 12:50] VITALS: BP 142/90; PULSE 86; O2SAT 98; BMI 23.5
--- NOTE | 2023-11-09 12:50 | MHC.PC.OV ---
Vital Signs 11/09/23 12:50 Height 5 ft 9 in Weight 159 lb BMI 23.5 BP 142/90 H Blood Pressure Location Lt brachial Position Sitting Pulse 86 Pulse Source Pulse Oximeter Pulse Oximetry (%) 98 Oxygen Delivery Method Room Air Intake Visit Reasons: [facility] [place] 10/17/23 Intake Note: Patient here for HDF from [facility] [place] 10/17/23 breathing complications Raw Products Director Required: No Accompanied by: Self / Same As Patient Allergies sumatriptan Allergy (Mild, Verified 11/09/23 13:01) headaches nifedipine Adverse Reaction (Intermediate, Verified 11/09/23 13:01) anxious lisinopril Adverse Reaction (Mild, Verified 11/09/23 13:01) Anxiety Medication List - Last Reconciled 11/09/23 by Greta Olivera MD clonidine HCl 0.3 mg PO TID famotidine 40 mg PO BID PRN gabapentin 400 mg PO BEDTIME ipratropium-albuterol 0.5 mg-3 mg(2.5 mg base)/3 mL 3 mL inhalation Q6-8H PRN loratadine 10 mg PO DAILY losartan 50 mg (2 x 25 mg) PO DAILY 90 days nebulizers (VixOne Nebulizer-Adult Mask) As directed nifedipine ER (Procardia XL) 30 mg PO DAILY propranolol ER 60 mg PO DAILY sertraline 25 mg PO DAILY PRN Ventolin HFA 90 mcg/actuation (albuterol sulfate) 2 puffs inhalation Q6H PRN 30 days NS Tobacco use date assessed: 07/18/23 Dental Screening Dental Screen Date: 07/18/23 HPI HPI Comments History of Present Illness Details This is a 53-year-old male with hypertension, mild recurrent major depression, moderate persistent asthma, chronic kidney disease stage 3a and GERD that comes today for follow-up on his conditions. Blood pressure stable. Depression well controlled with SSRIs. Use rescue inhaler almost every day and was just hospitalized for asthma exacerbation with discharge date 10/22/2023. I will start him on Trelegy and refer him to pulmonology. He also has chronic kidney disease that has improved with last GFR being 57 and will see nephrology today. GERD stable with Pepcid. No chest pain or shortness of breath. [facility] Medical History (Updated 11/09/23 @ 13:41 by Greta Olivera MD) Mild recurrent major depression Acute hypoxemic respiratory failure Moderate major depression Atrial septal aneurysm Clofd-fs-mjtpzkr kidney injury Anxiety Benign essential hypertension Tachycardia GERD (gastroesophageal reflux disease) Headache Hyperostosis Severe depression Moderate asthma Essential hypertension Mixed hyperlipidemia Surgical History History of hernia surgery Family History Father Seizures Mother No problems noted. Social History Household Members: Family Housing: Apartment Housing Other:: [facility] [address] Do you presently have visiting nurse or other home services: Yes Alcohol intake: never Patient Tobacco Use Status: Former Tobacco user e-Cigarette/Vaping Use: Never Used Second Hand Smoke Exposure: No service: No Current occupational status: disabled Cognitive needs: No Hearing needs: No Vision needs: Yes Questionnaire Thrive Questionnaire Date Thrive assessed: 10/18/23 KHRIS-7 AMB Questionnaire KHRIS-7 Date KHRIS - 7 assessed: 07/18/23 Source: Developed by Drs. Genaro Vásquez, Cindy Chávez, Remington Colvin and colleagues, with an educational kalli from [employer]. Review of Systems Const All systems reviewed & are unremarkable except as noted in HPI and below Eyes Reports no additional complaints, Denies change in vision and Denies other visual disturbances Card Denies chest pain at rest, Denies chest pain with activity, Denies edema, Denies irregular heart rhythm, Denies claudication, Denies dyspnea, Denies dyspnea on exertion, Denies orthopnea, Denies paroxysmal nocturnal dyspnea and Denies slow heart rate Resp Denies cough, Denies dyspnea and Denies dyspnea on exertion Physical exam (Primary Care) Vital Signs: Last Vital Signs Pulse 86 11/09/23 12:50 BP 142/90 H 11/09/23 12:50 Pulse Ox 98 11/09/23 12:50 Oxygen Delivery Method Room Air 11/09/23 12:50 BMI result Body Mass Index 23.5 Tobacco/Smoking Status: Tobacco use Status Tobacco use date assessed 07/18/23 11/09/23 12:54 Patient Tobacco Use Status Former Tobacco user 11/09/23 12:54 e-Cigarette/Vaping Use Never Used 11/09/23 12:54 Thrive Assessment: Date of Thrive Assessment Date Thrive assessed 10/18/23 11/09/23 12:54 Neck Neck: Yes normal visual inspection and Yes supple Resp Effort & Inspection: normal respiratory effort Auscultation: clear to auscultation bilaterally Cardio Jugular venous distension: no JVD Rate: regular rate Rhythm: regular rhythm Heart sounds: S1 normal heart sound present and S2 normal heart sound present Extrem General: Yes full ROM Assessment and Plan Assessment & Plan (1) Moderate persistent asthma: Code(s): J45.40 - Moderate persistent asthma, uncomplicated Qualifiers: Asthma complication type: uncomplicated Qualified Code(s): J45.40 - Moderate persistent asthma, uncomplicated Plan: Use rescue inhaler as needed. Start Trelegy. Referred to pulmonology. (2) CKD stage 3a, GFR 45-59 ml/min: Code(s): N18.31 - Chronic kidney disease, stage 3a Plan: Avoid NSAIDs. Keep blood pressure less than 130/80. Follow-up with nephrology. (3) Hypertension: Code(s): I10 - Essential (primary) hypertension Qualifiers: Hypertension type: secondary to other renal disorders Qualified Code(s): I15.1 - Hypertension secondary to other renal disorders Plan: Continue nifedipine, clonidine, losartan. Blood pressure goal is equal or less than 130/80. (4) GERD (gastroesophageal reflux disease): Code(s): K21.9 - Gastro-esophageal reflux disease without esophagitis Qualifiers: Esophagitis presence: without esophagitis Qualified Code(s): K21.9 - Gastro-esophageal reflux disease without esophagitis Plan: Continue famotidine. (5) Mild recurrent major depression: Code(s): F33.0 - Major depressive disorder, recurrent, mild Plan: Continue sertraline. Orders: Referrals Open Access Screening Colonoscopy Referral Z12.11 - Encounter for screening for malignant neoplasm of colon Pulmonology Referral J45.40 - Moderate persistent asthma, uncomplicated Medications: New losartan 50 mg PO DAILY 90 days 90 tabs 0RF fhbgwtsdldh-dpgutipju-soekozkk 100-62.5-25 mcg (Trelegy Ellipta) 1 inh inhalation DAILY 28 days 28 ea 0RF Discontinued losartan Discontinued Reason: Patient Completed Course 50 mg (2 x 25 mg) PO DAILY 90 days 90 tabs 0RF I10 - Essential (primary) hypertension Coding Level of Care Code Est Pt Level 4 (31955) Diagnoses Moderate persistent asthma without complication J45.40 Asthma complication type: uncomplicated CKD stage 3a, GFR 45-59 ml/min N18.31 Hypertension secondary to other renal disorders I15.1 Hypertension type: secondary to other renal disorders Gastroesophageal reflux disease without esophagitis K21.9 Esophagitis presence: without esophagitis Mild recurrent major depression F33.0 Time Spent (min) 25
== END 2023-11-09 13:11 | disposition home or self-care (01) ==
PROVIDERS: PCP Internal Medicine; Visit Provider Internal Medicine
DX: I12.9 Hypertensive chronic kidney disease with stage 1 through stage 4 chronic kidney disease, or unspecified chronic kidney disease (principal); J45.40 Moderate persistent asthma, uncomplicated; N18.31 Chronic kidney disease, stage 3a; F33.0 Major depressive disorder, recurrent, mild; K21.9 Gastro-esophageal reflux disease without esophagitis
CPT/HCPCS: 99214

== ENCOUNTER 2023-11-09 15:50 | Outpatient (AMB) | payer OTHER, SELFPAY ==
--- NOTE | 2023-11-09 15:50 | HO.NEPHOV ---
Vital Signs 11/09/23 15:51 Height 5 ft 9 in Weight 151 lb BMI 22.3 BP 140/90 H Blood Pressure Location Lt brachial Position Sitting Pulse 97 Pulse Source Pulse Oximeter Pulse Oximetry (%) 98 Oxygen Delivery Method Room Air Intake Visit Reasons: Hospital discharge FU/ CKD STG 3 Screed Person Required: No Accompanied by: Self / Same As Patient Allergies sumatriptan Allergy (Mild, Verified 11/09/23 15:52) headaches nifedipine Adverse Reaction (Intermediate, Verified 11/09/23 15:52) anxious lisinopril Adverse Reaction (Mild, Verified 11/09/23 15:52) Anxiety HPI Comments Details: I had the privilege of seeing Benjie who is a 53-year-old male who recently presented to the [facility] ER for evaluation of shortness of breath and wheezing that has been ongoing for 3 days. Prior to the ER visit he was seen in urgent care and prescribed prednisone and azithromycin. However, symptoms worsened acutely prompting him to present to the ED. He did not have any fevers, chills but had nonproductive cough without any chest pain. He is known to have CKD and hypertension. patient has been hypertensive during his hospital stay and medications were adjusted.Chest x-ray unremarkable. His serum creatinine has been 1.3 & is seen in follow up [facility] Medical History (Updated 11/09/23 @ 13:41 by Greta Olivera MD) Mild recurrent major depression Acute hypoxemic respiratory failure Moderate major depression Atrial septal aneurysm Bettj-tu-gfqmwrl kidney injury Anxiety Benign essential hypertension Tachycardia GERD (gastroesophageal reflux disease) Headache Hyperostosis Severe depression Moderate asthma Essential hypertension Mixed hyperlipidemia Surgical History History of hernia surgery Family History Father Seizures Mother No problems noted. Social History Household Members: Family Housing: Apartment Housing Other:: [facility] Do you presently have visiting nurse or other home services: Yes Alcohol intake: never Patient Tobacco Use Status: Former Tobacco user e-Cigarette/Vaping Use: Never Used Second Hand Smoke Exposure: No service: No Current occupational status: disabled Cognitive needs: No Hearing needs: No Vision needs: Yes Physical Exam Vital Signs: Last Vital Signs Pulse 97 11/09/23 15:51 Pulse Ox 98 11/09/23 15:51 Oxygen Delivery Method Room Air 11/09/23 15:51 BMI result Body Mass Index 22.3 Const General: comfortable and no acute distress Orientation/consciousness: patient oriented x3 HEENT Head: Yes normocephalic Mouth: Normal oral and palatal mucosa present Eyes EOM: EOMs intact bilaterally Neck Neck: Yes supple Resp Auscultation: clear to auscultation bilaterally Cardio Jugular venous distension: no JVD Rate: regular rate GI Palpation (GI): Soft to palpation Auscultation: normal bowel sounds General: Yes no CVA tenderness Back/Spine/Pelvis Back: no CVA tenderness Skin General skin exam: no rashes or lesions noted Neuro General: patient oriented x3 and moves all extremities Extrem General: Yes no pedal edema Results Reviewed Nephrology Results: Hgb 11.8 g/dl (14.0-18.0) L 10/18/23 WBC 10.1 X10*3/uL (4.8-10.8) 10/18/23 Plt Count 260 X10*3/uL (160-400) 10/18/23 Sodium 137 mmol/L (135-145) 10/22/23 Potassium 4.0 mmol/L (3.3-5.1) 10/22/23 Chloride 102 mmol/L (96-108) 10/22/23 Carbon Dioxide 28 mmol/L (22-29) 10/22/23 BUN 36 mg/dL (9-16) H 10/22/23 Creatinine 1.30 mg/dL (0.5-1.4) 10/22/23 Calcium 9.3 mg/dL (8.4-10.2) 10/22/23 PTH Intact 56.7 pg/mL (8.7-77.1) 10/22/23 Urine Creatinine 47.75 mg/dL 10/22/23 Protein/Creatinin Ratio 0.25 (<0.2) H 10/22/23 Renal US 10/21/23 Assessment & Plan Assessment & Plan (1) CKD stage 3a, GFR 45-59 ml/min: Code(s): N18.31 - Chronic kidney disease, stage 3a Category: Medical (2) Benign essential hypertension: Code(s): I10 - Essential (primary) hypertension Category: Medical Plan Known to have CKD 3- renal functions close to baseline No clinical suspicion of thrombotic microangiopathy Doppler renal artery - No RADHA; On ARB; Added Nifedipine prior to hospital D/C Doesn't have a lot of Urine protein; If renal function/K stable,can increase losartan if needed Labs ordered. No NSAID's. Good hydration; FU 3 M Orders: Orders Blood Urea Nitrogen Today I10 - Essential (primary) hypertension, N18.31 - Chronic kidney disease, stage 3a Electrolytes Today I10 - Essential (primary) hypertension, N18.31 - Chronic kidney disease, stage 3a Creatinine Today I10 - Essential (primary) hypertension, N18.31 - Chronic kidney disease, stage 3a Coding Level of Care Code Est Pt Level 4 (35774) Diagnoses CKD stage 3a, GFR 45-59 ml/min N18.31 Benign essential hypertension I10
[2023-11-09 15:51] VITALS: BP 140/90; PULSE 97; O2SAT 98; BMI 22.3
== END 2023-11-09 16:16 | disposition home or self-care (01) ==
PROVIDERS: PCP Internal Medicine; Visit Provider Internal Medicine Nephrology
DX: N18.31 Chronic kidney disease, stage 3a (principal); I10 Essential (primary) hypertension
CPT/HCPCS: 99214

== ENCOUNTER → 2023-11-09 15:50 | Outpatient (BNVA) | payer OTHER, SELFPAY | PROVIDERS: PCP Internal Medicine; Visit Provider Internal Medicine Nephrology | DX: I12.9 Hypertensive chronic kidney disease with stage 1 through stage 4 chronic kidney disease, or unspecified chronic kidney disease (principal); N18.31 Chronic kidney disease, stage 3a | CPT/HCPCS: 99212 ==

== ENCOUNTER 2024-01-03 13:37 | Outpatient (AMB) | payer OTHER, SELFPAY ==
[2024-01-03 13:43] VITALS: BP 160/90; PULSE 90; O2SAT 97; BMI 25.1
--- NOTE | 2024-01-03 13:43 | MHC.OFFVIS ---
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 The patient is a 53-year-old gentleman known significant asthma in addition to atopic dermatitis. He does follow-up closely with dermatology. He has had multiple exacerbations from his breathing standpoint. The last time she was evaluated in the ER was back in October. He did have a chest x-ray without any significant disease. The patient had a chest x-ray without any acute disease which is reassuring. He did have blood work demonstrating significant eosinophilia 1500. explained to him that this is significantly elevated. Quickly after taking prednisone the eosinophils decreased to 0. His symptoms drastically improved when he is on prednisone. He was placed on Trelegy 100 which seems to be effective in helping his symptoms. He continues to have wheezing on and off throughout the day. He also uses her rescue inhaler typically more than twice a week. Therefore, the patient does have severe persistent asthma. Appears to have atopy with significant chronic rhinitis and what appears to be atopic dermatitis. Will go ahead and request blood work including allergy testing. The patient also needs pulmonary function studies. Will continue to optimize his respiratory therapy. However, if he does not improve then I do believe the biologic therapy will be warranted at that time. [facility] Medical History (Updated 01/03/24 @ 22:58 by Paulo Guido MD) Chronic allergic rhinitis Atopy Allergies Asthma Mild recurrent major depression Acute hypoxemic respiratory failure Moderate major depression Atrial septal aneurysm Phzpl-jv-nzxeahs kidney injury Anxiety Benign essential hypertension Tachycardia GERD (gastroesophageal reflux disease) Headache Hyperostosis Severe depression Moderate asthma Essential hypertension Mixed hyperlipidemia Surgical History History of hernia surgery Family History Father Seizures Mother No problems noted. Social History Household Members: Family Housing: Apartment Housing Other:: [facility] Do you presently have visiting nurse or other home services: Yes Alcohol intake: never Patient Tobacco Use Status: Former Tobacco user e-Cigarette/Vaping Use: Never Used Second Hand Smoke Exposure: No service: No Current occupational status: disabled Cognitive needs: No Hearing needs: No Vision needs: Yes Review of Systems Const Denies fatigue and Denies fever(s) Eyes Reports no additional complaints ENT Reports nasal congestion and Reports nasal discharge Card Denies chest pain Resp Reports cough and Reports wheezing GI Reports dyspepsia and Reports heartburn Musc Reports no additional complaints Skin/Breast Reports rash Endo Denies fatigue Aller/Immun Reports wheezing Physical Exam Vital Signs: Last Vital Signs Pulse 90 01/03/24 13:43 BP 160/90 H 01/03/24 13:43 Pulse Ox 97 01/03/24 13:43 Oxygen Delivery Method Room Air 01/03/24 13:43 BMI result Body Mass Index 25.1 Const General: comfortable HEENT Head: Yes normocephalic Neck Neck: Yes supple Chest Chest palpation & inspection: normal inspection of the chest Resp Effort & Inspection: normal respiratory effort Auscultation: wheezes and diminished lung sounds Cardio Heart sounds: S1 normal heart sound present and S2 normal heart sound present GI Palpation (GI): Soft to palpation Skin Rashes: rashes noted Extrem General: Yes no clubbing, cyanosis or edema Assessment & Plan Assessment & Plan (1) Asthma: Code(s): J45.909 - Unspecified asthma, uncomplicated Category: Medical Qualifiers: Asthma severity: severe Asthma persistence: persistent Asthma complication type: uncomplicated Qualified Code(s): J45.50 - Severe persistent asthma, uncomplicated (2) Allergies: Code(s): T78.40XA - Allergy, unspecified, initial encounter Category: Medical Qualifiers: Encounter type: initial encounter Qualified Code(s): T78.40XA - Allergy, unspecified, initial encounter (3) Atopy: Code(s): Z88.9 - Allergy status to unspecified drugs, medicaments and biological substances Category: Medical (4) Chronic allergic rhinitis: Code(s): J30.9 - Allergic rhinitis, unspecified Category: Medical (5) Eczematous dermatitis: Code(s): L30.9 - Dermatitis, unspecified Category: Medical Qualifiers: Eczema type: unspecified Qualified Code(s): L30.9 - Dermatitis, unspecified Plan Increase Trelegy 200 start Singulair SOFIA as needed antihistamine therapy Bloodwork/allergy testing consider Biologic therapy fluticasone nasal spray PFTs F/U 2-3 months Orders: Orders Resp Allergy Profile Region I Today J45.909 - Unspecified asthma, uncomplicated, R91.1 - Solitary pulmonary nodule, T78.40XA - Allergy, unspecified, initial encounter Immunoglobulin G Subclasses Today J45.90 - Unspecified asthma, uncomplicated, T78.40XA - Allergy, unspecified, initial encounter MARISA Reflex Titer and Pattern Today [facility].90 - Unspecified asthma, uncomplicated, T78.40XA - Allergy, unspecified, initial encounter PFT pulmonary function test Today J45.90 - Unspecified asthma, uncomplicated Immunoglobulins,IgG IgA IgM Today 45.90 - Unspecified asthma, uncomplicated, T78.40XA - Allergy, unspecified, initial encounter Complete Blood Count Auto Diff Today J45.90 - Unspecified asthma, uncomplicated, T78.40XA - Allergy, unspecified, initial encounter Basic Metabolic Panel Today 45.90 - Unspecified asthma, uncomplicated, T78.40XA - Allergy, unspecified, initial encounter Erythrocyte Sedimentation Rate Today 45.90 - Unspecified asthma, uncomplicated, T78.40XA - Allergy, unspecified, initial encounter Medications: New fluticasone propionate 50 mcg/actuation 2 sprays intranasal DAILY 15.8 mL 11RF 30 days J31.0 - Chronic rhinitis vqcbxlrcyuw-zdnyxvlch-fawycobz 200-62.5-25 mcg (Trelegy Ellipta) 1 inh inhalation DAILY 60 ea 12RF 30 days montelukast (Singulair) 10 mg PO BEDTIME 30 tabs 11RF 30 days J45.909 - Unspecified asthma, uncomplicated Discontinued vtbzwxtedxk-dbhuasuxx-qifkydtu 100-62.5-25 mcg (Trelegy Ellipta) Discontinued Reason: Doctor's Order 1 inh inhalation DAILY 28 days 28 ea 0RF Coding Level of Care Code New Pt Level 4 (15525) Diagnoses Severe persistent asthma without complication J45.50 Asthma severity: severe Asthma persistence: persistent Asthma complication type: uncomplicated Allergy, initial encounter T78.40XA Encounter type: initial encounter Atopy Z88.9 Chronic allergic rhinitis J30.9 Eczema, unspecified type L30.9 Eczema type: unspecified Time Spent (min) 38
== END 2024-01-03 14:07 | disposition home or self-care (01) ==
PROVIDERS: PCP Internal Medicine; Visit Provider Hospitalist
DX: J45.50 Severe persistent asthma, uncomplicated (principal); T78.40XA Allergy, unspecified, initial encounter; Z88.9 Allergy status to unspecified drugs, medicaments and biological substances; J30.9 Allergic rhinitis, unspecified; L30.9 Dermatitis, unspecified
CPT/HCPCS: 99204

== ENCOUNTER → 2024-01-03 13:37 | Outpatient (BNVA) | payer OTHER, SELFPAY | PROVIDERS: PCP Internal Medicine; Visit Provider Hospitalist | DX: J45.50 Severe persistent asthma, uncomplicated (principal); J30.9 Allergic rhinitis, unspecified; L20.9 Atopic dermatitis, unspecified; Z88.9 Allergy status to unspecified drugs, medicaments and biological substances | CPT/HCPCS: 99202 ==

== ENCOUNTER 2024-02-09 13:45 | Outpatient (REF) | payer OTHER, SELFPAY ==
[2024-02-09 14:11] LABS: MANUAL DIFF FLAG NO
[2024-02-09 14:17] LABS: Basophils Absolute Auto 0.1 X10*3/uL (0.0-0.2); Eosinophils Absolute Auto 0.9 X10*3/uL (0.0-0.4); Eosinophils Percent Auto 10.6 % (0-4); Hematocrit 39.7 % (42.0-52.0); Hemoglobin 13.8 g/dl (14.0-18.0); Imm Gran Abs Auto 0.04 X10*3/uL (0.00-0.03); Imm Gran Pct Auto 0.5 % (0.0-0.4); Lymphocytes Absolute Auto 1.4 X10*3/uL (1.2-4.9); Lymphocytes Percent Auto 16.6 % (20-40); Mean Corpuscular HGB Conc 34.8 g/dl (31.0-36.0); Mean Corpuscular Hemoglobin 31.1 pg (27.0-33.0); Mean Corpuscular Volume 89.4 fL (80.0-98.0); Mean Platelet Volume 11.6 fL (9.4-12.4); Monocytes Absolute Auto 0.7 X10*3/uL (0.1-1.2); Monocytes Percent Auto 8.4 % (2-11); Neutrophils Absolute Auto 5.2 x10*3/uL (2.0-8.3); Neutrophils Percent Auto 62.9 % (45-73); Platelet Count 214 X10*3/uL (160-400); Red Blood Count 4.44 X10*6/uL (4.60-5.80); Red Cell Distribution Width 13.2 % (11.0-16.0); White Blood Count 8.2 X10*3/uL (4.8-10.8)
[2024-02-09 14:34] LABS: Anion Gap 11 (12-20); Blood Urea Nitrogen 21 mg/dL (9-16); Calcium 10.3 mg/dL (8.4-10.2); Carbon Dioxide 30 mmol/L (22-29); Chloride 105 mmol/L (96-108); Estimated Glomerular Filt Rate 38; Glucose Random 90 mg/dL (60-115); Potassium 4.1 mmol/L (3.3-5.1); Sodium 142 mmol/L (135-145)
[2024-02-09 14:55] LABS: Erythrocyte Sedimentation Rate 28 MM/HR (0-15)
[2024-02-10 19:23] LABS: IgA 157 mg/dL (47-310); IgG 1147 mg/dL (600-1640); IgM 66 mg/dL (50-300)
[2024-02-14 09:58] LABS: Immunoglobulin G Subclass 1 623 mg/dL (382-929); Immunoglobulin G Subclass 2 243 mg/dL (241-700); Immunoglobulin G Subclass 3 57 mg/dL (22-178); Immunoglobulin G Subclass 4 111.1 mg/dL (4-86); Immunoglobulin G Total 1083 mg/dL (600-1640)
[2024-02-15 10:42] LABS: Anti Nuclear Antibody Screen NEGATIVE (NEGATIVE)
[2024-02-23 13:01] LABS: Class Mouse Urine Protein 2
[2024-02-23 13:02] LABS: Class Cat Dander 4; Class Cockroach 0/1; Class Dermatophagoides farinae 4; Class Dog Dander 6; Class Timothy Grass 2; E005 - IgE Dog Dander >100 (H); I006-IgE Cockroach, German 0.34 (H)
[2024-02-23 13:03] LABS: Class Alternaria alternata 0/1; Class Aspergillus fumigatus 0; Class Cladosporium herbarum 0/1; Class Mountain Cedar 2; Class Oak 2; M003 - IgE Aspergillus fumigat <0.10; M006 - IgE Alternaria alternat 0.12 (H); T006 - IgE Cedar, Mountain 0.90 (H)
[2024-02-23 13:04] LABS: Class Common Ragweed 1; Class Cottonwood 2; Class Sycamore 2; Class Walnut Tree 2; Class White Ash 2; Class White Mulberry 1; T015 - IgE Ash, White 0.96 (H); W001 - IgE Ragweed, Short 0.60 (H)
[2024-02-23 13:05] LABS: Class Bermuda Grass 1; Class Birch 2; Class Derm. pterony 4; Class Mugwort 1; Class Penicillium crysogenum 0; M001 IgE Penicillium chrysogen <0.10; W006 - IgE Mugwort 0.60 (H)
[2024-02-23 13:06] LABS: Class Elm 2; Class Maple Box Elder 2; Class Rough Pigweed 1; Class Sheep Sorrel 1; W014 IgE Pigweed, Common 0.49 (H)
== END 2024-02-09 13:46 | disposition home or self-care (01) ==
LOC: HO.LAB 13:45
PROVIDERS: PCP Internal Medicine; Visit Provider Hospitalist
DX: R91.1 Solitary pulmonary nodule (principal); J45.909 Unspecified asthma, uncomplicated; T78.40XA Allergy, unspecified, initial encounter
CPT/HCPCS: 36415; 80048; 82784; 82785; 85025; 85652; 86003; 86038

== ENCOUNTER 2024-02-15 13:28 | Outpatient (AMB) | payer OTHER, SELFPAY ==
--- NOTE | 2024-02-15 13:39 | HO.NEPHOV_ITS ---
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 He does not have any fevers, chills ,cough , chest pain shortness of breath, paroxysmal nocturnal dyspnea, orthopnea or pedal edema.. He is known to have CKD and hypertension. patient has been hypertensive during his recent hospital stay and medications were adjusted.Chest x-ray unremarkable. His serum creatinine has gone up & is seen in follow up. He denies any drug use or ztgd-tmt-acbltzy medications. His urine output is good. Does not have any new skin rashes, epistaxis, sinusitis, recent antibiotic intake, joint swellings, hematuria o. He has been having low BP and orthostatic symptoms intermittently. He has not been taking losartan now [facility] Medical History (Updated 02/15/24 @ 13:43 by Travis Lynn MD) Chronic allergic rhinitis Atopy Allergies Asthma Mild recurrent major depression Acute hypoxemic respiratory failure Moderate major depression Atrial septal aneurysm Toonk-tt-unqlryy kidney injury Anxiety Benign essential hypertension Tachycardia GERD (gastroesophageal reflux disease) Headache Hyperostosis Severe depression Moderate asthma Essential hypertension Mixed hyperlipidemia Surgical History History of hernia surgery Family History Father Seizures Mother No problems noted. Social History Household Members: Family Housing: Apartment Housing Other:: [place] Do you presently have visiting nurse or other home services: Yes Alcohol intake: never Patient Tobacco Use Status: Former Tobacco user e-Cigarette/Vaping Use: Never Used Second Hand Smoke Exposure: No service: No Current occupational status: disabled Cognitive needs: No Hearing needs: No Vision needs: Yes Review of Systems Const All systems reviewed & are unremarkable except as noted in HPI and below Physical Exam Vital Signs: Last Vital Signs Pulse 78 02/15/24 13:42 BP 104/70 02/15/24 13:42 Pulse Ox 97 02/15/24 13:42 Oxygen Delivery Method Room Air 02/15/24 13:42 BMI result Body Mass Index 21.6 Const General: comfortable and no acute distress Orientation/consciousness: patient oriented x3 HEENT Head: Yes normocephalic Mouth: Normal oral and palatal mucosa present Eyes EOM: EOMs intact bilaterally Neck Neck: Yes supple Resp Auscultation: clear to auscultation bilaterally Cardio Jugular venous distension: no JVD Rate: regular rate GI Palpation (GI): Soft to palpation Auscultation: normal bowel sounds General: Yes no CVA tenderness Back/Spine/Pelvis Back: no CVA tenderness Skin General skin exam: no rashes or lesions noted Neuro General: patient oriented x3 and moves all extremities Extrem General: Yes no pedal edema Results Reviewed Nephrology Results: Hgb 13.8 g/dl (14.0-18.0) L 02/09/24 WBC 8.2 X10*3/uL (4.8-10.8) 02/09/24 Plt Count 214 X10*3/uL (160-400) 02/09/24 Sodium 142 mmol/L (135-145) 02/09/24 Potassium 4.1 mmol/L (3.3-5.1) 02/09/24 Chloride 105 mmol/L (96-108) 02/09/24 Carbon Dioxide 30 mmol/L (22-29) H 02/09/24 BUN 21 mg/dL (9-16) H 02/09/24 Creatinine 1.85 mg/dL (0.5-1.4) H 02/09/24 Calcium 10.3 mg/dL (8.4-10.2) H 02/09/24 PTH Intact 56.7 pg/mL (8.7-77.1) 10/22/23 Urine Creatinine 47.75 mg/dL 10/22/23 Protein/Creatinin Ratio 0.25 (<0.2) H 10/22/23 Renal US 10/21/23 Assessment & Plan Assessment & Plan (1) Dtfph-pw-xboruyx kidney injury: Code(s): N17.9 - Acute kidney failure, unspecified; N18.9 - Chronic kidney disease, unspecified Category: Medical Qualifiers: Acute renal failure type: unspecified Chronic kidney disease stage: stage 3 (moderate) Chronic kidney disease stage 3 subtype: stage 3b (GFR 30-44) Qualified Code(s): N17.9 - Acute kidney failure, unspecified; N18.32 - Chronic kidney disease, stage 3b (2) Benign essential hypertension: Code(s): I10 - Essential (primary) hypertension Category: Medical Plan Known to have CKD 3- serum creatinine gone up from baseline due to low BP'.s No clinical suspicion of thrombotic microangiopathy; No significant proteinuria Doppler renal artery - No RADHA; Was on ARB- D/Navdeep himself; Reduced propranolol himself Reduced Clonidine to 0.2 mg bid; Labs ordered. No NSAID's; Has high IgG4 Good hydration; may need renal biopsy if creatinine worsens; FU 1 M Orders: Orders Electrolytes Today I10 - Essential (primary) hypertension, N17.9 - Acute kidney failure, unspecified, N18.32 - Chronic kidney disease, stage 3b Creatinine Today I10 - Essential (primary) hypertension, N17.9 - Acute kidney failure, unspecified, N18.32 - Chronic kidney disease, stage 3b Blood Urea Nitrogen Today I10 - Essential (primary) hypertension, N17.9 - Acute kidney failure, unspecified, N18.32 - Chronic kidney disease, stage 3b Medications: Changed From clonidine HCl 0.3 mg PO TID 30 days 90 tabs 2RF To clonidine HCl 0.2 mg PO BID 30 days 60 tabs 2RF Discontinued losartan Discontinued Reason: Doctor's Order 50 mg PO DAILY 90 days 90 tabs 0RF Coding Level of Care Code Est Pt Level 4 (85035) Diagnoses Acute renal failure superimposed on stage 3b chronic kidney disease, unspecified acute renal failure type N17.9; N18.32 Acute renal failure type: unspecified Chronic kidney disease stage: stage 3 (moderate) Chronic kidney disease stage 3 subtype: stage 3b (GFR 30-44) Benign essential hypertension I10
[2024-02-15 13:42] VITALS: BP 104/70; PULSE 78; O2SAT 97; BMI 21.6
== END 2024-02-15 14:03 | disposition home or self-care (01) ==
PROVIDERS: PCP Internal Medicine; Visit Provider Internal Medicine Nephrology
DX: N17.9 Acute kidney failure, unspecified (principal); N18.32 Chronic kidney disease, stage 3b; I10 Essential (primary) hypertension
CPT/HCPCS: 99214

== ENCOUNTER → 2024-02-15 13:28 | Outpatient (BNVA) | payer OTHER, SELFPAY | PROVIDERS: PCP Internal Medicine; Visit Provider Internal Medicine Nephrology | DX: N17.9 Acute kidney failure, unspecified (principal); I12.9 Hypertensive chronic kidney disease with stage 1 through stage 4 chronic kidney disease, or unspecified chronic kidney disease; N18.32 Chronic kidney disease, stage 3b | CPT/HCPCS: 99212 ==

== ENCOUNTER 2024-03-15 14:58 | Outpatient (AMB) | payer OTHER, SELFPAY ==
[2024-03-15 15:02] VITALS: BP 140/92; BMI 21.6
--- NOTE | 2024-03-15 15:02 | A.OFFPC_ITS ---
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 Accompanied by: Self / Same As Patient Allergies sumatriptan Allergy (Mild, Verified 03/15/24 15:16) headaches nifedipine Adverse Reaction (Intermediate, Verified 03/15/24 15:16) anxious lisinopril Adverse Reaction (Mild, Verified 03/15/24 15:16) Anxiety Medication List - Last Reconciled 03/15/24 by Greta Olivera MD clonidine HCl 0.2 mg PO BID 30 days famotidine 40 mg PO BID PRN 90 days fluticasone propionate 50 mcg/actuation 2 sprays intranasal DAILY 30 days xqxzicelwet-wpzwdvrtt-ufdusgok 200-62.5-25 mcg (Trelegy Ellipta) 1 inh inhalation DAILY 30 days gabapentin 400 mg PO BEDTIME 30 days ipratropium-albuterol 0.5 mg-3 mg(2.5 mg base)/3 mL 3 mL inhalation Q6-8H PRN loratadine 10 mg PO DAILY PRN 90 days montelukast (Singulair) 10 mg PO BEDTIME 30 days nebulizers (VixOne Nebulizer-Adult Mask) As directed propranolol ER 30 mg PO DAILY sertraline 25 mg PO DAILY PRN 90 days Ventolin HFA 90 mcg/actuation (albuterol sulfate) 2 puffs inhalation Q6H PRN 30 days NS Tobacco use date assessed: 07/18/23 Dental Screening Dental Screen Date: 03/15/24 Did you have a dental visit in the last 12 months?: No Did you have a dental problem in the last 6 months where you did not have access to dental care?: No Was dental information given to patient?: Patient has dentist HPI HPI Comments History of Present Illness Details This is a 53-year-old male with hypertension, chronic kidney disease stage 3, moderate asthma and mild major depression that comes today for follow- up on his conditions. Blood pressure has improved but still has he has variations. GFR has decreased to 38 and this is follow by Nephrology. He use rescue inhaler few times a month and asthma is follow by pulmonology. Patient aware that he is allergic to cats and dogs and he lives with a dog. Depression stable with SSRIs. Denies any chest pain or shortness on breath. Complains of eczema and would like Dermatology referral. Has erectile dysfunction and would like to be seen by Urology again. [facility] Medical History (Updated 03/15/24 @ 15:54 by Greta Olivera MD) SHAMIR (acute kidney injury) Chronic allergic rhinitis Atopy Allergies Asthma Mild recurrent major depression Acute hypoxemic respiratory failure Moderate major depression Atrial septal aneurysm Ouilc-vw-cxmexfj kidney injury Anxiety Benign essential hypertension Tachycardia GERD (gastroesophageal reflux disease) Headache Hyperostosis Severe depression Moderate asthma Essential hypertension Mixed hyperlipidemia Surgical History History of hernia surgery Family History Father Seizures Mother No problems noted. Social History Household Members: Family Housing: Apartment Housing Other:: [facility] Do you presently have visiting nurse or other home services: Yes Alcohol intake: never Patient Tobacco Use Status: Former Tobacco user e-Cigarette/Vaping Use: Never Used Second Hand Smoke Exposure: No service: No Current occupational status: disabled Cognitive needs: No Hearing needs: No Vision needs: Yes Questionnaire Thrive Questionnaire Date Thrive assessed: 10/18/23 KHRIS-7 AMB Questionnaire KHRIS-7 Date KHRIS - 7 assessed: 07/18/23 Source: Developed by Drs. Genaro Vásquez, Cindy Chávez, Remington Colvin and colleagues, with an educational kalli from [employer]. Review of Systems Const All systems reviewed & are unremarkable except as noted in HPI and below Card Denies chest pain at rest, Denies chest pain with activity, Denies edema, Denies irregular heart rhythm, Denies claudication, Denies dyspnea, Denies dyspnea on exertion, Denies orthopnea, Denies paroxysmal nocturnal dyspnea and Denies slow heart rate Resp Denies cough, Denies dyspnea and Denies dyspnea on exertion GI Denies abdominal pain, Denies change in bowel habits, Denies excessive flatus, Denies nausea and Denies vomiting Physical exam (Primary Care) Vital Signs: Last Vital Signs BP 140/92 H 03/15/24 15:02 BMI result Body Mass Index 21.6 Tobacco/Smoking Status: Tobacco use Status Tobacco use date assessed 07/18/23 03/15/24 15:09 Patient Tobacco Use Status Former Tobacco user 03/15/24 15:09 e-Cigarette/Vaping Use Never Used 03/15/24 15:09 Thrive Assessment: Date of Thrive Assessment Date Thrive assessed 10/18/23 03/15/24 15:09 Resp Effort & Inspection: normal respiratory effort Cardio Jugular venous distension: no JVD Rate: regular rate Rhythm: regular rhythm Heart sounds: S1 normal heart sound present and S2 normal heart sound present Extrem General: Yes full ROM Assessment and Plan Assessment & Plan (1) CKD (chronic kidney disease) stage 3, GFR 30-59 ml/min: Code(s): N18.30 - Chronic kidney disease, stage 3 unspecified Qualifiers: Chronic kidney disease stage 3 subtype: stage 3b (GFR 30-44) Qualified Code(s): N18.32 - Chronic kidney disease, stage 3b Plan: Avoid NSAIDs. Keep blood pressure within goal. Follow-up with nephrology. (2) Mild recurrent major depression: Code(s): F33.0 - Major depressive disorder, recurrent, mild Plan: Continue SSRIs. (3) Moderate persistent asthma: Code(s): J45.40 - Moderate persistent asthma, uncomplicated Qualifiers: Asthma complication type: uncomplicated Qualified Code(s): J45.40 - Moderate persistent asthma, uncomplicated Plan: Continue long-acting inhaler. Use rescue inhaler as needed. Follow-up with pulmonology. (4) Hypertension: Code(s): I10 - Essential (primary) hypertension Qualifiers: Hypertension type: secondary to other renal disorders Qualified Code(s): I15.1 - Hypertension secondary to other renal disorders Plan: Continue clonidine. Blood pressure goal is equal or less than 130/80. Orders: Orders Lipid Panel 4 Months E78.5 - Hyperlipidemia, unspecified, I15.1 - Hypertension secondary to other renal disorders Comprehensive [place]. Panel Fast 4 Months I15.1 - Hypertension secondary to other renal disorders Complete Blood Count Auto Diff 4 Months D64.9 - Anemia, unspecified IRON PROFILE 4 Months D64.9 - Anemia, unspecified Referrals Dermatology Referral L30.9 - Dermatitis, unspecified Urology Referral N52.9 - Male erectile dysfunction, unspecified Coding Level of Care Code Est Pt Level 4 (70274) Complex EM visit Add On G2211 Diagnoses Stage 3b chronic kidney disease N18.32 Chronic kidney disease stage 3 subtype: stage 3b (GFR 30-44) Mild recurrent major depression F33.0 Moderate persistent asthma without complication J45.40 Asthma complication type: uncomplicated Hypertension secondary to other renal disorders I15.1 Hypertension type: secondary to other renal disorders Time Spent (min) 23
[2024-03-15 15:50] VITALS: BP 138/88
== END 2024-03-15 15:28 | disposition home or self-care (01) ==
PROVIDERS: PCP Internal Medicine; Visit Provider Internal Medicine
DX: N18.32 Chronic kidney disease, stage 3b (principal); F33.0 Major depressive disorder, recurrent, mild; J45.40 Moderate persistent asthma, uncomplicated; I15.1 Hypertension secondary to other renal disorders
CPT/HCPCS: 99214; G2211

== ENCOUNTER 2024-04-11 15:15 | Outpatient (AMB) | payer OTHER, SELFPAY ==
--- NOTE | 2024-04-11 15:35 | HO.NEPHOV ---
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 He does not have any fevers, chills ,cough , chest pain shortness of breath, paroxysmal nocturnal dyspnea, orthopnea or pedal edema.. He is known to have CKD and hypertension. His serum creatinine has gone up & is seen in follow up. He denies any drug use or noib-bxl-pcjaxbj medications. His urine output is good. He does not have any new skin rashes, epistaxis, sinusitis, recent antibiotic intake, joint swellings, hematuria. He has not been taking any anti hypertensives except clonidine. [facility] Medical History (Updated 03/15/24 @ 15:54 by Greta Olivera MD) SHAMIR (acute kidney injury) Chronic allergic rhinitis Atopy Allergies Asthma Mild recurrent major depression Acute hypoxemic respiratory failure Moderate major depression Atrial septal aneurysm Ypbvn-ng-yvrqage kidney injury Anxiety Benign essential hypertension Tachycardia GERD (gastroesophageal reflux disease) Headache Hyperostosis Severe depression Moderate asthma Essential hypertension Mixed hyperlipidemia Surgical History History of hernia surgery Family History Father Seizures Mother No problems noted. Social History Household Members: Family Housing: Apartment Housing [place]:: [place] Do you presently have visiting nurse or other home services: Yes Alcohol intake: never Patient Tobacco Use Status: Former Tobacco user e-Cigarette/Vaping Use: Never Used Second Hand Smoke Exposure: No service: No Current occupational status: disabled Cognitive needs: No Hearing needs: No Vision needs: Yes Review of Systems Const All systems reviewed & are unremarkable except as noted in HPI and below Physical Exam Vital Signs: Last Vital Signs Pulse 77 04/11/24 15:36 BP 140/90 H 04/11/24 15:36 Pulse Ox 100 04/11/24 15:36 Oxygen Delivery Method Room Air 04/11/24 15:36 BMI result Body Mass Index 22.1 Const General: comfortable and no acute distress Orientation/consciousness: patient oriented x3 HEENT Head: Yes normocephalic Mouth: Normal oral and palatal mucosa present Eyes EOM: EOMs intact bilaterally Neck Neck: Yes supple Resp Auscultation: clear to auscultation bilaterally Cardio Jugular venous distension: no JVD Rate: regular rate GI Palpation (GI): Soft to palpation Auscultation: normal bowel sounds General: Yes no CVA tenderness Back/Spine/Pelvis Back: no CVA tenderness Skin General skin exam: no rashes or lesions noted Neuro General: patient oriented x3 and moves all extremities Extrem General: Yes no pedal edema Results Reviewed Nephrology Results: Hgb 13.8 g/dl (14.0-18.0) L 02/09/24 WBC 8.2 X10*3/uL (4.8-10.8) 02/09/24 Plt Count 214 X10*3/uL (160-400) 02/09/24 Sodium 142 mmol/L (135-145) 02/09/24 Potassium 4.1 mmol/L (3.3-5.1) 02/09/24 Chloride 105 mmol/L (96-108) 02/09/24 Carbon Dioxide 30 mmol/L (22-29) H 02/09/24 BUN 21 mg/dL (9-16) H 02/09/24 Creatinine 1.85 mg/dL (0.5-1.4) H 02/09/24 Calcium 10.3 mg/dL (8.4-10.2) H 02/09/24 Assessment & Plan Assessment & Plan (1) CKD (chronic kidney disease) stage 3, GFR 30-59 ml/min: Code(s): N18.30 - Chronic kidney disease, stage 3 unspecified Category: Medical Qualifiers: Chronic kidney disease stage 3 subtype: stage 3b (GFR 30-44) Qualified Code(s): N18.32 - Chronic kidney disease, stage 3b (2) Hypertension: Code(s): I10 - Essential (primary) hypertension Category: Medical Qualifiers: Hypertension type: secondary to other renal disorders Qualified Code(s): I15.1 - Hypertension secondary to other renal disorders (3) Essential hypertension: Code(s): I10 - Essential (primary) hypertension Category: Medical Plan Known to have CKD 3- serum creatinine gone up from baseline No clinical suspicion of thrombotic microangiopathy; No significant proteinuria Doppler renal artery - No ARDHA; Was on ARB- D/Navdeep himself; D/C ed propranolol himself Reduced Clonidine to 0.2 mg bid; Started nifedipine 30mg to take in the afternoon Labs ordered. No NSAID's; Has high IgG4 Good hydration; may need renal biopsy if creatinine worsens; FU 1 M Orders: Orders Creatinine 1 Month N18.32 - Chronic kidney disease, stage 3b Blood Urea Nitrogen 1 Month N18.32 - Chronic kidney disease, stage 3b Electrolytes 1 Month N18.32 - Chronic kidney disease, stage 3b Medications: New nifedipine ER 30 mg PO DAILY 30 tabs 3RF Refilled clonidine HCl 0.2 mg PO BID 30 days 60 tabs 2RF Coding Level of Care Code Est Pt Level 4 (52898) Diagnoses Stage 3b chronic kidney disease N18.32 Chronic kidney disease stage 3 subtype: stage 3b (GFR 30-44) Hypertension secondary to other renal disorders I15.1 Hypertension type: secondary to other renal disorders Essential hypertension I10
[2024-04-11 15:36] VITALS: BP 140/90; PULSE 77; O2SAT 100; BMI 22.1
== END 2024-04-11 16:08 | disposition home or self-care (01) ==
PROVIDERS: PCP Internal Medicine; Visit Provider Internal Medicine Nephrology
DX: N18.32 Chronic kidney disease, stage 3b (principal); I15.1 Hypertension secondary to other renal disorders
CPT/HCPCS: 99214

== ENCOUNTER → 2024-04-11 15:15 | Outpatient (BNVA) | payer OTHER, SELFPAY | PROVIDERS: PCP Internal Medicine; Visit Provider Internal Medicine Nephrology | DX: I15.1 Hypertension secondary to other renal disorders (principal); N18.32 Chronic kidney disease, stage 3b | CPT/HCPCS: 99212 ==

== ENCOUNTER 2024-04-13 14:10 | Outpatient (AMB) | payer OTHER, SELFPAY ==
--- NOTE | 2024-04-13 14:17 | MHC.OFFVIS ---
Vital Signs 04/13/24 14:18 Height 5 ft 9 in Weight 145 lb BMI 21.4 BP 132/70 Blood Pressure Location Lt brachial Position Sitting Pulse 65 Pulse Source Pulse Oximeter Pulse Oximetry (%) 100 Oxygen Delivery Method Room Air Intake Visit Reasons: Asthma Fur Tinter Required: No Allergies sumatriptan Allergy (Mild, Verified 04/13/24 14:17) headaches nifedipine Adverse Reaction (Intermediate, Verified 04/13/24 14:17) anxious lisinopril Adverse Reaction (Mild, Verified 04/13/24 14:17) Anxiety HPI Comments Details: The patient is a 53-year-old gentleman known significant asthma in addition to atopic dermatitis. He does follow-up closely with dermatology. He has had multiple exacerbations from his breathing standpoint. The last time she was evaluated in the ER was back in October. He did have a chest x-ray without any significant disease. The patient had a chest x-ray without any acute disease which is reassuring. He did have blood work demonstrating significant eosinophilia 1500. explained to him that this is significantly elevated. Quickly after taking prednisone the eosinophils decreased to 0. His symptoms drastically improved when he is on prednisone. He was placed on Trelegy 100 which seems to be effective in helping his symptoms. He continues to have wheezing on and off throughout the day. He also uses her rescue inhaler typically more than twice a week. Therefore, the patient does have severe persistent asthma. Appears to have atopy with significant chronic rhinitis and what appears to be atopic dermatitis. Will go ahead and request blood work including allergy testing. The patient also needs pulmonary function studies. Will continue to optimize his respiratory therapy. However, if he does not improve then I do believe the biologic therapy will be warranted at that time. 04/13/2024 the patient is here for a pulmonary follow-up visit. The patient has been still struggling with breathing. The Trelegy inhaler has been helpful. Although he still having hard time. He has significant allergies based on his allergy testing. His IgE levels up to above 7000 in his eosinophils are above a 1000. 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 He has significant atopic dermatitis along with chronic rhinitis. He has maximizing his respiratory therapy still continues to be symptomatic. He is having hard time we did breathing now. Little inspiratory and expiratory wheezing. Will go ahead and give him a course of prednisone at this time. The patient will be a great candidate for biologic therapy with [employer]. Will go ahead and request Dupixent at this time. [facility] Medical History (Updated 03/15/24 @ 15:54 by Greta Olivera MD) SHAMIR (acute kidney injury) Chronic allergic rhinitis Atopy Allergies Asthma Mild recurrent major depression Acute hypoxemic respiratory failure Moderate major depression Atrial septal aneurysm Xzrya-id-myiplol kidney injury Anxiety Benign essential hypertension Tachycardia GERD (gastroesophageal reflux disease) Headache Hyperostosis Severe depression Moderate asthma Essential hypertension Mixed hyperlipidemia Surgical History History of hernia surgery Family History Father Seizures Mother No problems noted. Social History Household Members: Family Housing: Apartment Housing Other:: [facility] Do you presently have visiting nurse or other home services: Yes Alcohol intake: never Patient Tobacco Use Status: Former Tobacco user e-Cigarette/Vaping Use: Never Used Second Hand Smoke Exposure: No service: No Current occupational status: disabled Cognitive needs: No Hearing needs: No Vision needs: Yes Review of Systems Const Denies fatigue and Denies fever(s) Eyes Reports no additional complaints ENT Reports nasal congestion and Reports nasal discharge Card Denies chest pain Resp Reports cough and Reports wheezing GI Reports dyspepsia and Reports heartburn Musc Reports no additional complaints Skin/Breast Reports rash Endo Denies fatigue Aller/Immun Reports wheezing Physical Exam Vital Signs: Last Vital Signs Pulse 65 04/13/24 14:18 BP 132/70 04/13/24 14:18 Pulse Ox 100 04/13/24 14:18 Oxygen Delivery Method Room Air 04/13/24 14:18 BMI result Body Mass Index 21.4 Const General: comfortable HEENT Head: Yes normocephalic Neck Neck: Yes supple Chest Chest palpation & inspection: normal inspection of the chest Resp Effort & Inspection: normal respiratory effort Auscultation: wheezes and diminished lung sounds Cardio Heart sounds: S1 normal heart sound present and S2 normal heart sound present GI Palpation (GI): Soft to palpation Skin Rashes: rashes noted Extrem General: Yes no clubbing, cyanosis or edema Assessment & Plan Assessment & Plan (1) Asthma: Code(s): J45.909 - Unspecified asthma, uncomplicated Category: Medical Qualifiers: Asthma complication type: uncomplicated Asthma persistence: persistent Asthma severity: severe Qualified Code(s): J45.50 - Severe persistent asthma, uncomplicated (2) Allergies: Code(s): T78.40XA - Allergy, unspecified, initial encounter Category: Medical Qualifiers: Encounter type: initial encounter Qualified Code(s): T78.40XA - Allergy, unspecified, initial encounter (3) Atopy: Code(s): Z88.9 - Allergy status to unspecified drugs, medicaments and biological substances Category: Medical (4) Chronic allergic rhinitis: Code(s): J30.9 - Allergic rhinitis, unspecified Category: Medical (5) Eczematous dermatitis: Code(s): L30.9 - Dermatitis, unspecified Category: Medical Qualifiers: Eczema type: unspecified Qualified Code(s): L30.9 - Dermatitis, unspecified Plan Trelegy 200 Singulair SOFIA as needed antihistamine therapy Start Dupixent for his severe persistent asthma start prednisone taper fluticasone nasal spray PFTs F/U 3-4 months Medications: New prednisone PO daily; Take 2 tabs daily x 5 days, then 1 tablet daily x 5 days 10 days 15 tabs 0RF Coding Level of Care Code Est Pt Level 4 (36693) Diagnoses Severe persistent asthma without complication J45.50 Asthma complication type: uncomplicated Asthma persistence: persistent Asthma severity: severe Allergy, initial encounter T78.40XA Encounter type: initial encounter Atopy Z88.9 Chronic allergic rhinitis J30.9 Eczema, unspecified type L30.9 Eczema type: unspecified Time Spent (min) 17
[2024-04-13 14:18] VITALS: BP 132/70; PULSE 65; O2SAT 100; BMI 21.4
== END 2024-04-13 14:33 | disposition home or self-care (01) ==
PROVIDERS: PCP Internal Medicine; Visit Provider Hospitalist
DX: J45.50 Severe persistent asthma, uncomplicated (principal); T78.40XA Allergy, unspecified, initial encounter; Z88.9 Allergy status to unspecified drugs, medicaments and biological substances; J30.9 Allergic rhinitis, unspecified; L30.9 Dermatitis, unspecified
CPT/HCPCS: 99214

== ENCOUNTER → 2024-04-13 14:10 | Outpatient (BNVA) | payer OTHER, SELFPAY | PROVIDERS: PCP Internal Medicine; Visit Provider Hospitalist | DX: J45.50 Severe persistent asthma, uncomplicated (principal); J31.0 Chronic rhinitis; L30.9 Dermatitis, unspecified; T78.40XA Allergy, unspecified, initial encounter; X58.XXXA Exposure to other specified factors, initial encounter; Y93.9 Activity, unspecified; Y92.9 Unspecified place or not applicable; Y99.9 Unspecified external cause status; Z88.9 Allergy status to unspecified drugs, medicaments and biological substances | CPT/HCPCS: 99212 ==

== ENCOUNTER 2024-04-25 13:13 | Outpatient (AMB) | payer OTHER, SELFPAY ==
[2024-04-25 13:34] VITALS: PULSE 88; O2SAT 100; BMI 21.5
--- NOTE | 2024-04-25 13:34 | MHC.OFFVIS ---
Vital Signs 04/25/24 13:34 Height 5 ft 9 in Weight 145 lb 8.081 oz BMI 21.5 Pulse 88 Pulse Source Pulse Oximeter Pulse Oximetry (%) 100 Oxygen Delivery Method Room Air Intake Visit Reasons: dupixent teaching Allergies sumatriptan Allergy (Mild, Verified 04/25/24 13:34) headaches nifedipine Adverse Reaction (Intermediate, Verified 04/25/24 13:34) anxious lisinopril Adverse Reaction (Mild, Verified 04/25/24 13:34) Anxiety Medication List - Last Reconciled 04/25/24 by Lexy Caro LPN clonidine HCl 0.2 mg PO BID 30 days clonidine HCl 0.3 mg PO TID dupilumab (Dupixent) loading dose: 600mg SC x 1, then 300mg SC every 2 weeks 4 weeks famotidine 40 mg PO BID PRN 90 days fluticasone propionate 50 mcg/actuation 2 sprays intranasal DAILY 30 days nnfwpsdbhzo-wwzqzebqs-ctzjpudb 200-62.5-25 mcg (Trelegy Ellipta) 1 inh inhalation DAILY 30 days gabapentin 400 mg PO BEDTIME 30 days ipratropium-albuterol 0.5 mg-3 mg(2.5 mg base)/3 mL 3 mL inhalation Q6-8H PRN loratadine 10 mg PO DAILY PRN 90 days montelukast (Singulair) 10 mg PO BEDTIME 30 days nebulizers (VixOne Nebulizer-Adult Mask) As directed nifedipine ER 30 mg PO DAILY prednisone PO daily; Take 2 tabs daily x 5 days, then 1 tablet daily x 5 days 10 days propranolol ER 30 mg PO DAILY sertraline 25 mg PO DAILY PRN 90 days Ventolin HFA 90 mcg/actuation (albuterol sulfate) 2 puffs inhalation Q6H PRN 30 days NS HPI Comments Details: Benjie? is here for a Dupixent teach he was educated on hand washing, injection preparation, administration, and disposal.? Benjie was able to return demonstrate proper technique for hand washing, injection preparation, administration and disposal of needle and states he has no questions at this time. Medication Dupixent 300mg/2mL pre-filled auto injector (patient?s own meds) Loading dose of 600mg given by the patient in 2 SQ injections; injection #1 R abdomen;? injection #2 L abdomen? Lot# [id number] expires 10/31/2025. Patient aware his next injection is in 15 days. Nurse visit only.? [facility] Medical History (Updated 03/15/24 @ 15:54 by Greta Olivera MD) SHAMIR (acute kidney injury) Chronic allergic rhinitis Atopy Allergies Asthma Mild recurrent major depression Acute hypoxemic respiratory failure Moderate major depression Atrial septal aneurysm Lgpnh-wk-pambmib kidney injury Anxiety Benign essential hypertension Tachycardia GERD (gastroesophageal reflux disease) Headache Hyperostosis Severe depression Moderate asthma Essential hypertension Mixed hyperlipidemia Surgical History History of hernia surgery Family History Father Seizures Mother No problems noted. Social History Household Members: Family Housing: Apartment Housing Other:: [facility] Do you presently have visiting nurse or other home services: Yes Alcohol intake: never Patient Tobacco Use Status: Former Tobacco user e-Cigarette/Vaping Use: Never Used Second Hand Smoke Exposure: No service: No Current occupational status: disabled Cognitive needs: No Hearing needs: No Vision needs: Yes Physical Exam Vital Signs: Last Vital Signs Pulse 88 04/25/24 13:34 Pulse Ox 100 04/25/24 13:34 Oxygen Delivery Method Room Air 04/25/24 13:34 BMI result Body Mass Index 21.5 Assessment & Plan Assessment & Plan (1) Asthma: Code(s): J45.909 - Unspecified asthma, uncomplicated Category: Medical Qualifiers: Asthma complication type: uncomplicated Asthma persistence: persistent Asthma severity: severe Qualified Code(s): J45.50 - Severe persistent asthma, uncomplicated Plan Dupixrnt Coding Level of Care Code Established Pt Est Pt Level 1 (82535) Patient Type Established Diagnoses Severe persistent asthma without complication J45.50 Asthma complication type: uncomplicated Asthma persistence: persistent Asthma severity: severe Comment NURSE VISIT ONLY
== END 2024-04-25 13:37 | disposition home or self-care (01) ==
PROVIDERS: PCP Internal Medicine; Visit Provider Hospitalist
DX: J45.50 Severe persistent asthma, uncomplicated (principal)

== ENCOUNTER → 2024-04-25 13:13 | Outpatient (BNVA) | payer OTHER, SELFPAY | PROVIDERS: PCP Internal Medicine; Visit Provider Hospitalist | DX: J45.50 Severe persistent asthma, uncomplicated (principal) | CPT/HCPCS: 99211 ==

== ENCOUNTER 2024-05-14 12:56 | Outpatient (AMB) | payer OTHER, SELFPAY ==
--- NOTE | 2024-05-14 13:05 | A.OFFVIS_ITS ---
Intake Visit Reasons: erectile dysfunction Intake Note: New Patient presents for initial visit for erectile dysfunction Urology Medications: none Blood Thinner: none Bicycle Messenger Required: No Accompanied by: Self / Same As Patient Allergies sumatriptan Allergy (Mild, Verified 05/14/24 13:42) headaches nifedipine Adverse Reaction (Intermediate, Verified 05/14/24 13:42) anxious lisinopril Adverse Reaction (Mild, Verified 05/14/24 13:42) Anxiety Medication List - Last Reconciled 05/14/24 by RAFITA Melo- clonidine HCl 0.3 mg PO TID dupilumab ([employer]) loading dose: 600mg SC x 1, then 300mg SC every 2 weeks 4 weeks fluticasone propionate 50 mcg/actuation 2 sprays intranasal DAILY 30 days itfaavlqjuf-odmobvrap-kthsesrp 200-62.5-25 mcg (Trelegy Ellipta) 1 inh inhalation DAILY 30 days gabapentin 400 mg PO BEDTIME 30 days ipratropium-albuterol 0.5 mg-3 mg(2.5 mg base)/3 mL 3 mL inhalation Q6-8H PRN loratadine 10 mg PO DAILY PRN 90 days nebulizers (VixOne Nebulizer-Adult Mask) As directed propranolol ER 30 mg PO DAILY sertraline 25 mg PO DAILY PRN 90 days Ventolin HFA 90 mcg/actuation (albuterol sulfate) 2 puffs inhalation Q6H PRN 30 days NS HPI Comments Details: Benjie is a 53-year-old male patient of Dr. Bird. He has a past medical history of hypertension, allergies, asthma, depression, chronic kidney disease, anxiety, GERD, and hyperlipidemia. He presents to the office today as a new patient for erectile dysfunction. In discussion with the patient today he reports symptoms have been present for at least 20 years however feels they are worsening. He discusses finding it harder to obtain as well as maintain his erections. He denies any previous trauma. Denies any recreational drug use. He also reports noting issues with libido. He denies any bothersome urinary issues. In office urinalysis results reviewed with the patient today 2+ protein. He reports following up with Nephrology for this exact issue. He denies urinary urgency, urinary frequency, incontinence, nocturia, hematuria, dysuria, foul smelling urine, changes to urinary stream, flank pain, fever, and or chills. He is happy with his current voiding parameters. He reports having followed up with a urologist in the past however did not find this helpful. He reports previously trialing penile pumps and different penile rings and did not find this helpful. He reports a history of scrotal discomfort and following up with the urology group in [place] and undergoing further workup with imaging however no abnormalities were noted and has not been experiencing any discomfort. We discussed at length potential causes of erectile dysfunction as well as treatment options for ED and risks and benefits of these interventions. He otherwise offers no other issues or concerns at this time. [facility] Medical History (Reviewed 05/14/24 @ 13:43 by AFSHIN [facility] SHAMIR (acute kidney injury) Chronic allergic rhinitis Atopy Allergies Asthma Mild recurrent major depression Acute hypoxemic respiratory failure Moderate major depression Atrial septal aneurysm Kacof-wl-vlfrpag kidney injury Anxiety Benign essential hypertension Tachycardia GERD (gastroesophageal reflux disease) Headache Hyperostosis Severe depression Moderate asthma Essential hypertension Mixed hyperlipidemia Surgical History History of hernia surgery Family History Father Seizures Mother No problems noted. Social History Household Members: Family Housing: Apartment Housing Other:: [facility] Do you presently have visiting nurse or other home services: Yes Alcohol intake: never Patient Tobacco Use Status: Former Tobacco user e-Cigarette/Vaping Use: Never Used Second Hand Smoke Exposure: No service: No Current occupational status: disabled Cognitive needs: No Hearing needs: No Vision needs: Yes Review of Systems Const All systems reviewed & are unremarkable except as noted in HPI and below Physical Exam Const General: cooperative, healthy appearing, comfortable, no acute distress, well developed, alert and awake Orientation/consciousness: patient oriented x3 Limitations: no limitations HEENT Head: Yes normal to inspection, Yes normocephalic and Yes atraumatic Ears: hearing grossly normal bilaterally Eyes General: appearance normal, both eyes and all related structures Neck Neck: Yes normal visual inspection and Yes trachea midline Chest Chest palpation & inspection: normal inspection of the chest Resp Effort & Inspection: normal respiratory effort and able to speak in complete sentences Cardio Rate: regular rate GI Inspection: Yes normal to inspection General: Yes no CVA tenderness Back/Spine/Pelvis Back: no CVA tenderness Skin General skin exam: no rashes or lesions noted Neuro General: patient oriented x3 Extrem General: Yes normal to inspection Psych Appearance: grossly normal and well kempt Mental Status: mental status grossly normal Speech and movement: Normal speech and movement present and Clear speech present Affect: normal affect Attitude: cooperative Thought process: Normal thought process present Thought content: Normal thought content present Insight: Fair insight present (Psych) Judgement: Fair judgement present (Psych) Results AMB Urinalysis, Automated UA Leukoctes 70 Symone/uL Last Edit by [employer] on 05/14/24 13:35 UA Nitrite Last Edit by [employer] on 05/14/24 13:35 UA Urobilinogen 0.2 mg/dL Last Edit by [employer] on 05/14/24 13:35 UA Protein 100 mg/dL Last Edit by [employer] on 05/14/24 13:35 UA pH 6.0 Last Edit by [employer] on 05/14/24 13:35 UA Blood 0 Louie/uL Last Edit by [employer] on 05/14/24 13:35 UA Specific [place] 1.025 Last Edit by [employer] on 05/14/24 13:35 UA Ketone Last Edit by [employer] on 05/14/24 13:35 UA Bilirubin 1 mg/dL Last Edit by [employer] on 05/14/24 13:35 UA Glucose 0 mg/dL Last Edit by [employer] on 05/14/24 13:35 Results Reviewed Results Reviewed: Laboratory Last Values Urine pH (Auto) 6.0 05/14/24 13:33 Specific [place] (Auto) 1.025 05/14/24 13:33 Urine Protein (Auto) 100 mg/dL 05/14/24 13:33 Glucose (UA)(Auto) 0 mg/dL 05/14/24 13:33 Urine Blood (Auto) 0 Louie/uL 05/14/24 13:33 Urine Bilirubin (Auto) 1 mg/dL 05/14/24 13:33 Urine Urobilinogen (Auto) 0.2 mg/dL 05/14/24 13:33 Leukocyte Esterase (Auto) 70 Symone/uL 05/14/24 13:33 Assessment & Plan Assessment & Plan (1) Erectile dysfunction: Code(s): N52.9 - Male erectile dysfunction, unspecified Category: Medical (2) Low libido: Code(s): R68.82 - Decreased libido Category: Medical Plan In office urinalysis results reviewed with the patient today; as noted above; continue to follow-up with nephrology as planned for ongoing proteinuria. Discussed obtaining testosterone, free testosterone, LH, prolactin, estradiol, FSH and SHBG for further assessment evaluation. Start Cialis 5 mg daily. Discussed lifestyle modifications to assist with ED as well as overall health and well being. Prescription provided for p.r.n. dosing. He denies any bothersome urinary issues. Discussed signing medical release form to obtain previous urology records for continuity of care. He reports to he happy with current voiding paramters. Follow-up in 1-3 months with labs to be completed prior; or sooner with any issues, concerns, and or questions. Orders: Orders Lutenizing Hormone Today N52.9 - Male erectile dysfunction, unspecified, R68.82 - Decreased libido Follicle Stimulating Hormone Today N52.9 - Male erectile dysfunction, unspecified, R68.82 - Decreased libido Sex Hormone Binding Globulin Today N52.9 - Male erectile dysfunction, unspecified, R68.82 - Decreased libido AMB Urinalysis Automated Today Z13.9 - Encounter for screening, unspecified Prolactin Today N52.9 - Male erectile dysfunction, unspecified, R68.82 - Decreased libido Prostate Specific Antigen Today R68.82 - Decreased libido Testosterone, Free/Total Today N52.9 - Male erectile dysfunction, unspecified, R68.82 - Decreased libido Estradiol Ultra Sensitive Today E29.1 - Testicular hypofunction, N52.9 - Male erectile dysfunction, unspecified, R68.82 - Decreased libido Medications: New tadalafil (Cialis) [facility] [address] [id number] 5 mg PO DAILY 90 tabs 0RF 90 days tadalafil (Cialis) administer approximately 30-60 min before sexual activity; do not use more than 1 dose per 24hrs do not exceed more than 3 times per week. [facility] [address] [id number] 10 mg PO .PRN PRN 14 tabs 2RF sexual activity 30 days R68.82 - Decreased libido Patient Instructions: The patient had an opportunity to ask questions regarding the treatment plan. All questions were answered. Physical exam, labs, and imaging were discussed and reviewed in detail. As well as risks, benefits, and discussion of treatment choices. No major barriers to understanding were identified. The patient expressed understanding and agreement with the above treatment plan. The patient was made aware they should contact our office by phone for worsening of their current condition, the appearance of new symptoms, or with any questio ns or concerns. Compliance is encouraged with any medications and follow up testing that is ordered. It is a privilege to be allowed the opportunity to participate in? your urological care.? Again, if you have any questions or concerns If you have any questions or concerns please do not hesitate to contact me. The office is [phone]. This note is constructed using voice recognition software. While every effort has been made to ensure accuracy clay burner errors may have been included. Yours sincerely, LIZETH Melo Coding Level of Care Code New Pt Level 4 (45531) Diagnoses Erectile dysfunction N52.9 Low libido R68.82
== END 2024-05-14 13:45 | disposition home or self-care (01) ==
PROVIDERS: PCP Internal Medicine; Visit Provider Nurse Practitioner Family
DX: N52.9 Male erectile dysfunction, unspecified (principal); R68.82 Decreased libido; Z13.9 Encounter for screening, unspecified
CPT/HCPCS: 99204

== ENCOUNTER → 2024-05-14 12:56 | Outpatient (BNVA) | payer OTHER, SELFPAY | PROVIDERS: PCP Internal Medicine; Visit Provider Nurse Practitioner Family | DX: N52.9 Male erectile dysfunction, unspecified (principal); R68.82 Decreased libido | CPT/HCPCS: 81003; 99202 ==

== ENCOUNTER 2024-05-15 12:18 | Outpatient (REF) | payer OTHER, SELFPAY ==
[2024-05-15 13:22] LABS: Anion Gap 14 (12-20); Blood Urea Nitrogen 19 mg/dL (9-16); Carbon Dioxide 27 mmol/L (22-29); Chloride 102 mmol/L (96-108); Estimated Glomerular Filt Rate 41; Potassium 3.7 mmol/L (3.3-5.1); Sodium 139 mmol/L (135-145)
== END 2024-05-15 12:19 | disposition home or self-care (01) ==
LOC: HO.LAB 12:18
PROVIDERS: PCP Internal Medicine; Visit Provider Internal Medicine Nephrology
DX: N18.31 Chronic kidney disease, stage 3a (principal); I10 Essential (primary) hypertension; N17.9 Acute kidney failure, unspecified; N18.32 Chronic kidney disease, stage 3b
CPT/HCPCS: 36415; 80051; 82565; 84520

== ENCOUNTER 2024-05-16 14:07 | Outpatient (AMB) | payer OTHER, SELFPAY ==
--- NOTE | 2024-05-16 14:11 | HO.NEPHOV_ITS ---
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 He does not have any fevers, chills ,cough , chest pain shortness of breath, paroxysmal nocturnal dyspnea, orthopnea or pedal edema.. He is known to have CKD and hypertension. He denies any drug use or uvxg-eak-wxykntd medications. His urine output is good. He does not have any new skin rashes, epistaxis, sinusitis, recent antibiotic intake, joint swellings, hematuria. He has not been taking any anti hypertensives except clonidine and propranolol. [facility] Medical History SHAMIR (acute kidney injury) Chronic allergic rhinitis Atopy Allergies Asthma Mild recurrent major depression Acute hypoxemic respiratory failure Moderate major depression Atrial septal aneurysm Gsnvs-ql-ecyjuho kidney injury Anxiety Benign essential hypertension Tachycardia GERD (gastroesophageal reflux disease) Headache Hyperostosis Severe depression Moderate asthma Essential hypertension Mixed hyperlipidemia Surgical History History of hernia surgery Family History Father Seizures Mother No problems noted. Social History Household Members: Family Housing: Apartment Housing Other:: [facility] Do you presently have visiting nurse or other home services: Yes Alcohol intake: never Patient Tobacco Use Status: Former Tobacco user e-Cigarette/Vaping Use: Never Used Second Hand Smoke Exposure: No service: No Current occupational status: disabled Cognitive needs: No Hearing needs: No Vision needs: Yes Review of Systems Const All systems reviewed & are unremarkable except as noted in HPI and below Physical Exam Vital Signs: Last Vital Signs Pulse 62 05/16/24 14:12 BP 162/100 H 05/16/24 14:12 Pulse Ox 99 05/16/24 14:12 Oxygen Delivery Method Room Air 05/16/24 14:12 BMI result Body Mass Index 22.5 Const General: comfortable and no acute distress Orientation/consciousness: patient oriented x3 HEENT Head: Yes normocephalic Mouth: Normal oral and palatal mucosa present Eyes EOM: EOMs intact bilaterally Neck Neck: Yes supple Resp Auscultation: clear to auscultation bilaterally Cardio Jugular venous distension: no JVD Rate: regular rate GI Palpation (GI): Soft to palpation Auscultation: normal bowel sounds General: Yes no CVA tenderness Back/Spine/Pelvis Back: no CVA tenderness Skin General skin exam: no rashes or lesions noted Neuro General: patient oriented x3 and moves all extremities Extrem General: Yes no pedal edema Results Reviewed Nephrology Results: Sodium 139 mmol/L (135-145) 05/15/24 Potassium 3.7 mmol/L (3.3-5.1) 05/15/24 Chloride 102 mmol/L (96-108) 05/15/24 Carbon Dioxide 27 mmol/L (22-29) 05/15/24 BUN 19 mg/dL (9-16) H 05/15/24 Creatinine 1.73 mg/dL (0.5-1.4) H 05/15/24 Assessment & Plan Assessment & Plan (1) CKD (chronic kidney disease) stage 3, GFR 30-59 ml/min: Code(s): N18.30 - Chronic kidney disease, stage 3 unspecified Category: Medical Qualifiers: Chronic kidney disease stage 3 subtype: stage 3b (GFR 30-44) Qualified Code(s): N18.32 - Chronic kidney disease, stage 3b (2) Hypertension: Code(s): I10 - Essential (primary) hypertension Category: Medical Qualifiers: Hypertension type: secondary to other renal disorders Qualified Code(s): I15.1 - Hypertension secondary to other renal disorders Plan Known to have CKD 3- serum creatinine gone up from baseline but better now No clinical suspicion of thrombotic microangiopathy; No significant proteinuria Doppler renal artery - No RADHA; Was on ARB- D/Navdeep himself Reduced Clonidine to 0.2 mg bid but takes 0.3 mg bid Started taking propranol again by himself I increased nifedipine to 60 mg to take in the afternoon Labs ordered. No NSAID's; Has high IgG4 Good hydration; may need renal biopsy if creatinine worsens; FU 1 M Coding Level of Care Code Est Pt Level 4 (49518) Diagnoses Stage 3b chronic kidney disease N18.32 Chronic kidney disease stage 3 subtype: stage 3b (GFR 30-44) Hypertension secondary to other renal disorders I15.1 Hypertension type: secondary to other renal disorders
[2024-05-16 14:12] VITALS: BP 162/100; PULSE 62; O2SAT 99; BMI 22.5
== END 2024-05-16 14:26 | disposition home or self-care (01) ==
PROVIDERS: PCP Internal Medicine; Visit Provider Internal Medicine Nephrology
DX: N18.32 Chronic kidney disease, stage 3b (principal); I15.1 Hypertension secondary to other renal disorders
CPT/HCPCS: 99214

== ENCOUNTER → 2024-05-16 14:07 | Outpatient (BNVA) | payer OTHER, SELFPAY | PROVIDERS: PCP Internal Medicine; Visit Provider Internal Medicine Nephrology | DX: I15.1 Hypertension secondary to other renal disorders (principal); N18.32 Chronic kidney disease, stage 3b | CPT/HCPCS: 99212 ==

== ENCOUNTER 2024-07-09 10:18 | Outpatient (AMB) | payer OTHER, SELFPAY ==
--- NOTE | 2024-07-09 10:20 | HO.NEPHOV ---
Vital Signs 07/09/24 10:21 Height 5 ft 9 in Weight 151 lb BMI 22.3 BP 160/120 H Blood Pressure Location Rt brachial Position Sitting Pulse 89 Pulse Source Pulse Oximeter Pulse Oximetry (%) 98 Oxygen Delivery Method Room Air Intake Visit Reasons: Pt missed 06/15/24 appt/ Conf Integrity Analyst Required: No Accompanied by: Self / Same As Patient Allergies sumatriptan Allergy (Mild, Verified 07/09/24 10:21) headaches nifedipine Adverse Reaction (Intermediate, Verified 07/09/24 10:21) anxious lisinopril Adverse Reaction (Mild, Verified 07/09/24 10:21) Anxiety HPI Comments Details: Benjie is a 53-year-old male in follow-up of his chronic kidney disease. He does not have any fevers, chills ,cough , chest pain shortness of breath, paroxysmal nocturnal dyspnea, orthopnea or pedal edema.. He is known to have CKD and hypertension. He denies any drug use or oasj-hel-ckdloom medications. His urine output is good. He does not have any new skin rashes, epistaxis, sinusitis, recent antibiotic intake, joint swellings, hematuria. He has not been taking any anti hypertensives except clonidine and propranolol [facility] Medical History SHAMIR (acute kidney injury) Chronic allergic rhinitis Atopy Allergies Asthma Mild recurrent major depression Acute hypoxemic respiratory failure Moderate major depression Atrial septal aneurysm Duesv-cr-rcajttv kidney injury Anxiety Benign essential hypertension Tachycardia GERD (gastroesophageal reflux disease) Headache Hyperostosis Severe depression Moderate asthma Essential hypertension Mixed hyperlipidemia Surgical History History of hernia surgery Family History Father Seizures Mother No problems noted. Social History Household Members: Family Housing: Apartment Housing Other:: [facility] Do you presently have visiting nurse or other home services: Yes Alcohol intake: never Patient Tobacco Use Status: Former Tobacco user e-Cigarette/Vaping Use: Never Used Second Hand Smoke Exposure: No service: No Current occupational status: disabled Cognitive needs: No Hearing needs: No Vision needs: Yes Review of Systems Const All systems reviewed & are unremarkable except as noted in HPI and below Physical Exam Const General: comfortable and no acute distress Orientation/consciousness: patient oriented x3 HEENT Head: Yes normocephalic Mouth: Normal oral and palatal mucosa present Eyes EOM: EOMs intact bilaterally Neck Neck: Yes supple Resp Auscultation: clear to auscultation bilaterally Cardio Jugular venous distension: no JVD Rate: regular rate GI Palpation (GI): Soft to palpation Auscultation: normal bowel sounds General: Yes no CVA tenderness Back/Spine/Pelvis Back: no CVA tenderness Skin General skin exam: no rashes or lesions noted Neuro General: patient oriented x3 and moves all extremities Extrem General: Yes no pedal edema Results Reviewed Nephrology Results: Sodium 139 mmol/L (135-145) 05/15/24 Potassium 3.7 mmol/L (3.3-5.1) 05/15/24 Chloride 102 mmol/L (96-108) 05/15/24 Carbon Dioxide 27 mmol/L (22-29) 05/15/24 BUN 19 mg/dL (9-16) H 05/15/24 Creatinine 1.73 mg/dL (0.5-1.4) H 05/15/24 Assessment & Plan Assessment & Plan (1) CKD stage 3a, GFR 45-59 ml/min: Code(s): N18.31 - Chronic kidney disease, stage 3a Category: Medical (2) Hypertension: Code(s): I10 - Essential (primary) hypertension Category: Medical Qualifiers: Hypertension type: secondary to other renal disorders Qualified Code(s): I15.1 - Hypertension secondary to other renal disorders (3) CKD (chronic kidney disease) stage 3, GFR 30-59 ml/min: Code(s): N18.30 - Chronic kidney disease, stage 3 unspecified Category: Medical Qualifiers: Chronic kidney disease stage 3 subtype: stage 3b (GFR 30-44) Qualified Code(s): N18.32 - Chronic kidney disease, stage 3b Plan Known to have CKD 3- serum creatinine stable No clinical suspicion of thrombotic microangiopathy No significant proteinuria Doppler renal artery - No RADHA; Was on ARB- D/Navdeep himself On Clonidine 0.3 mg bid; He takes in the afternoon another dose himself (current regimen not prescribed but he does it on his own) Started taking propranol again by himself I asked him to take nifedipine 60 mg to take in the afternoon No NSAID's; Has high IgG4; Will be a candidate for SGLT2 i( CKD) Good hydration; may need renal biopsy if creatinine worsens; FU 3 M Orders: Orders Creatinine 3 Months N18.32 - Chronic kidney disease, stage 3b Blood Urea Nitrogen 3 Months N18.32 - Chronic kidney disease, stage 3b Calcium 3 Months N18.32 - Chronic kidney disease, stage 3b Protein Creatinine Ratio, Ur 3 Months N18.32 - Chronic kidney disease, stage 3b Vitamin D 25-OH Total Today N18.32 - Chronic kidney disease, stage 3b Electrolytes 3 Months N18.32 - Chronic kidney disease, stage 3b Protein Electrophoresis, Serum 3 Months N18.32 - Chronic kidney disease, stage 3b Hemoglobin A1c 3 Months N18.32 - Chronic kidney disease, stage 3b Parathyroid Hormone Intact Today N18.32 - Chronic kidney disease, stage 3b Medications: Refilled nifedipine ER 60 mg PO DAILY 30 tabs 4RF Coding Level of Care Code Est Pt Level 4 (57432) Diagnoses CKD stage 3a, GFR 45-59 ml/min N18.31 Hypertension secondary to other renal disorders I15.1 Hypertension type: secondary to other renal disorders Stage 3b chronic kidney disease N18.32 Chronic kidney disease stage 3 subtype: stage 3b (GFR 30-44)
[2024-07-09 10:21] VITALS: BP 160/120; PULSE 89; O2SAT 98; BMI 22.3
== END 2024-07-09 10:36 | disposition home or self-care (01) ==
PROVIDERS: PCP Internal Medicine; Visit Provider Internal Medicine Nephrology
DX: I15.1 Hypertension secondary to other renal disorders (principal); N18.32 Chronic kidney disease, stage 3b
CPT/HCPCS: 99214

== ENCOUNTER 2024-07-12 16:06 | Outpatient (AMB) | payer OTHER, SELFPAY ==
[2024-07-12 16:12] VITALS: BP 152/110; BMI 21.9
--- NOTE | 2024-07-12 16:12 | A.OFFPC_ITS ---
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 Required: No Accompanied by: Self / Same As Patient Allergies sumatriptan Allergy (Mild, Verified 07/12/24 16:24) headaches nifedipine Adverse Reaction (Intermediate, Verified 07/12/24 16:24) anxious lisinopril Adverse Reaction (Mild, Verified 07/12/24 16:24) Anxiety Medication List - Last Reconciled 07/12/24 by Greta Olivera MD clonidine HCl 0.3 mg PO TID dupilumab (Dupixent) loading dose: 600mg SC x 1, then 300mg SC every 2 weeks 4 weeks famotidine 40 mg PO BEDTIME 90 days fluticasone propionate 50 mcg/actuation 2 sprays intranasal DAILY 30 days kjgyjbzrybx-gwblkkwiu-svzfxzmq 200-62.5-25 mcg (Trelegy Ellipta) 1 inh inhalation DAILY 30 days gabapentin 400 mg PO BEDTIME 30 days ipratropium-albuterol 0.5 mg-3 mg(2.5 mg base)/3 mL 3 mL inhalation Q6-8H PRN loratadine 10 mg PO DAILY PRN 90 days nebulizers (VixOne Nebulizer-Adult Mask) As directed nifedipine ER 60 mg PO DAILY propranolol ER 30 mg (1/2 x 60 mg) PO DAILY 90 days sertraline 25 mg PO DAILY PRN 90 days tadalafil (Cialis) 5 mg PO DAILY 90 days tadalafil (Cialis) 10 mg PO .PRN PRN 30 days Ventolin HFA 90 mcg/actuation (albuterol sulfate) 2 puffs inhalation Q6H PRN 30 days NS Tobacco use date assessed: 07/12/24 Dental Screening Dental Screen Date: 07/12/24 Did you have a dental visit in the last 12 months?: No Did you have a dental problem in the last 6 months where you did not have access to dental care?: No Was dental information given to patient?: Patient has dentist HPI HPI Comments History of Present Illness Details This is a 54-year-old male that comes for his physical exam. Blood pressure elevated but has not take his nifedipine yet. Blood pressure will be recheck in 3 weeks by nurse navigator. Declines tetanus vaccine today. Has chronic kidney disease stage 3 follow by Nephrology in which GFR has improved to 41. He has severe major depression and I will restart him on sertraline. - Influenza vaccination consideration wa s addressed. - Hemoglobin levels and renal function ( GFR) were reviewed, showing improvement. - Counseling on avoiding NSAIDs to prote ct renal function. - Ongoing psoriasis treatment with Dupix ent resulted in skin improvement. [facility] Medical History (Updated 07/12/24 @ 16:43 by Greta Olivera MD) CKD stage 3a, GFR 45-59 ml/min SHAMIR (acute kidney injury) Chronic allergic rhinitis Atopy Allergies Asthma Mild recurrent major depression Acute hypoxemic respiratory failure Moderate major depression Atrial septal aneurysm Svack-gl-zkpphjs kidney injury Anxiety Benign essential hypertension Tachycardia GERD (gastroesophageal reflux disease) Headache Hyperostosis Severe depression Moderate asthma Essential hypertension Mixed hyperlipidemia Surgical History History of hernia surgery Family History Father Seizures Mother No problems noted. Social History Household Members: Family Housing: [facility] Do you presently have visiting nurse or other home services: Yes Alcohol intake: never Patient Tobacco Use Status: Former Tobacco user e-Cigarette/Vaping Use: Never Used Second Hand Smoke Exposure: No service: No Current occupational status: disabled Cognitive needs: No Hearing needs: No Vision needs: Yes Questionnaire PHQ-9 Over the last 2 weeks, how often have you been bothered by any of the following problems? 1. Little interest or pleasure in doing things: nearly every day 2. Feeling down, depressed, or hopeless: nearly every day 3. Trouble falling or staying asleep, or sleeping too much: nearly every day 4. Feeling tired or having little energy: nearly every day 5. Poor appetite or overeating: nearly every day 6. Feeling bad about yourself - or that you are a failure or have let yourself or your family down: several days 7. Trouble concentrating on things, such as reading the newspaper or watching television: nearly every day 8. Moving or speaking so slowly that other people could have noticed. Or the opposite - being so fidgety or restless that you have been moving around a lot more than usual: nearly every day 9. Thoughts that you would be better off or of hurting yourself in some way: not at all Total score: 22 Depression Screening Interpretation: Positive (no suicidal thoughts) Depression Screening Follow-up: Existing condition, In treatment and Follow-up Visit Requested Depression Screening Done: Yes 27271 - PHQ-9 Billing: Yes Source: Developed by Drs. Genaro Vásquez, Cindy Chávez, Remington Colvin and colleagues, with an educational kalli from [employer]. Thrive Questionnaire Date Thrive assessed: 07/12/24 I am a: Patient What is your living situation today?: I have a steady place to live Within the past 12 months, did the food you bought not last and you didn't have the money to get more?: Never true Within the past 12 months, did you worry whether your food would run out before you got money to buy more?: Never true Do you have trouble paying for medicines?: Yes Do you have trouble getting transportation to medical appointments?: No Do you have trouble paying your heating and electricity bill?: No Do you have trouble taking care of your child, family member or friend?: No Do you have trouble with day-to-day activities such as bathing, preparing meals, shopping, managing finances, etc.?: Yes Are you currently unemployed and looking for a job?: No Are you interested in more education?: No Please select the resources that you would like help with: Paying for medicine Currently or been in a relationship where the following occur: I choose not to answer THRIVE Score: 0 AUDIT C Alcohol Use Questionnaire (AUDIT-C) 1. How often do you have a drink containing alcohol?: Never Total Score: 0 Score Reviewed/Action Taken: No KHRIS-7 AMB Questionnaire KHRIS-7 Date KHRIS - 7 assessed: 07/12/24 Feeling nervous, anxious, or on edge: 3 = Nearly every day Not being able to stop or control worryin = Nearly every day Worrying too much about different things: 3 = Nearly every day Trouble relaxin = Nearly every day Being so restless that it is hard to sit still: 3 = Nearly every day Becoming easily annoyed or irritable: 3 = Nearly every day Feeling afraid as if something awful might happen: 1 = Several days Total KHRIS-7 score (0-4 normal; 5-9 mild; 10-14 moderate; 15-21 severe): 19 Source: Developed by Drs. Genaro Vásquez, Cindy Chávez, Remington Colvin and colleagues, with an educational kalli from [employer]. KHRIS-7 Assessment Billing KHRIS-7 Assessment Tool: KHRIS-7 Assessment 25191 Review of Systems Const All systems reviewed & are unremarkable except as noted in HPI and below Card Denies chest pain at rest, Denies chest pain with activity, Denies edema, Denies irregular heart rhythm, Denies claudication, Denies dyspnea, Denies dyspnea on exertion, Denies orthopnea, Denies paroxysmal nocturnal dyspnea and Denies slow heart rate Resp Denies cough, Denies dyspnea and Denies dyspnea on exertion GI Denies abdominal pain, Denies change in bowel habits, Denies excessive flatus, Denies nausea and Denies vomiting Physical exam (Primary Care) Vital Signs: Last Vital Signs BP 152/110 H 07/12/24 16:12 BMI result Body Mass Index 21.9 Tobacco/Smoking Status: Tobacco use Status Tobacco use date assessed 07/12/24 07/12/24 16:16 Patient Tobacco Use Status Former Tobacco user 07/12/24 16:16 e-Cigarette/Vaping Use Never Used 07/12/24 16:16 PHQ-9: PHQ-9 Score PHQ-9: Total score 22 07/12/24 16:27 Depression Screening Interpretation: Positive (no suicidal thoughts) Depression Screening Follow-up: Existing condition, In treatment and Follow-up Visit Requested Thrive Assessment: Date of Thrive Assessment Date Thrive assessed 07/12/24 07/12/24 16:16 Currently or been in a relationship where the following occur: I choose not to answer HENMT Head: Yes normal to inspection, Yes normocephalic and Yes atraumatic Ears: external ears normal Eyes General: appearance normal, both eyes and all related structures Eyelids: Yes eyelids normal Conjunctivae: conjunctivae normal Neck Neck: Yes normal visual inspection and Yes supple Resp Effort & Inspection: normal respiratory effort Auscultation: clear to auscultation bilaterally Cardio Jugular venous distension: no JVD Rate: regular rate Rhythm: regular rhythm Heart sounds: S1 normal heart sound present and S2 normal heart sound present GI Inspection: Yes normal to inspection Palpation (GI): Soft to palpation and nontender Auscultation: normal bowel sounds Skin General skin exam: no rashes or lesions noted Neuro General: no focal motor deficits Extrem General: Yes full ROM Psych Appearance: grossly normal Office Procedures Flu Questionnaire Does the patient have a severe egg allergy?: No Does the patient have severe life threatening allergies?: No Does the patient have a fever or illness today?: No Has the patient ever had Guillain-Harriet Syndrome?: No Has the patient ever had any past reaction to a flu shot?: No Immunizations Fluarix Triv [id number] (PF) 45 mcg (15 mcg x 3)/0.5 mL IM syringe Performing Provider: Gerta Olivera MD [place] [facility] [place] [facility] Administered by: DAX Robins on 07/12/24 16:40 Dose Route Admin Location Dispensed Lot Number Expiration Date [facility] Bak[employer] Deliverer 0.5 mL IM Left Deltoid 0.5 mL [id number] 12/31/24 [id number] [employer] VIS Given Date VIS Provided VIS Publication Date 07/12/24 Single Vaccine 21 Eligibility Eligibility Date Funding Source Not [facility] Eligible 07/12/24 Private Coding Level of Care Code Est Pt Prev Care 40-64y(23504) Diagnoses Physical exam Z00.00 Stage 3b chronic kidney disease N18.32 Chronic kidney disease stage 3 subtype: stage 3b (GFR 30-44) Severe major depression without psychotic features F32.2 Additional Codes PHQ-9 - 62747 - PHQ-9 Billing: Yes ([id number]) KHRIS-7 Assessment Billing - KHRIS-7 Assessment Tool: KHRIS-7 Assessment 12623 ([id number]) Time Spent (min) 32 Assessment & Plan Assessment & Plan (1) Physical exam: Code(s): Z00.00 - Encounter for general adult medical examination without abnormal findings Category: Medical (2) CKD (chronic kidney disease) stage 3, GFR 30-59 ml/min: Code(s): N18.30 - Chronic kidney disease, stage 3 unspecified Category: Medical Qualifiers: Chronic kidney disease stage 3 subtype: stage 3b (GFR 30-44) Qualified Code(s): N18.32 - Chronic kidney disease, stage 3b (3) Severe major depression without psychotic features: Code(s): F32.2 - Major depressive disorder, single episode, severe without psychotic features Category: Medical Plan Recheck blood pressure with nurse navigator in 3 weeks. Consider Tdap vaccine the next office visit. Labs for next office visit. Flu vaccine done today. Restart sertraline for his severe depression. Avoid NSAIDs for chronic kidney disease and follow with Nephrology. Orders: Orders Influenza [id number] Immunization Today Z23 - Encounter for immunization Medications: New Fluarix Triv [id number] (PF) (flu vacc [id number] 6mos up(PF)) 0.5 mL IM ONCE 0.5 mL 0RF NS Z23 - Encounter for immunization Refilled sertraline 25 mg PO DAILY 90 days PRN 90 tabs 1RF depression
== END 2024-07-12 16:42 | disposition home or self-care (01) ==
PROVIDERS: PCP Internal Medicine; Visit Provider Internal Medicine
DX: Z00.00 Encounter for general adult medical examination without abnormal findings (principal); N18.32 Chronic kidney disease, stage 3b; F32.2 Major depressive disorder, single episode, severe without psychotic features; Z23 Encounter for immunization

== ENCOUNTER → 2024-07-12 16:06 | Outpatient (BNVA) | payer OTHER, SELFPAY | PROVIDERS: PCP Internal Medicine; Visit Provider Internal Medicine | DX: Z00.00 Encounter for general adult medical examination without abnormal findings (principal); N18.32 Chronic kidney disease, stage 3b; F32.2 Major depressive disorder, single episode, severe without psychotic features; Z23 Encounter for immunization | CPT/HCPCS: 90471; 90656; 96127; 99396 ==

== ENCOUNTER 2024-08-10 12:00 | Outpatient (REF) | payer OTHER, SELFPAY ==
--- OUTSIDE RECORDS SUMMARY | 2024-08-10 13:04 | XMS_ITS | Clinical Summary ---
Author Organization [facility] Address [address] [place] [address] Care Team Providers Care Bridge Tender Name Role Phone Unavailable Primary Care Provider Unavailabl e Social History Tobacco Use Types Packs/Day Years Used Date Smoking Tobacco: Never Assessed Sex and Gender Information Value Date Recorded Sex Assigned at Not on file Gender Identity Not on file Sexual Orientation Not on file Plan of Treatment Health Maintenance Due Date Last Done Comments DTaP,Tdap,and Td Vaccines (1 - Tdap) 1987 Hepatitis B Vaccines (1 of 3 - 19+ 3-dose series) 1987 Zoster Vaccines (1 of 2) 2018 COVID-19 Vaccine (2023-2 5 season) 2024 Influenza Vaccine (#1) 2024 HIB Vaccines Aged Out No longer eligi ble based on patient's age to complete this topic HPV Vaccines Aged Out No longer eligi ble based on patient's age to complete this topic Hepatitis A Vaccines Aged Out No long er eligible based on patient's age to complete this topic IPV Vaccines Aged Out No longer eligi ble based on patient's age to complete this topic MMR Vaccines Aged Out No longer eligi ble based on patient's age to complete this topic Meningococcal ACWY Vaccine Aged Out N o longer eligible based on patient's age to complete this topic Pneumococcal Vaccine: Pediat rics (0 to 5 Years) and At-Risk Patients (6 to 64 Years) Aged Out No longer eligible b ased on patient's age to complete this topic RSV Immunization Patients Un darren 20 months Aged Out No longer eligible b ased on patient's age to complete this topic Varicella Vaccines Aged Out No longer eligible based on patient's age to complete this topic
--- OUTSIDE RECORDS SUMMARY | 2024-08-10 13:04 | XMS_ITS | Clinical Summary ---
Author Organization [facility] Facility Address [address] [place] [address] Care Team Providers Care Light Armored Reconnaissance Officer Name Role Phone Greta Ribeiro MD Primary Care Provider [phone] Medications Ventolin HFA 108 (90 Base) MCG/ACT inhaler 04/13/2021 Active betamethasone dipropionate 0.05 % cream 04/20/2021 Active cloNIDine (CATAPRES) 0.3 MG tablet 04/15/2021 Active famotidine (PEPCID) 40 MG tablet 01/29/2021 Active gabapentin (NEURONTIN) 800 MG tablet 02/18/2021 Active propranolol LA (INDERAL LA) 60 MG 24 hr capsule 02/25/2021 Activ e rosuvastatin (CRESTOR) 10 MG tablet 02/18/2021 Active Social History Tobacco Use Types Packs/Day Years Used Date Smoking Tobacco: Never Assessed Sex and Gender Information Value Date Recorded Sex Assigned at Not on file Legal Sex Male 3:05 PM EDT Gender Identity Not on file Sexual Orientation Not on file Plan of Treatment Health Maintenance Due Date Last Done Comments Hepatitis B Vaccine (1 of 3 - 19+ 3-dose series) 1987 Colorectal Cancer Screening: Annual FOBT 2017 Colorectal Cancer Screening: Colonoscopy 2017 Colorectal Cancer Screening: Sigmoidoscopy 2017 Influenza Vaccine (#1) 2024 Pneumococcal Vaccine: Pediat rics (0 to 5 Years) and At-Risk Patients (6 to 64 Years) Aged Out No longer eligible b ased on patient's age to complete this topic Insurance [facility] [place] [place] [id number] [facility] Care Teams Light Armored Reconnaissance Officer Relationship Specialty Start Date End Date Great Ribeiro MD [address] [place], [place] PCP - General Internal Medicine 09/25/20
[2024-08-10 13:55] LABS: Prostate Specific Antigen 1.57 ng/mL (<0.05-4.0)
[2024-08-11 08:22] LABS: Follicle Stimulating Hormone 9.9 mIU/mL (1.4-12.8); Sex Hormone Binding Globulin 36 nmol/L (22-77)
[2024-08-17 02:34] LABS: Testosterone, Free 88.6 pg/mL (35.0-155.0); Testosterone, Total 484 ng/dL (250-1100)
[2024-08-19 04:09] LABS: Estradiol Ultra Sensitive 29 pg/mL (< OR = 29)
== END 2024-08-10 12:01 | disposition home or self-care (01) ==
LOC: HO.LAB 12:00
PROVIDERS: PCP Internal Medicine; Visit Provider Nurse Practitioner Family
DX: R68.82 Decreased libido (principal); N52.9 Male erectile dysfunction, unspecified; E29.1 Testicular hypofunction; Z12.5 Encounter for screening for malignant neoplasm of prostate
CPT/HCPCS: 36415; 82670; 83001; 83002; 84146; 84153; 84270; 84402; 84403

== ENCOUNTER → 2024-08-13 14:02 | Outpatient (BNVA) | payer OTHER, SELFPAY | PROVIDERS: PCP Internal Medicine; Visit Provider Hospitalist | DX: J45.50 Severe persistent asthma, uncomplicated (principal); J30.9 Allergic rhinitis, unspecified; T78.40XA Allergy, unspecified, initial encounter; L30.9 Dermatitis, unspecified; Z88.9 Allergy status to unspecified drugs, medicaments and biological substances | CPT/HCPCS: 99212 ==

== ENCOUNTER → 2024-08-13 14:26 | Outpatient (AMB) | payer OTHER, SELFPAY ==
[2024-08-13 14:07] VITALS: BP 170/120; PULSE 78; O2SAT 100; BMI 22.5
--- NOTE | 2024-08-13 14:07 | MHC.OFFVIS ---
Vital Signs 08/13/24 14:07 Height 5 ft 9 in Weight 152 lb 1.903 oz BMI 22.5 BP 170/120 H Blood Pressure Location Rt brachial Position Sitting Pulse 78 Pulse Source Pulse Oximeter Pulse Oximetry (%) 100 Oxygen Delivery Method Room Air Intake Visit Reasons: Asthma Allergies sumatriptan Allergy (Mild, Verified 08/13/24 14:10) headaches nifedipine Adverse Reaction (Intermediate, Verified 08/13/24 14:10) anxious lisinopril Adverse Reaction (Mild, Verified 08/13/24 14:10) Anxiety HPI Comments Details: The patient is a 54-year-old gentleman known significant asthma in addition to atopic dermatitis. He does follow-up closely with dermatology. He has had multiple exacerbations from his breathing standpoint. The last time she was evaluated in the ER was back in October. He did have a chest x-ray without any significant disease. The patient had a chest x-ray without any acute disease which is reassuring. He did have blood work demonstrating significant eosinophilia 1500. explained to him that this is significantly elevated. Quickly after taking prednisone the eosinophils decreased to 0. His symptoms drastically improved when he is on prednisone. He was placed on Trelegy 100 which seems to be effective in helping his symptoms. He continues to have wheezing on and off throughout the day. He also uses her rescue inhaler typically more than twice a week. Therefore, the patient does have severe persistent asthma. Appears to have atopy with significant chronic rhinitis and what appears to be atopic dermatitis. Will go ahead and request blood work including allergy testing. The patient also needs pulmonary function studies. Will continue to optimize his respiratory therapy. However, if he does not improve then I do believe the biologic therapy will be warranted at that time. 04/13/2024 the patient is here for a pulmonary follow-up visit. The patient has been still struggling with breathing. The Trelegy inhaler has been helpful. Although he still having hard time. He has significant allergies based on his allergy testing. His IgE levels up to above 7000 in his eosinophils are above a 1000. 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 He has significant atopic dermatitis along with chronic rhinitis. He has maximizing his respiratory therapy still continues to be symptomatic. He is having hard time we did breathing now. Little inspiratory and expiratory wheezing. Will go ahead and give him a course of prednisone at this time. The patient will be a great candidate for biologic therapy with Dupixent. Will go ahead and request Dupixent at this time. 08/13/2024 the patient is here for a pulmonary follow-up visit. Overall the patient has been doing well. Dupixent injections have been extremely helpful for his atopic dermatitis in addition to his asthma. Although after a week he starts having symptoms again. He is wondering if there is a stronger dose. He is already on the maximum dose of Dupixent however. He continues to have chronic bronchitis. The patient will benefit from a Daliresp as a medication for his chronic obstructive airway disease into try to minimize use of prednisone. Will request a smaller dose specially because of his weight minimize weight loss. If he tolerates it and we need to increase it further we can increase it to the 500 mcg dose. Will follow-up in 6 months. If he has any issues prior to that he will call for an earlier assessment. [facility] Medical History (Updated 07/12/24 @ 16:43 by Greta Olivera MD) CKD stage 3a, GFR 45-59 ml/min SHAMIR (acute kidney injury) Chronic allergic rhinitis Atopy Allergies Asthma Mild recurrent major depression Acute hypoxemic respiratory failure Moderate major depression Atrial septal aneurysm Mgrdd-oh-imfulpg kidney injury Anxiety Benign essential hypertension Tachycardia GERD (gastroesophageal reflux disease) Headache Hyperostosis Severe depression Moderate asthma Essential hypertension Mixed hyperlipidemia Surgical History History of hernia surgery Family History Father Seizures Mother No problems noted. Social History Household Members: Family Housing: Apartment Housing Other:: [facility] Do you presently have visiting nurse or other home services: Yes Alcohol intake: never Patient Tobacco Use Status: Former Tobacco user e-Cigarette/Vaping Use: Never Used Second Hand Smoke Exposure: No service: No Current occupational status: disabled Cognitive needs: No Hearing needs: No Vision needs: Yes Review of Systems Const Denies fatigue, Denies fever(s) and Reports weight loss Eyes Reports no additional complaints ENT Reports nasal congestion and Reports nasal discharge Card Denies chest pain Resp Reports cough and Reports wheezing GI Reports dyspepsia and Reports heartburn Musc Reports no additional complaints Skin/Breast Reports rash Endo Denies fatigue Aller/Immun Reports wheezing Physical Exam Vital Signs: Last Vital Signs Pulse 78 08/13/24 14:07 BP 170/120 H 08/13/24 14:07 Pulse Ox 100 08/13/24 14:07 Oxygen Delivery Method Room Air 08/13/24 14:07 BMI result Body Mass Index 22.5 Const General: comfortable HEENT Head: Yes normocephalic Neck Neck: Yes supple Chest Chest palpation & inspection: normal inspection of the chest Resp Effort & Inspection: normal respiratory effort Auscultation: clear to auscultation bilaterally and no wheezes Cardio Heart sounds: S1 normal heart sound present and S2 normal heart sound present GI Palpation (GI): Soft to palpation Skin Rashes: rashes noted Extrem General: Yes no clubbing, cyanosis or edema Assessment & Plan Assessment & Plan (1) Asthma: Code(s): J45.909 - Unspecified asthma, uncomplicated Category: Medical Qualifiers: Asthma complication type: uncomplicated Asthma persistence: persistent Asthma severity: severe Qualified Code(s): J45.50 - Severe persistent asthma, uncomplicated (2) Allergies: Code(s): T78.40XA - Allergy, unspecified, initial encounter Category: Medical Qualifiers: Encounter type: initial encounter Qualified Code(s): T78.40XA - Allergy, unspecified, initial encounter (3) Atopy: Code(s): Z88.9 - Allergy status to unspecified drugs, medicaments and biological substances Category: Medical (4) Chronic allergic rhinitis: Code(s): J30.9 - Allergic rhinitis, unspecified Category: Medical (5) Eczematous dermatitis: Code(s): L30.9 - Dermatitis, unspecified Category: Medical Qualifiers: Eczema type: unspecified Qualified Code(s): L30.9 - Dermatitis, unspecified Plan Trelegy 200 Singulair SOFIA as needed antihistamine therapy Dupixent for his severe persistent asthma fluticasone nasal spray start Daliresp 250mcg F/U 4-6 months Medications: New roflumilast (Daliresp) 250 mcg PO DAILY 30 tabs 11RF 30 days J44.9 - Chronic obstructive pulmonary disease, unspecified Coding Level of Care Code Tele Est Pt Level 4 (05885) Diagnoses Severe persistent asthma without complication J45.50 Asthma complication type: uncomplicated Asthma persistence: persistent Asthma severity: severe Allergy, initial encounter T78.40XA Encounter type: initial encounter Atopy Z88.9 Chronic allergic rhinitis J30.9 Eczema, unspecified type L30.9 Eczema type: unspecified Time Spent (min) 16
== END | disposition home or self-care (01) ==
PROVIDERS: PCP Internal Medicine; Visit Provider Hospitalist
DX: J45.50 Severe persistent asthma, uncomplicated (principal); T78.40XA Allergy, unspecified, initial encounter; Z88.9 Allergy status to unspecified drugs, medicaments and biological substances; J30.9 Allergic rhinitis, unspecified; L30.9 Dermatitis, unspecified
CPT/HCPCS: 99214

== ENCOUNTER 2024-10-09 12:39 | Outpatient (REF) | payer OTHER, SELFPAY ==
[2024-10-09 13:57] LABS: Estimated Average Glucose 111 mg/dL; Hemoglobin A1C 134.3972 umol/L; Hemoglobin A1c % 5.5 % (<6.0); Total Hemoglobin (HGBA1C) 3714.1619 umol/L
[2024-10-09 14:22] LABS: Creatinine Urine 133.12 mg/dL; Protein/Creatinine Ratio, Ur 0.17 (<0.2); Total Protein Urine Random 23 mg/dL (<12)
[2024-10-09 14:31] LABS: Anion Gap 14 (12-20); Blood Urea Nitrogen 24 mg/dL (9-16); Calcium 9.6 mg/dL (8.4-10.2); Carbon Dioxide 27 mmol/L (22-29); Chloride 105 mmol/L (96-108); Estimated Glomerular Filt Rate 40; Potassium 4.1 mmol/L (3.3-5.1); Sodium 142 mmol/L (135-145)
[2024-10-09 14:32] LABS: Parathyroid Hormone Intact 68.9 pg/mL (8.7-77.1)
[2024-10-09 14:50] LABS: Vitamin D 25-OH Total 57.9 ng/mL (>30)
--- OUTSIDE RECORDS SUMMARY | 2024-10-09 15:13 | XMS_ITS | Clinical Summary ---
Author Organization [facility] ity Address [address] [place] [address] Care Team Providers Care Appliance Worker Name Role Phone Unavailable Primary Care Provider Unavailabl e Social History Tobacco Use Types Packs/Day Years Used Date Smoking Tobacco: Never Assessed Sex and Gender Information Value Date Recorded Sex Assigned at Not on file Legal Sex Male 11:11 AM EST Gender Identity Not on file Sexual Orientation Not on file Plan of Treatment Health Maintenance Due Date Last Done Comments DTaP,Tdap,and Td Vaccines (1 - Tdap) 1987 Hepatitis B Vaccines (1 of 3 - 19+ 3-dose series) 1987 Pneumococcal Vaccine: 50+ Ye ars (1 of 1 - PCV) 2018 Zoster Vaccines (1 of 2) 2018 COVID-19 Vaccine ( - 2023-2 5 season) 2024 Influenza Vaccine (#1) 2024 [...] patient's age to complete this topic Meningococcal B Vaccine Aged Out No l onger eligible based on patient's age to complete [...]
--- OUTSIDE RECORDS SUMMARY | 2024-10-09 15:13 | XMS_ITS | Clinical Summary ---
Author Organization [facility] Facility Address [address] [place] [address] Care Team Providers Care Edge Roller Name Role Phone Greta Ribeiro MD Primary Care Provider [phone] Medications Ventolin HFA 108 (90 Base) MCG/ACT [...] Colorectal Cancer Screening: Sigmoidoscopy 2017 Influenza Vaccine (Season Ended) 2025 Pneumococcal Vaccine: Pediat rics (0 to 5 Years) and At-Risk Patients (6 to 64 Years) Aged Out No longer eligible b ased on patient's age to complete this topic Insurance [facility] [id number] [facility] Care Teams Edge Roller Relationship Specialty Start Date End Date Greta Ribeiro MD [address] [place], [place] PCP - General Internal Medicine 09/25/20
[2024-10-10 21:33] LABS: Prot Elec - Albumin 4.3 g/dL (3.8-4.8); Prot Elec - Alpha1 0.3 g/dL (0.2-0.3); Prot Elec - Alpha2 0.9 g/dL (0.5-0.9); Prot Elec - Beta 1 0.4 g/dL (0.4-0.6); Prot Elec - Beta 2 0.4 g/dL (0.2-0.5); Prot Elec - Gamma 0.8 g/dL (0.8-1.7)
== END 2024-10-09 12:40 | disposition home or self-care (01) ==
LOC: HO.LAB 12:39
PROVIDERS: PCP Internal Medicine; Visit Provider Internal Medicine Nephrology
DX: N18.32 Chronic kidney disease, stage 3b (principal); I10 Essential (primary) hypertension; Z13.1 Encounter for screening for diabetes mellitus
CPT/HCPCS: 36415; 80051; 82306; 82310; 82565; 82570; 83036; 83970; 84156; 84165; 84520

== ENCOUNTER 2024-10-10 13:42 | Outpatient (AMB) | payer OTHER, SELFPAY ==
--- NOTE | 2024-10-10 13:40 | HO.NEPHOV_ITS ---
Vital Signs 10/10/24 13:42 Height 5 ft 9 in Weight 147 lb 4 oz BMI 21.7 BP 144/90 H Blood Pressure Location Lt brachial Position Sitting Pulse 78 Pulse Source Pulse Oximeter Pulse Oximetry (%) 98 Oxygen Delivery Method Room Air Intake Visit Reasons: 3 Months-Conf Smoking Tobacco Packer Hand Required: No Accompanied by: Self / Same As Patient Allergies sumatriptan Allergy (Mild, Verified 10/10/24 13:41) headaches nifedipine Adverse Reaction (Intermediate, Verified 10/10/24 13:41) anxious lisinopril Adverse Reaction (Mild, Verified 10/10/24 13:41) Anxiety HPI Comments Details: Benjie is a 54-year-old male who was seen in follow-up of his chronic kidney disease. He does not have any fevers, chills ,cough , chest pain shortness of breath, paroxysmal nocturnal dyspnea, orthopnea or pedal edema.. He is known to have CKD and hypertension. He denies any drug use or bpcb-bwd-pbcuuyo medications. His urine output is good. He does not have any new skin rashes, epistaxis, sinusitis, recent antibiotic intake, joint swellings, hematuria. He has not been taking any anti hypertensives except clonidine and propranolol [facility] Medical History (Updated 07/12/24 @ 16:43 by Greta Olivera MD) CKD stage 3a, GFR 45-59 ml/min SHAMIR (acute kidney injury) Chronic allergic rhinitis Atopy Allergies Asthma Mild recurrent major depression Acute hypoxemic respiratory failure Moderate major depression Atrial septal aneurysm Cgzzp-ao-dgjpxcw kidney injury Anxiety Benign essential hypertension Tachycardia GERD (gastroesophageal reflux disease) Headache Hyperostosis Severe depression Moderate asthma Essential hypertension Mixed hyperlipidemia Surgical History History of hernia surgery Family History Father Seizures Mother No problems noted. Social History Household Members: Family Housing: Apartment Housing Other:: townhouse Do you presently have visiting nurse or other home services: Yes Alcohol intake: never Patient Tobacco Use Status: Former Tobacco user e-Cigarette/Vaping Use: Never Used Second Hand Smoke Exposure: No service: No Current occupational status: disabled Cognitive needs: No Hearing needs: No Vision needs: Yes Review of Systems Const All systems reviewed & are unremarkable except as noted in HPI and below Physical Exam Const General: comfortable and no acute distress Orientation/consciousness: patient oriented x3 HEENT Head: Yes normocephalic Mouth: Normal oral and palatal mucosa present Eyes EOM: EOMs intact bilaterally Neck Neck: Yes supple Resp Auscultation: clear to auscultation bilaterally Cardio Jugular venous distension: no JVD Rate: regular rate GI Palpation (GI): Soft to palpation Auscultation: normal bowel sounds General: Yes no CVA tenderness Back/Spine/Pelvis Back: no CVA tenderness Skin General skin exam: no rashes or lesions noted Neuro General: patient oriented x3 and moves all extremities Extrem General: Yes no pedal edema Results Reviewed Nephrology Results: Sodium 142 mmol/L (135-145) 10/09/24 Potassium 4.1 mmol/L (3.3-5.1) 10/09/24 Chloride 105 mmol/L (96-108) 10/09/24 Carbon Dioxide 27 mmol/L (22-29) 10/09/24 BUN 24 mg/dL (9-16) H 10/09/24 Creatinine 1.77 mg/dL (0.5-1.4) H 10/09/24 Calcium 9.6 mg/dL (8.4-10.2) 10/09/24 PTH Intact 68.9 pg/mL (8.7-77.1) 10/09/24 Urine Creatinine 133.12 mg/dL 10/09/24 Protein/Creatinin Ratio 0.17 (<0.2) 10/09/24 Assessment & Plan Assessment & Plan (1) CKD (chronic kidney disease) stage 3, GFR 30-59 ml/min: Code(s): N18.30 - Chronic kidney disease, stage 3 unspecified Category: Medical Qualifiers: Chronic kidney disease stage 3 subtype: stage 3b (GFR 30-44) Qualified Code(s): N18.32 - Chronic kidney disease, stage 3b (2) Essential hypertension: Code(s): I10 - Essential (primary) hypertension Category: Medical Plan Known to have CKD 3- serum creatinine stable No clinical suspicion of thrombotic microangiopathy No significant proteinuria Doppler renal artery - No RADHA; Was on ARB- D/Navdeep himself On Clonidine 0.3 mg bid; Taking propranol again by himself (current regimen not prescribed but he does it on his own) Does not want to take Nifedipine as its causing anxiety Started Amlodipine 2.5 mg in the afternoon No NSAID's; Has high IgG4; Will be a candidate for SGLT2 i( CKD) Good hydration; may need renal biopsy if creatinine worsens; FU 3 M Orders: Orders Electrolytes 3 Months N18.32 - Chronic kidney disease, stage 3b Creatinine 3 Months N18.32 - Chronic kidney disease, stage 3b Blood Urea Nitrogen 3 Months N18.32 - Chronic kidney disease, stage 3b Medications: New amlodipine 2.5 mg PO DAILY 30 tabs 3RF Coding Level of Care Code Est Pt Level 4 (22109) Diagnoses Stage 3b chronic kidney disease N18.32 Chronic kidney disease stage 3 subtype: stage 3b (GFR 30-44) Essential hypertension I10
[2024-10-10 13:42] VITALS: BP 144/90; PULSE 78; O2SAT 98; BMI 21.7
--- OUTSIDE RECORDS SUMMARY | 2024-10-10 15:56 | XMS_ITS | Clinical Summary ---
Author Organization [facility] ity Address [address] [place] [address] Care Team Providers Care Pivot Maker Name Role Phone Unavailable Primary Care Provider [...] - 2023-2 5 season) 2024 Influenza Vaccine (Season Ended) 2025 HIB Vaccines Aged Out No longer eligi [...]
--- OUTSIDE RECORDS SUMMARY | 2024-10-10 15:56 | XMS_ITS | Clinical Summary ---
Author Organization [facility] Facility Address [address] [place] [address] Care Team Providers Care Travelers' Aid Worker Name Role Phone Greta Ribeiro MD Primary Care Provider [phone] Medications Ventolin HFA 108 (90 Base) MCG/ACT [...] patient's age to complete this topic Insurance [facility] [place] [id number] [facility] Care Teams Travelers' Aid Worker Relationship Specialty Start Date End Date Greta Ribeiro MD [address] [place], [place] PCP - General Internal Medicine 09/25/20
== END 2024-10-10 13:52 | disposition home or self-care (01) ==
PROVIDERS: PCP Internal Medicine; Visit Provider Internal Medicine Nephrology
DX: N18.32 Chronic kidney disease, stage 3b (principal); I10 Essential (primary) hypertension
CPT/HCPCS: 99214

== ENCOUNTER → 2024-10-10 13:42 | Outpatient (BNVA) | payer OTHER, SELFPAY | PROVIDERS: PCP Internal Medicine; Visit Provider Internal Medicine Nephrology | DX: I12.9 Hypertensive chronic kidney disease with stage 1 through stage 4 chronic kidney disease, or unspecified chronic kidney disease (principal); N18.32 Chronic kidney disease, stage 3b | CPT/HCPCS: 99212 ==

== ENCOUNTER 2024-11-13 14:15 | Outpatient (AMB) | payer OTHER, SELFPAY ==
[2024-11-13 14:16] VITALS: BP 168/92; BMI 20.2
--- NOTE | 2024-11-13 14:16 | MHC.PC.OV ---
Vital Signs 11/13/24 14:16 Height 5 ft 9 in Weight 137 lb BMI 20.2 BP 168/92 H Blood Pressure Location Lt brachial Position Sitting Intake Visit Reasons: bp Intake Note: Patient here for a follow up BP Bleach Tester Required: No Accompanied by: Self / Same As Patient Allergies sumatriptan Allergy (Mild, Verified 11/13/24 14:35) headaches nifedipine Adverse Reaction (Intermediate, Verified 11/13/24 14:35) anxious lisinopril Adverse Reaction (Mild, Verified 11/13/24 14:35) Anxiety Medication List - Last Reconciled 11/13/24 by Greta Olivera MD amlodipine 2.5 mg PO DAILY clonidine HCl 0.3 mg PO BID dupilumab (Dupixent) loading dose: 600mg SC x 1, then 300mg SC every 2 weeks 4 weeks famotidine 40 mg PO BEDTIME 90 days fluticasone propionate 50 mcg/actuation 2 sprays intranasal DAILY 30 days kgwqhageblt-cdkelzgts-qpuvcgcu 200-62.5-25 mcg (Trelegy Ellipta) 1 inh inhalation DAILY 30 days gabapentin 400 mg PO BEDTIME 30 days ipratropium-albuterol 0.5 mg-3 mg(2.5 mg base)/3 mL 3 mL inhalation Q6-8H PRN loratadine 10 mg PO DAILY PRN 90 days nebulizers (VixOne Nebulizer-Adult Mask) As directed propranolol ER 30 mg (1/2 x 60 mg) PO DAILY 90 days roflumilast (Daliresp) 250 mcg PO DAILY 30 days sertraline 25 mg PO DAILY PRN 90 days tadalafil (Cialis) 5 mg PO DAILY 90 days tadalafil (Cialis) 10 mg PO .PRN PRN 30 days Ventolin HFA 90 mcg/actuation (albuterol sulfate) 2 puffs inhalation Q6H PRN 30 days NS Tobacco use date assessed: 07/12/24 Dental Screening Dental Screen Date: 07/12/24 HPI HPI Comments History of Present Illness Details The patient is a 54-year-old male presenting with a follow-up for hypertension management and asthma exacerbation. He has been managing essential hypertension with various medications, including amlodipine and propranolol. Clonidine was initially taken at 0.3 mg twice daily, but he has halved the dose due to significant weight loss, which seemed to reduce blood pressure excessively. The patient experiences seasonal asthma, intensified during the spring, necessitating use of Ventolin and sought care for an acute exacerbation due to lack of nebulizer albuterol. Aside from routine asthma maintenance with Trelegy, his psoriasis is noted to worsen with emotional stressors, although no new treatments were discussed this visit. Chronic kidney disease is acknowledged with a GFR of 40, with recommendations to maintain current management while assessing renal function in three months. Depression and anxiety continue to be treated with sertraline, accompanied by Cialis for erectile dysfunction as needed. His last A1c indicates he does not have diabetes, and he mentions an aversion to colonoscopy screening despite upcoming evaluation for colon cancer. [facility] Medical History (Updated 11/13/24 @ 15:17 by Greta Olivera MD) Mild recurrent major depression Severe major depression without psychotic features CKD stage 3a, GFR 45-59 ml/min SHAMIR (acute kidney injury) Chronic allergic rhinitis Atopy Allergies Asthma Acute hypoxemic respiratory failure Moderate major depression Atrial septal aneurysm Qorhp-kb-guldpzt kidney injury Anxiety Benign essential hypertension Tachycardia GERD (gastroesophageal reflux disease) Headache Hyperostosis Severe depression Moderate asthma Essential hypertension Mixed hyperlipidemia Surgical History History of hernia surgery Family History Father Seizures Mother No problems noted. Social History Household Members: Family Housing: Apartment Housing Other:: [facility] Do you presently have visiting nurse or other home services: Yes Alcohol intake: never Patient Tobacco Use Status: Former Tobacco user e-Cigarette/Vaping Use: Never Used Second Hand Smoke Exposure: No service: No Current occupational status: disabled Cognitive needs: No Hearing needs: No Vision needs: Yes Questionnaire Thrive Questionnaire Date Thrive assessed: 07/12/24 I am a: Patient What is your living situation today?: I have a steady place to live Within the past 12 months, did the food you bought not last and you didn't have the money to get more?: Never true Within the past 12 months, did you worry whether your food would run out before you got money to buy more?: Never true Do you have trouble paying for medicines?: Yes Do you have trouble getting transportation to medical appointments?: No Do you have trouble paying your heating and electricity bill?: No Do you have trouble taking care of your child, family member or friend?: No Do you have trouble with day-to-day activities such as bathing, preparing meals, shopping, managing finances, etc.?: Yes Are you currently unemployed and looking for a job?: No Are you interested in more education?: No Please select the resources that you would like help with: Paying for medicine Currently or been in a relationship where the following occur: I choose not to answer THRIVE Score: 0 KHRIS-7 AMB Questionnaire KHRIS-7 Date KHRIS - 7 assessed: 07/12/24 Source: Developed by Drs. Genaro Vásquez, Cindy Chávez, Remington Colvin and colleagues, with an educational kalli from [employer]. Review of Systems Const All systems reviewed & are unremarkable except as noted in HPI and below Card Denies chest pain at rest, Denies chest pain with activity, Denies edema, Denies irregular heart rhythm, Denies claudication, Denies dyspnea, Denies dyspnea on exertion, Denies orthopnea, Denies paroxysmal nocturnal dyspnea and Denies slow heart rate Resp Denies cough, Denies dyspnea and Denies dyspnea on exertion GI Denies abdominal pain, Denies change in bowel habits, Denies excessive flatus, Denies nausea and Denies vomiting Denies urinary hesitancy, Denies urinary incontinence and Denies urinary urgency Musc Denies abnormal gait, Denies atrophy, Denies deformity and Denies limited range of motion Skin/Breast Denies bleeding lesions, Denies changing lesions and Denies rash Neuro Denies abnormal gait, Denies behavioral changes and Denies lack of coordination Psych Denies behavioral changes Physical exam (Primary Care) Vital Signs: Last Vital Signs BP 168/92 H 11/13/24 14:16 BMI result Body Mass Index 20.2 Tobacco/Smoking Status: Tobacco use Status Tobacco use date assessed 07/12/24 11/13/24 14:23 Patient Tobacco Use Status Former Tobacco user 11/13/24 14:23 e-Cigarette/Vaping Use Never Used 11/13/24 14:23 Thrive Assessment: Date of Thrive Assessment Date Thrive assessed 07/12/24 11/13/24 14:23 Currently or been in a relationship where the following occur: I choose not to answer Resp Effort & Inspection: normal respiratory effort Auscultation: clear to auscultation bilaterally Cardio Jugular venous distension: no JVD Rate: regular rate Rhythm: regular rhythm Heart sounds: S1 normal heart sound present and S2 normal heart sound present Extrem General: Yes full ROM Coding Level of Care Code Est Pt Level 4 (47279) Complex EM visit Add On G2211 Diagnoses Mild recurrent major depression F33.0 Stage 3b chronic kidney disease N18.32 Chronic kidney disease stage 3 subtype: stage 3b (GFR 30-44) Moderate persistent asthma without complication J45.40 Asthma complication type: uncomplicated Hypertension secondary to other renal disorders I15.1 Hypertension type: secondary to other renal disorders Anxiety F41.9 Time Spent (min) 22 Assessment & Plan Assessment & Plan (1) Mild recurrent major depression: Code(s): F33.0 - Major depressive disorder, recurrent, mild Category: Medical (2) CKD (chronic kidney disease) stage 3, GFR 30-59 ml/min: Code(s): N18.30 - Chronic kidney disease, stage 3 unspecified Category: Medical Qualifiers: Chronic kidney disease stage 3 subtype: stage 3b (GFR 30-44) Qualified Code(s): N18.32 - Chronic kidney disease, stage 3b (3) Moderate persistent asthma: Code(s): J45.40 - Moderate persistent asthma, uncomplicated Category: Medical Qualifiers: Asthma complication type: uncomplicated Qualified Code(s): J45.40 - Moderate persistent asthma, uncomplicated (4) Hypertension: Code(s): I10 - Essential (primary) hypertension Category: Medical Qualifiers: Hypertension type: secondary to other renal disorders Qualified Code(s): I15.1 - Hypertension secondary to other renal disorders (5) Anxiety: Code(s): F41.9 - Anxiety disorder, unspecified Category: Medical Plan Seasonal asthma requires enhanced home control measures, necessitating a new nebulizer solution to accompany inhaler use. Psoriasis and depression with anxiety are maintained on current regimens, while chronic kidney monitoring is continued with a follow-up in three months. Medication allergies are addressed with alternative options, and patient education on the importance of screening measures for colon cancer is critical.: Patient was informed and verbally consented to the use of an ambient scribe for clinic note documentation during this visit. I explained the rationale for altering his clonidine dosage to prevent further reductions in blood pressure due to weight change. The benefits of using a nebulizer solution for asthma attacks were thoroughly discussed. I encouraged further kidney function evaluation with his project consultant, emphasizing the management of CKD at its current stage. The necessity of colonoscopy for cancer screening was counseled, although the patient expressed reluctance. I stressed the importance of continued mental health management and safe handling of medication allergens. Follow-up intervals and anticipated adjustments were laid out, ensuring the patient understood each intervention and its significance. Medications: New albuterol sulfate 2.5 mg (3 mL) inhalation Q6H PRN 360 mL 0RF bronchospasm 30 days propranolol 20 mg PO BID 60 tabs 0RF 30 days Discontinued propranolol ER Discontinued Reason: Patient Completed Course 30 mg (1/2 x 60 mg) PO DAILY 90 days 45 caps 1RF Patient Instructions: - Take clonidine 0.1 mg three times daily as prescribed. - Use nebulizer solution for asthma attacks. - Continue current regimen for psoriasis and mental health management. - Follow up with project consultant in three months for kidney function. - Continue avoiding allergens and adhere to medication precautions. - Consider scheduling a colonoscopy for colon cancer screening.
--- OUTSIDE RECORDS SUMMARY | 2024-11-13 15:29 | XMS_ITS | Clinical Summary ---
Author Organization [facility] ity Address [address] [place] [address] Care Team Providers Care Radioisotope Production Operator Name Role Phone Unavailable Primary Care Provider [...]
--- OUTSIDE RECORDS SUMMARY | 2024-11-13 15:29 | XMS_ITS | Clinical Summary ---
Author Organization [facility] Address [address] [place] [id number] Care Team Providers Care Social Science Instructor Name Role Phone Greta Ribeiro MD Primary Care Provider [phone] Medications Ventolin HFA 108 (90 Base) MCG/ACT [...] (1 of 3 - 19+ 3-dose series) 05/27 Colorectal Cancer Screening: Annual FOBT 2017 Colorectal Cancer Screening: Colonoscopy 2017 Colorectal Cancer Screening: Sigmoidoscopy 2017 Pneumococcal Vaccine: 50+ Years (1 of 1 - PCV) 018 Influenza Vaccine (Season Ended) 2025 Insurance [facility] ANNIKA PRASAD [id number] [facility] Care Teams Social Science Instructor Relationship Specialty Start Date End Date Greta Ribeiro MD [address] [place] PCP - General Internal Medicine 09/25/20
== END 2024-11-13 14:50 | disposition home or self-care (01) ==
LOC: HO.HMCH 14:16
PROVIDERS: PCP Internal Medicine; Visit Provider Internal Medicine
DX: F33.0 Major depressive disorder, recurrent, mild (principal); N18.32 Chronic kidney disease, stage 3b; J45.40 Moderate persistent asthma, uncomplicated; I15.1 Hypertension secondary to other renal disorders; F41.9 Anxiety disorder, unspecified

== ENCOUNTER → 2024-11-13 14:15 | Outpatient (BNVA) | payer OTHER, SELFPAY | PROVIDERS: PCP Internal Medicine; Visit Provider Internal Medicine | DX: I15.1 Hypertension secondary to other renal disorders (principal); N18.32 Chronic kidney disease, stage 3b; J45.40 Moderate persistent asthma, uncomplicated; F33.0 Major depressive disorder, recurrent, mild; F41.9 Anxiety disorder, unspecified | CPT/HCPCS: 99212 ==

== ENCOUNTER 2024-11-29 10:55 | Outpatient (AMB) | payer OTHER, SELFPAY ==
--- NOTE | 2024-11-29 11:23 | MHC.OFFVIS ---
Intake Visit Reasons: 3m/labs Intake Note: Patient is present for 3M/LABS Urology Medication:TADALAFIL Antibiotic Allergy:NONE Blood Thinner:NONE Ornithology Teacher Required: No Allergies sumatriptan Allergy (Mild, Verified 11/29/24 11:27) headaches nifedipine Adverse Reaction (Intermediate, Verified 11/29/24 11:27) anxious lisinopril Adverse Reaction (Mild, Verified 11/29/24 11:27) Anxiety HPI Comments Details: Benjie is a male. He is a patient of Dr. Bird. He seen for the following urologic conditions - erectile dysfunction - testicular pain Reviewed recent laboratories 08/28 testosterone 487, LH 9.0, PSA 1.6 Testicular pain Had been followed in the past and seen by Dr. Soliman in 2018 Has recurrent pain particularly in the right side On examination has pain on the right vas deferens Had previously benefitted from targeted injections Discussed and recommended right side microscopic vasal denervation Success rates typically 85% if prior response to injections He would like to proceed Erectile dysfunction Has been given daily tadalafil with on demand [facility] Medical History (Updated 11/13/24 @ 15:17 by Greta Olivera MD) Mild recurrent major depression Severe major depression without psychotic features CKD stage 3a, GFR 45-59 ml/min SHAMIR (acute kidney injury) Chronic allergic rhinitis Atopy Allergies Asthma Acute hypoxemic respiratory failure Moderate major depression Atrial septal aneurysm Zxrmr-di-qmzzmks kidney injury Anxiety Benign essential hypertension Tachycardia GERD (gastroesophageal reflux disease) Headache Hyperostosis Severe depression Moderate asthma Essential hypertension Mixed hyperlipidemia Surgical History History of hernia surgery Family History Father Seizures Mother No problems noted. Social History Household Members: Family Housing: Apartment Housing Other:: [facility] Do you presently have visiting nurse or other home services: Yes Alcohol intake: never Patient Tobacco Use Status: Former Tobacco user e-Cigarette/Vaping Use: Never Used Second Hand Smoke Exposure: No service: No Current occupational status: disabled Cognitive needs: No Hearing needs: No Vision needs: Yes Review of Systems Const Denies chills and Denies fever(s) Card Reports no additional complaints and Denies syncope Resp Denies cough GI Denies abdominal pain and Denies heartburn Reports as per HPI and Denies change in libido Neuro Denies syncope Psych Denies change in libido Endo Denies change in libido Physical Exam Const General: cooperative, healthy appearing, comfortable and no acute distress Orientation/consciousness: patient oriented x3 HEENT Face and sinus: Yes normal facial exam Mouth: moist mucous membranes Neck Neck: Yes normal visual inspection, Yes full ROM and Yes trachea midline Chest Chest palpation & inspection: normal inspection of the chest Resp Effort & Inspection: normal respiratory effort, able to speak in complete sentences and no respiratory distress GI Inspection: Yes normal to inspection Back/Spine/Pelvis Cervical Spine: normal cervical lordosis Thoracic/Lumbar Spine: thoracic and lumbar spine normal to inspection Skin General skin exam: no rashes or lesions noted Neuro General: patient oriented x3, gait normal, tone normal and moves all extremities Extrem General: Yes normal to inspection and Yes capillary refill normal Assessment & Plan Assessment & Plan (1) Testicle tenderness: Code(s): N50.819 - Testicular pain, unspecified Category: Medical (2) Erectile dysfunction: Code(s): N52.9 - Male erectile dysfunction, unspecified Category: Medical Plan Risks, benefits and alternatives to therapy were discussed. These include but are not limited to infection, bleeding, damage to local organs and tissues, need for further interventions. Anesthetic risks regarding cardiac arrhythmia, blood clots, and potential mortality were discussed. The patient understands the typical recovery time and the outpatient nature of the procedure. After consideration of these risks the patient gives full informed consent and they wish to move ahead with the procedure. Particular we focused on potential loss of testicle. Patient Instructions: This note is constructed using voice recognition software. While every effort has been made to ensure accuracy brand ambassadors promotional sales errors may have been included. Imaging studies, laboratory and physical exam results were discussed and reviewed in detail. No major barriers to patient understanding were identified. An opportunity to ask questions regarding the treatment plan was provided. All questions were answered. The patient expressed understanding and agreement with the above treatment plan. The patient is aware they should contact our office by phone for worsening of their current condition or the appearance of new urologic symptoms. Compliance is encouraged with any medications and followup testing that is ordered. It is a privilege to participate in the urologic care of your patient. If you have any questions or concerns regarding treatment for the above conditions, or other urologic issues, please do not hesitate to contact me. The office telephone contact is [phone]. Sincerely, Dr Alex Soliman MD, [facility] - Urology Compassionate Specialist Care for the Genitourinary System Coding Level of Care Code Est Pt Level 4 (44478) Diagnoses Testicle tenderness N50.819 Erectile dysfunction N52.9
--- OUTSIDE RECORDS SUMMARY | 2024-11-29 11:24 | XMS_ITS | Clinical Summary ---
Author Organization [facility] ity Address [address] [place] [address] Care Team Providers Care Budget Report Clerk Name Role Phone Unavailable Primary Care Provider [...]
== END 2024-11-29 11:46 | disposition home or self-care (01) ==
LOC: HO.HUSH 10:56
PROVIDERS: PCP Internal Medicine; Visit Provider Urology
DX: N50.811 Right testicular pain (principal); N52.9 Male erectile dysfunction, unspecified
CPT/HCPCS: 99214

== ENCOUNTER → 2024-11-29 10:55 | Outpatient (BNVA) | payer OTHER, SELFPAY | PROVIDERS: PCP Internal Medicine; Visit Provider Urology | DX: N50.811 Right testicular pain (principal); N52.9 Male erectile dysfunction, unspecified | CPT/HCPCS: 99212 ==

== ENCOUNTER 2024-12-21 14:27 | Outpatient (AMB) | payer OTHER, SELFPAY ==
[2024-12-21 14:29] VITALS: BP 148/94; PULSE 95; O2SAT 97; BMI 20.2
--- NOTE | 2024-12-21 14:29 | MHC.OFFVIS ---
Vital Signs 12/21/24 14:29 Height 5 ft 9 in Weight 136 lb 10.986 oz BMI 20.2 BP 148/94 H Blood Pressure Location Lt brachial Position Sitting Pulse 95 Pulse Source Pulse Oximeter Pulse Oximetry (%) 97 Oxygen Delivery Method Room Air Intake Visit Reasons: Asthma Growth Media Mixer Mushroom Required: No Allergies sumatriptan Allergy (Mild, Verified 12/21/24 14:31) headaches nifedipine Adverse Reaction (Intermediate, Verified 12/21/24 14:31) anxious lisinopril Adverse Reaction (Mild, Verified 12/21/24 14:31) Anxiety HPI Comments Details: The patient is a 54-year-old gentleman known significant asthma in addition to atopic dermatitis. He does follow-up closely with dermatology. He has had multiple exacerbations from his breathing standpoint. The last time she was evaluated in the ER was back in October. He did have a chest x-ray without any significant disease. The patient had a chest x-ray without any acute disease which is reassuring. He did have blood work demonstrating significant eosinophilia 1500. explained to him that this is significantly elevated. Quickly after taking prednisone the eosinophils decreased to 0. His symptoms drastically improved when he is on prednisone. He was placed on Trelegy 100 which seems to be effective in helping his symptoms. He continues to have wheezing on and off throughout the day. He also uses her rescue inhaler typically more than twice a week. Therefore, the patient does have severe persistent asthma. Appears to have atopy with significant chronic rhinitis and what appears to be atopic dermatitis. Will go ahead and request blood work including allergy testing. The patient also needs pulmonary function studies. Will continue to optimize his respiratory therapy. However, if he does not improve then I do believe the biologic therapy will be warranted at that time. 04/13/2024 the patient is here for a pulmonary follow-up visit. The patient has been still struggling with breathing. The Trelegy inhaler has been helpful. Although he still having hard time. He has significant allergies based on his allergy testing. His IgE levels up to above 7000 in his eosinophils are above a 1000. 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 He has significant atopic dermatitis along with chronic rhinitis. He has maximizing his respiratory therapy still continues to be symptomatic. He is having hard time we did breathing now. Little inspiratory and expiratory wheezing. Will go ahead and give him a course of prednisone at this time. The patient will be a great candidate for biologic therapy with Dupixent. Will go ahead and request Dupixent at this time. 08/13/2024 the patient is here for a pulmonary follow-up visit. Overall the patient has been doing well. Dupixent injections have been extremely helpful for his atopic dermatitis in addition to his asthma. Although after a week he starts having symptoms again. He is wondering if there is a stronger dose. He is already on the maximum dose of Dupixent however. He continues to have chronic bronchitis. The patient will benefit from a Daliresp as a medication for his chronic obstructive airway disease into try to minimize use of prednisone. Will request a smaller dose specially because of his weight minimize weight loss. If he tolerates it and we need to increase it further we can increase it to the 500 mcg dose. Will follow-up in 6 months. If he has any issues prior to that he will call for an earlier assessment. 12/21/2024 the patient is here for pulmonary follow-up visit. Overall he is doing a lot better. The Daliresp has been helpful. He has been noticing less respiratory complaints or chronic bronchitis. Although he has had some weight loss so therefore we are not going to increase it to the higher dose at this point. He does complaint of shortness of breath with activity. Also some chest pressure. Would be reasonable to do a cardiac evaluation specially since his pulmonary therapies are optimized. We did go for brief walking oximetry in his heart rate was indeed elevated he was dyspneic although his oxygen was reassuring. Did not have any significant wheezing on exam to explain any bronchospasms. Although walking outside it may be different specially with the heat and humidity now taking effect. The patient will undergo a cardiac stress test an EKG and then will follow-up in 6 months. He will continue with the current respiratory therapy. [facility] Medical History (Updated 12/23/24 @ 22:32 by Paulo Guido MD) Mild recurrent major depression Severe major depression without psychotic features CKD stage 3a, GFR 45-59 ml/min SHAMIR (acute kidney injury) Chronic allergic rhinitis Atopy Allergies Asthma Acute hypoxemic respiratory failure Moderate major depression Atrial septal aneurysm Znotu-sv-sdcckco kidney injury Anxiety Benign essential hypertension Tachycardia GERD (gastroesophageal reflux disease) Headache Hyperostosis Severe depression Moderate asthma Essential hypertension Mixed hyperlipidemia Surgical History History of hernia surgery Family History Father Seizures Mother No problems noted. Social History Household Members: Family Housing: Apartment Housing Other:: [facility] Do you presently have visiting nurse or other home services: Yes Alcohol intake: never Patient Tobacco Use Status: Former Tobacco user e-Cigarette/Vaping Use: Never Used Second Hand Smoke Exposure: No service: No Current occupational status: disabled Cognitive needs: No Hearing needs: No Vision needs: Yes Review of Systems Const Denies fatigue, Denies fever(s) and Reports weight loss Eyes Reports no additional complaints ENT Reports nasal congestion and Reports nasal discharge Card Denies chest pain Resp Reports cough and Reports wheezing GI Reports dyspepsia and Reports heartburn Musc Reports no additional complaints Skin/Breast Reports rash Endo Denies fatigue Aller/Immun Reports wheezing Physical Exam Vital Signs: Last Vital Signs Pulse 95 12/21/24 14:29 BP 148/94 H 12/21/24 14:29 Pulse Ox 97 12/21/24 14:29 Oxygen Delivery Method Room Air 12/21/24 14:29 BMI result Body Mass Index 20.2 Const General: comfortable HEENT Head: Yes normocephalic Neck Neck: Yes supple Chest Chest palpation & inspection: normal inspection of the chest Resp Effort & Inspection: normal respiratory effort Auscultation: clear to auscultation bilaterally and no wheezes Cardio Heart sounds: S1 normal heart sound present and S2 normal heart sound present GI Palpation (GI): Soft to palpation Skin Rashes: rashes noted Extrem General: Yes no clubbing, cyanosis or edema Assessment & Plan Assessment & Plan (1) Asthma: Code(s): J45.909 - Unspecified asthma, uncomplicated Category: Medical Qualifiers: Asthma complication type: uncomplicated Asthma persistence: persistent Asthma severity: severe Qualified Code(s): J45.50 - Severe persistent asthma, uncomplicated (2) Allergies: Code(s): T78.40XA - Allergy, unspecified, initial encounter Category: Medical Qualifiers: Encounter type: initial encounter Qualified Code(s): T78.40XA - Allergy, unspecified, initial encounter (3) Atopy: Code(s): Z88.9 - Allergy status to unspecified drugs, medicaments and biological substances Category: Medical (4) Chronic allergic rhinitis: Code(s): J30.9 - Allergic rhinitis, unspecified Category: Medical (5) Eczematous dermatitis: Code(s): L30.9 - Dermatitis, unspecified Category: Medical Qualifiers: Eczema type: unspecified Qualified Code(s): L30.9 - Dermatitis, unspecified (6) Dyspnea: Code(s): R06.00 - Dyspnea, unspecified Category: Medical Qualifiers: Dyspnea type: dyspnea on exertion Qualified Code(s): R06.09 - Other forms of dyspnea Plan Trelegy 200 Singulair SOFIA as needed antihistamine therapy Dupixent for his severe persistent asthma fluticasone nasal spray Daliresp 250mcg EKG Stress ECHO F/U 4-6 months Orders: Orders ECG 12 lead EKG 12/21/24 J44.9 - Chronic obstructive pulmonary disease, unspecified, R06.00 - Dyspnea, unspecified CA echo stress exercise 12/21/24 R06.00 - Dyspnea, unspecified Coding Level of Care Code Est Pt Level 4 (67985) Complex EM visit Add On G2211 Diagnoses Severe persistent asthma without complication J45.50 Asthma complication type: uncomplicated Asthma persistence: persistent Asthma severity: severe Allergy, initial encounter T78.40XA Encounter type: initial encounter Atopy Z88.9 Chronic allergic rhinitis J30.9 Eczema, unspecified type L30.9 Eczema type: unspecified Dyspnea on exertion R06.09 Dyspnea type: dyspnea on exertion Time Spent (min) 17
--- OUTSIDE RECORDS SUMMARY | 2024-12-21 14:30 | XMS_ITS | Clinical Summary ---
Author Organization [facility] ity Address [address] [place] [address] Care Team Providers Care Health And Wellness Manager Name Role Phone Unavailable Primary Care Provider [...]
== END 2024-12-21 14:46 | disposition home or self-care (01) ==
LOC: HO.HPS 14:28
PROVIDERS: PCP Internal Medicine; Visit Provider Hospitalist
DX: J45.50 Severe persistent asthma, uncomplicated (principal); T78.40XA Allergy, unspecified, initial encounter; Z88.9 Allergy status to unspecified drugs, medicaments and biological substances; J30.9 Allergic rhinitis, unspecified; L30.9 Dermatitis, unspecified; R06.09 Other forms of dyspnea
CPT/HCPCS: 99213; G2211

== ENCOUNTER → 2024-12-21 14:27 | Outpatient (BNVA) | payer OTHER, SELFPAY | PROVIDERS: PCP Internal Medicine; Visit Provider Hospitalist | DX: J45.50 Severe persistent asthma, uncomplicated (principal); L20.9 Atopic dermatitis, unspecified; J31.0 Chronic rhinitis; J44.9 Chronic obstructive pulmonary disease, unspecified; L30.9 Dermatitis, unspecified; R06.09 Other forms of dyspnea; T78.40XA Allergy, unspecified, initial encounter; Z88.9 Allergy status to unspecified drugs, medicaments and biological substances | CPT/HCPCS: 99212 ==

== ENCOUNTER 2025-01-07 13:39 | Outpatient (REF) | payer OTHER, SELFPAY ==
--- OUTSIDE RECORDS SUMMARY | 2025-01-07 14:09 | XMS_ITS | Clinical Summary ---
Author Organization [facility] ity Address [address] [place] [address] Care Team Providers Care Cryogenics Engineer Name Role Phone Unavailable Primary Care Provider [...] Vaccines (1 of 2) 2018 COVID-19 Vaccine (1 - 2023-2 5 season) 2024 Influenza Vaccine (#1) 2025 HIB Vaccines Aged Out No longer [...] 5 Years) and At-Risk Patients (6 to 49 Years) Aged Out No longer eligible b ased on patient's age to complete this topic RSV Immunization Patients Un darren 20 months Aged Out No longer eligible b ased on patient's age to complete this topic Varicella Vaccines Aged Out No longer eligible based on patient's age to complete this topic
--- OUTSIDE RECORDS SUMMARY | 2025-01-07 14:09 | XMS_ITS | Clinical Summary ---
Author Organization [facility] Address [address] [place] [id number] Care Team Providers Care Agricultural Engineer Name Role Phone Greta Ribeiro MD Primary Care Provider [phone] Medications Ventolin HFA 108 (90 Base) MCG/ACT [...] of 1 - PCV) 018 Influenza Vaccine (#1) 2025 Insurance [facility] ANNIKA PRASAD [id number] [facility] Care Teams Agricultural Engineer Relationship Specialty Start Date End Date Greta Ribeiro MD [address] [place] PCP - General Internal Medicine 09/25/20
[2025-01-07 16:09] LABS: Anion Gap 12 (12-20); Blood Urea Nitrogen 23 mg/dL (9-16); Carbon Dioxide 29 mmol/L (22-29); Chloride 103 mmol/L (96-108); Estimated Glomerular Filt Rate 33; Potassium 3.9 mmol/L (3.3-5.1); Sodium 140 mmol/L (135-145)
== END 2025-01-07 13:40 | disposition home or self-care (01) ==
LOC: HO.LAB 13:39
PROVIDERS: PCP Internal Medicine; Visit Provider Internal Medicine Nephrology
DX: N18.32 Chronic kidney disease, stage 3b (principal)
CPT/HCPCS: 36415; 80051; 82565; 84520

== ENCOUNTER 2025-06-18 10:05 | Outpatient (AMB) | payer OTHER, SELFPAY ==
[2025-06-18 10:17] VITALS: BP 140/76; PULSE 70; O2SAT 100; BMI 20.7
--- NOTE | 2025-06-18 10:17 | A.OFFVIS_ITS ---
Vital Signs 06/18/25 10:17 Height 5 ft 9 in Weight 139 lb 15.896 oz BMI 20.7 BP 140/76 H Blood Pressure Location Lt brachial Position Sitting Pulse 70 Pulse Source Pulse Oximeter Pulse Oximetry (%) 100 Oxygen Delivery Method Room Air Intake Visit Reasons: Asthma Recreation Technician Required: Yes Recreation Technician Services: Recreation Technician Offered & Declined Recreation Technician Name: MD speaks amharic Machine Set Up: Machine Set Up offered & declined Accompanied by: Self / Same As Patient Allergies lisinopril Adverse Reaction (Intermediate, Verified 06/18/25 10:22) Anxiety nifedipine Adverse Reaction (Intermediate, Verified 06/18/25 10:22) Anxiety sumatriptan Adverse Reaction (Intermediate, Verified 06/18/25 10:22) headaches HPI Comments Details: The patient is a 55-year-old gentleman known significant asthma in addition to atopic dermatitis. He does follow-up closely with dermatology. He has had multiple exacerbations from his breathing standpoint. The last time she was evaluated in the ER was back in October. He did have a chest x-ray without any significant disease. The patient had a chest x-ray without any acute disease which is reassuring. He did have blood work demonstrating significant eosinophilia 1500. explained to him that this is significantly elevated. Quickly after taking prednisone the eosinophils decreased to 0. His symptoms drastically improved when he is on prednisone. He was placed on Trelegy 100 which seems to be effective in helping his symptoms. He continues to have wheezing on and off throughout the day. He also uses her rescue inhaler typically more than twice a week. Therefore, the patient does have severe persistent asthma. Appears to have atopy with significant chronic rhinitis and what appears to be atopic dermatitis. Will go ahead and request blood work including allergy testing. The patient also needs pulmonary function studies. Will continue to optimize his respiratory therapy. However, if he does not improve then I do believe the biologic therapy will be warranted at that time. 04/13/2024 the patient is here for a pulmonary follow-up visit. The patient has been still struggling with breathing. The Trelegy inhaler has been helpful. Although he still having hard time. He has significant allergies based on his allergy testing. His IgE levels up to above 7000 in his eosinophils are above a 1000. 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 He has significant atopic dermatitis along with chronic rhinitis. He has maximizing his respiratory therapy still continues to be symptomatic. He is having hard time we did breathing now. Little inspiratory and expiratory wheezing. Will go ahead and give him a course of prednisone at this time. The patient will be a great candidate for biologic therapy with Dupixent. Will go ahead and request Dupixent at this time. 08/13/2024 the patient is here for a pulmonary follow-up visit. Overall the patient has been doing well. Dupixent injections have been extremely helpful for his atopic dermatitis in addition to his asthma. Although after a week he starts having symptoms again. He is wondering if there is a stronger dose. He is already on the maximum dose of Dupixent however. He continues to have chronic bronchitis. The patient will benefit from a Daliresp as a medication for his chronic obstructive airway disease into try to minimize use of prednisone. Will request a smaller dose specially because of his weight minimize weight loss. If he tolerates it and we need to increase it further we can increase it to the 500 mcg dose. Will follow-up in 6 months. If he has any issues prior to that he will call for an earlier assessment. 06/18/2025 the patient is here for pulmonary follow-up visit. Overall he is doing a lot better. The Daliresp has been helpful. He has been noticing less respiratory complaints or chronic bronchitis. Although he has had some weight loss so therefore we are not going to increase it to the higher dose at this point. He does complaint of shortness of breath with activity. Also some chest pressure. Would be reasonable to do a cardiac evaluation specially since his pulmonary therapies are optimized. he did have a scheduled stress test but he did not pursue it. He is going to have to reschedule it. Also needs to have his EKG done. Did not have any significant wheezing on exam to explain any bronchospasms. Overall the patient is doing well from a respiratory status. He will continue with the current respiratory regimen. He did get the flu shot today. [facility] Medical History (Updated 02/01/25 @ 12:59 by Paulo Guido MD) Mild recurrent major depression Severe major depression without psychotic features CKD stage 3a, GFR 45-59 ml/min SHAMIR (acute kidney injury) Chronic allergic rhinitis Atopy Allergies Asthma Acute hypoxemic respiratory failure Moderate major depression Atrial septal aneurysm Wxswm-ul-dgjvxdh kidney injury Anxiety Benign essential hypertension Tachycardia GERD (gastroesophageal reflux disease) Headache Hyperostosis Severe depression Moderate asthma Essential hypertension Mixed hyperlipidemia Surgical History (Updated 01/31/25 @ 14:04 by Sapphire Galloway RN) History of hernia surgery (~2021) Family History Father Seizures Mother No problems noted. Social History Household Members: Family Household Members Other:: mother Housing: Apartment Housing Other:: [facility] Are you a primary care transitions nurse to a significant other at home: No Do you presently have visiting nurse or other home services: No Alcohol intake: never Patient Tobacco Use Status: Never used Tobacco e-Cigarette/Vaping Use: Never Used Second Hand Smoke Exposure: No service: No Current occupational status: disabled Cognitive needs: No Hearing needs: No Vision needs: Yes Review of Systems Const Denies fatigue, Denies fever(s) and Reports weight loss Eyes Reports no additional complaints ENT Reports nasal congestion and Reports nasal discharge Card Denies chest pain Resp Reports cough and Reports wheezing GI Reports dyspepsia and Reports heartburn Musc Reports no additional complaints Skin/Breast Reports rash Endo Denies fatigue Aller/Immun Reports wheezing Physical Exam Vital Signs: Last Vital Signs Pulse 70 06/18/25 10:17 BP 140/76 H 06/18/25 10:17 Pulse Ox 100 06/18/25 10:17 Oxygen Delivery Method Room Air 06/18/25 10:17 BMI result Body Mass Index 20.7 Const General: comfortable HEENT Head: Yes normocephalic Neck Neck: Yes supple Chest Chest palpation & inspection: normal inspection of the chest Resp Effort & Inspection: normal respiratory effort Auscultation: clear to auscultation bilaterally and no wheezes Cardio Heart sounds: S1 normal heart sound present and S2 normal heart sound present GI Palpation (GI): Soft to palpation Skin Rashes: rashes noted Extrem General: Yes no clubbing, cyanosis or edema Office Procedures Flu Questionnaire Does the patient have a severe egg allergy?: No Does the patient have severe life threatening allergies?: No Does the patient have a fever or illness today?: No Has the patient ever had Guillain-Ainsworth Syndrome?: No Has the patient ever had any past reaction to a flu shot?: No Immunizations Fluarix [id number] (PF) 45 mcg (15 mcg x 3)/0.5 mL IM syringe Performing Provider: Paulo Guido MD Performing Location: [facility] Administered by: Paulo Guido MD on 06/18/25 12:58 Dose Route Admin Location Dispensed Lot Number Expiration Date NDC Color Buffer 0.5 mL IM Left Deltoid 0.5 mL [id number] 12/31/25 05045-560-09 [employer] VIS Given Date VIS Provided VIS Publication Date 06/18/25 Single Vaccine 24 Eligibility Eligibility Date Funding Source Not [facility] Eligible 06/18/25 Private Assessment & Plan Assessment & Plan (1) Asthma: Code(s): J45.909 - Unspecified asthma, uncomplicated Category: Medical Qualifiers: Asthma complication type: uncomplicated Asthma persistence: persistent Asthma severity: severe Qualified Code(s): J45.50 - Severe persistent asthma, uncomplicated (2) Allergies: Code(s): T78.40XA - Allergy, unspecified, initial encounter Category: Medical Qualifiers: Encounter type: initial encounter Qualified Code(s): T78.40XA - Allergy, unspecified, initial encounter (3) Atopy: Code(s): Z88.9 - Allergy status to unspecified drugs, medicaments and biological substances Category: Medical (4) Chronic allergic rhinitis: Code(s): J30.9 - Allergic rhinitis, unspecified Category: Medical (5) Eczematous dermatitis: Code(s): L30.9 - Dermatitis, unspecified Category: Medical Qualifiers: Eczema type: unspecified Qualified Code(s): L30.9 - Dermatitis, unspecified (6) Dyspnea: Code(s): R06.00 - Dyspnea, unspecified Category: Medical Qualifiers: Dyspnea type: dyspnea on exertion Qualified Code(s): R06.09 - Other forms of dyspnea Plan Trelegy 200 Singulair SOFIA as needed antihistamine therapy Dupixent for his severe persistent asthma fluticasone nasal spray Start Astelin nasal spray Daliresp 250mcg EKG and cardiac stress test. he will likely need to reschedule his stress test F/U 4-6 months Orders: Orders Influenza [id number] Immunization Today Z23 - Encounter for immunization Medications: New azelastine administer into each nostril 2 sprays intranasal BID 30 mL 6RF 30 days Refilled fluticasone propionate 50 mcg/actuation 2 sprays intranasal DAILY 15.8 mL 11RF 30 days J31.0 - Chronic rhinitis Coding Level of Care Code Est Pt Level 4 (69155) Diagnoses Severe persistent asthma without complication J45.50 Asthma complication type: uncomplicated Asthma persistence: persistent Asthma severity: severe Allergy, initial encounter T78.40XA Encounter type: initial encounter Atopy Z88.9 Chronic allergic rhinitis J30.9 Eczema, unspecified type L30.9 Eczema type: unspecified Dyspnea on exertion R06.09 Dyspnea type: dyspnea on exertion Time Spent (min) 16
--- OUTSIDE RECORDS SUMMARY | 2025-06-18 12:26 | XMS_ITS | Clinical Summary ---
Author Organization [facility] ity Address [address] [place] [address] Care Team Providers Care It Security Analyst Name Role Phone Unavailable Primary Care Provider [...] 2018 Zoster Vaccines (1 of 2) 2018 Depression Screening 07/04/2024 COVID-19 Vaccine (1 - 2024-2 6 season) 2025 Influenza Vaccine (#1) 2025 RSV Immunization Adult Patie nts (1 - 1-dose 75+ series) 2043 HIB Vaccines Aged Out No longer eligi [...]
== END 2025-06-18 10:50 | disposition home or self-care (01) ==
LOC: HO.HPS 10:05
PROVIDERS: PCP Internal Medicine; Visit Provider Hospitalist
DX: J45.50 Severe persistent asthma, uncomplicated (principal); T78.40XA Allergy, unspecified, initial encounter; Z88.9 Allergy status to unspecified drugs, medicaments and biological substances; J30.9 Allergic rhinitis, unspecified; L30.9 Dermatitis, unspecified; R06.09 Other forms of dyspnea; Z23 Encounter for immunization
CPT/HCPCS: 99214

== ENCOUNTER → 2025-06-18 10:05 | Outpatient (BNVA) | payer OTHER, SELFPAY | PROVIDERS: PCP Internal Medicine; Visit Provider Hospitalist | DX: J45.50 Severe persistent asthma, uncomplicated (principal); T78.40XA Allergy, unspecified, initial encounter; J31.0 Chronic rhinitis; J44.9 Chronic obstructive pulmonary disease, unspecified; R06.09 Other forms of dyspnea; L30.9 Dermatitis, unspecified; Z23 Encounter for immunization; Z88.9 Allergy status to unspecified drugs, medicaments and biological substances | CPT/HCPCS: 90471; 90656; 99212 ==